=== PATIENT | male | born 1975 | race Caucasian/White ===

== ENCOUNTER → 2020-09-30 08:30 | Outpatient (CLI) | payer OTHER, SELFPAY ==
--- NOTE | 2020-09-30 08:36 | US_ITS ---
STUDY: ABDOMINAL ULTRASOUND - RIGHT UPPER QUADRANT REASON FOR VISIT: Male, 45 years old RUQ PAIN X 2-3 WEEKS TECHNIQUE: Ultrasound evaluation of the right upper quadrant was performed with real-time and static jonas-scale imaging. TECHNICAL QUALITY: Limited. Examination limited by bowel gas. COMPARISON: None. FINDINGS: Liver: The liver is enlarged and measures 20.2 cm. There is increased echogenicity consistent with fatty infiltration. The bile ducts are within normal limits. There is hepatic color flow. The direction of portal flow is hepatopetal. There is no demonstrated mass lesion. Gallbladder: Normal distended gallbladder. The gallbladder wall measures 2 mm. There is a negative sonographic Vale''s sign. There is no pericholecystic fluid. There is a solitary echogenic gallstone within the gallbladder. Common Bile Duct (C.B.D.): The common bile duct measures 2 mm. Pancreas: Normal size of the head, body of the pancreas. The tail portion is obscured due to overlying bowel gas. There is normal echogenicity of the pancreas. There is no demonstrated pancreatic mass or cyst. Right Kidney: Normal size of the right kidney. The right kidney measures 14.6 cm x 6.8 cm x 5.8 cm. Normal renal cortex. The right cortex measures 1.7 cm. There is no demonstrated renal mass or cyst. There is no right hydronephrosis. US/Gallbladder IMPRESSION: Hepatomegaly and fatty infiltration of the liver. Findings suggestive of a solitary gallstone measuring 4 mm. Electronically Signed: Clem Ying MD at 12:36 EST , Service support ,
== END ==
PROVIDERS: PCP Family Medicine; Referring Provider Family Medicine; Visit Provider Family Medicine
DX: K80.20 Calculus of gallbladder without cholecystitis without obstruction (principal); R10.11 Right upper quadrant pain
CPT/HCPCS: 76705

== ENCOUNTER → 2020-10-07 15:22 | Outpatient (CLI) | payer OTHER, SELFPAY ==
[2020-10-07 14:50] VITALS: BMI 36.9
== END ==
PROVIDERS: PCP Family Medicine; Referring Provider Surgery; Visit Provider Surgery
DX: L02.212 Cutaneous abscess of back [any part, except buttock and flank] (principal)
CPT/HCPCS: 87070; 87075; 87077; 87186; 87205

== ENCOUNTER 2021-09-22 08:47 | Outpatient (CLI) | payer OTHER, SELFPAY ==
--- NOTE | 2021-09-22 08:48 | US_ITS ---
STUDY: ABDOMINAL ULTRASOUND - RIGHT UPPER QUADRANT REASON FOR VISIT: Male, 46 years old FATTY LIVER TECHNIQUE: Ultrasound evaluation of the right upper quadrant was performed with real-time and static jonas-scale imaging. TECHNICAL QUALITY: Adequate. COMPARISON: Comparison is made with prior examination of the right upper quadrant dated 09/30/2020. FINDINGS: Liver: The liver is enlarged and measures 20.1 cm. There is increased echogenicity consistent with fatty infiltration. Focal fatty sparing is seen adjacent to the gallbladder fossa. The bile ducts are within normal limits. There is hepatic color flow. The direction of portal flow is hepatopetal. There is no demonstrated mass lesion. Gallbladder: Normal distended gallbladder. The gallbladder wall measures 1.6 mm. There is a negative sonographic Vale''s sign. There is no pericholecystic fluid. There is a solitary echogenic gallstone within the gallbladder. This measures 4 mm. Common Bile Duct (C.B.D.): The common bile duct measures 3.8 mm. Pancreas: Normal size of the head, body and tail of the pancreas. There is normal echogenicity of the pancreas. There is no demonstrated pancreatic mass or cyst. Right Kidney: Normal size of the right kidney. The right kidney measures 14.1 cm x 6.1 cm x 5.6 cm. Normal renal cortex. The right cortex measures 1.6 cm. There is no demonstrated renal mass or cyst. There is no right hydronephrosis. IMPRESSION: Hepatomegaly and diffuse fatty infiltration of the liver. Solitary gallstone measuring 4 mm. Electronically Signed: Clem Ying MD at 10:29 EST , STUDY: ABDOMINAL ULTRASOUND - ELASTOGRAPHY REASON FOR VISIT: Male, 46 years old. Hepatomegaly and fatty infiltration of the liver. TECHNIQUE: Liver stiffness measurements were obtained on a [employer] 85 ultrasound machine using a CA 1-7 probe following the SRU guidelines. 3 measurements were obtained using a 2-D-SWE method. The IQR/M was 22% suggesting a quality data set. TECHNICAL QUALITY: Adequate. COMPARISON: Comparison is made with prior examination done earlier in the day. FINDINGS: Liver: There is evidence of hepatomegaly and fatty infiltration of the liver. Median liver stiffness measured 9.3 kPa. US/Abdomen Limited IMPRESSION: Liver stiffness measures 9.3 kPa compatible with F3 Metavir score. Electronically Signed: Clem Ying MD at 10:31 EST ,
--- NOTE | 2021-09-22 08:49 | US_ITS ---
STUDY: ABDOMINAL ULTRASOUND - RIGHT UPPER QUADRANT REASON FOR VISIT: Male, 46 years old FATTY LIVER TECHNIQUE: Ultrasound evaluation of the right upper quadrant was performed with real-time and static jonas-scale imaging. TECHNICAL QUALITY: Adequate. COMPARISON: Comparison is made with prior examination of the right upper quadrant dated 09/30/2020. FINDINGS: Liver: The liver is enlarged and measures 20.1 cm. There is increased echogenicity consistent with fatty infiltration. Focal fatty sparing is seen adjacent to the gallbladder fossa. The bile ducts are within normal limits. There is hepatic color flow. The direction of portal flow is hepatopetal. There is no demonstrated mass lesion. Gallbladder: Normal distended gallbladder. The gallbladder wall measures 1.6 mm. There is a negative sonographic Vale''s sign. There is no pericholecystic fluid. There is a solitary echogenic gallstone within the gallbladder. This measures 4 mm. Common Bile Duct (C.B.D.): The common bile duct measures 3.8 mm. Pancreas: Normal size of the head, body and tail of the pancreas. There is normal echogenicity of the pancreas. There is no demonstrated pancreatic mass or cyst. Right Kidney: Normal size of the right kidney. The right kidney measures 14.1 cm x 6.1 cm x 5.6 cm. Normal renal cortex. The right cortex measures 1.6 cm. There is no demonstrated renal mass or cyst. There is no right hydronephrosis. IMPRESSION: Hepatomegaly and diffuse fatty infiltration of the liver. Solitary gallstone measuring 4 mm. Electronically Signed: Clem Ying MD at 10:29 EST , STUDY: ABDOMINAL ULTRASOUND - ELASTOGRAPHY REASON FOR VISIT: Male, 46 years old. Hepatomegaly and fatty infiltration of the liver. TECHNIQUE: Liver stiffness measurements were obtained on a [employer] 85 ultrasound machine using a CA 1-7 probe following the SRU guidelines. 3 measurements were obtained using a 2-D-SWE method. The IQR/M was 22% suggesting a quality data set. TECHNICAL QUALITY: Adequate. COMPARISON: Comparison is made with prior examination done earlier in the day. FINDINGS: Liver: There is evidence of hepatomegaly and fatty infiltration of the liver. Median liver stiffness measured 9.3 kPa. US/Elastography Parenchyma/Organ IMPRESSION: Liver stiffness measures 9.3 kPa compatible with F3 Metavir score. Electronically Signed: Clem Ying MD at 10:31 EST ,
== END 2021-09-22 23:59 | disposition short-term general hospital (02) ==
PROVIDERS: PCP Family Medicine Geriatric Medicine; Referring Provider Family Medicine Geriatric Medicine; Visit Provider Family Medicine Geriatric Medicine
DX: K76.0 Fatty (change of) liver, not elsewhere classified (principal)
CPT/HCPCS: 76705; 76981

== ENCOUNTER 2021-10-09 09:50 | Outpatient (CLI) | payer OTHER, SELFPAY ==
--- NOTE | 2021-10-09 09:56 | NM_ITS ---
CLINICAL: 46-year-old male with reported history of abdominal pain and nausea. RADIONUCLIDE HEPATOBILIARY SCINTIGRAPHY COMPARISON: Abdominal ultrasound report 09/22/2021 FINDINGS: Following the intravenous administration of 4.4 mCi of 99m Tc Mebrofenin, hepatobiliary images reveal: 1. Relatively prompt and homogeneous radiopharmaceutical concentration is noted by a normal sized liver. No parenchymal defects are identified. 2. Gallbladder activity is identified at 10 minutes post radiopharmaceutical administration. 3. Small intestinal tract is observed at 45 minutes following tracer injection. 4. Washout of the radiopharmaceutical by the hepatic parenchyma appears qualitatively normal. Cholecystokinin (0.02 ug/kg) was administered intravenously over a 30-minute period. The post CCK gallbladder ejection fraction calculated at 20 minutes following Cholecystokinin administration was noted to be 21.0 % (normal greater than 35%). CO/Hepatobilliary Img w/Pharm Int IMPRESSION: 1. ABNORMAL 99m Tc Mebrofenin hepatobiliary imaging examination with Cholecystokinin. A. A gallbladder ejection fraction calculated to be less than 35% following the administration of Cholecystokinin is consistent with the presence of functional hepatobiliary disease (gallbladder and/or sphincter of Oddi dyskinesia) and/or organic hepatobiliary disease (chronic acalculous cholecystitis and/or cystic duct syndrome) in patients with intermediate to high pretest probabilities of hepatobiliary illness. (Daniel Aguilar et al, Journal of Nuclear Medicine 32:1695, 1991). Electronically Signed: Gm Drew DO at 12:09 EST ,
== END 2021-10-09 23:59 | disposition short-term general hospital (02) ==
PROVIDERS: PCP Family Medicine Geriatric Medicine; Referring Provider Family Medicine Geriatric Medicine; Visit Provider Family Medicine Geriatric Medicine
DX: K80.20 Calculus of gallbladder without cholecystitis without obstruction (principal)
CPT/HCPCS: 78227; A9537; J2805

== ENCOUNTER 2021-10-20 12:07 | Outpatient (CLI) | payer OTHER, SELFPAY | END 2021-10-20 23:59 | disposition home or self-care (01) | LOC: PSN 12:09 | PROVIDERS: PCP Family Medicine Geriatric Medicine; Referring Provider Family Medicine Geriatric Medicine; Visit Provider Family Medicine Geriatric Medicine | DX: R68.83 Chills (without fever) (principal) | CPT/HCPCS: 87635; 87804; 87807; C9803; U0003; U0005 ==

== ENCOUNTER 2021-11-02 05:21 | Day surgery (SDC) | payer OTHER, SELFPAY ==
--- NOTE | 2021-11-02 | GASB_PTH ---
PATIENT: SIGIFREDO MCCULLOUGH LOC: EN U#:[id number] AGE/SX: 46/M ROOM: RE11/02/[address]: Dr. Qamar Shepard MD : 1975 BED: DIS: 11/02/2021 SPEC #: [id number] RECD: 11/02/21 13:56 STATUS: [facility] #: [id number] DOMONIQUE: 11/02/21 00:[address]: Qamar Shepard DEPT: SURGICAL PATHOLOGY RECD BY: Roscoe Reddy ENTERED: 11/02/21 13:56 SP TYPE: Gastric Bx OTHR DR: Dr. Angel Pang MD Tissues: A - Gastric mucous membrane B - Esophageal mucous membrane C - Esophageal mucous membrane Procedures: Special Stain Group II Surgery Specimen Level IV Alcian Blue/PAS (control) HEADER OPERATION: Colonoscopy, EGD ([facility] [place]) PRE-OP DIAGNOSIS: Change in stool, nausea, abdominal pain, abnormal abdominal ultrasound TISSUE SUBMITTED: A ? Antrum biopsy for histo and H. pylori, B ? Distal esophagus biopsy, C ? Mid esophagus biopsy MICROSCOPIC DIAGNOSIS A. Antrum, biopsy: Mild gastritis. See microscopic description and comment. B. Distal esophagus, biopsy: Fragments of gastroesophageal mucosa with mild chronic inflammation. Intestinal metaplasia (goblet cell metaplasia) not identified. See comment. C. Mid esophagus, biopsy: Fragments of squamous epithelium, no pathologic diagnosis. SJ:jerrod 11/03/2021 COMMENT A. The results of immunohistochemistry for Helicobacter pylori will be reported separately ([id number]). B. Alcian blue/PAS stain with matched control is used in the evaluation of the specimen. MICROSCOPIC DESCRIPTION Slides are reviewed. A. The specimen shows fragments of gastric mucosa with chronic inflammatory cell infiltrates in the lamina propria consisting of lymphocytes and plasma cells, consistent with mild chronic gastritis. GROSS DESCRIPTION A. Received in fixative is one container labeled with the patient's name and designated antrum biopsy. The specimen consists of one irregular fragment of light arias soft tissue that measures 0.8 x 0.2 x 0.1 cm. The specimen is totally submitted in one cassette. B - Received in fixative is one container labeled with the patient's name and designated distal esophagus biopsy. The specimen consists of multiple irregular fragments of light arias soft tissue that in aggregate measure 0.6 x 0.2 x 0.1 cm. The specimen is totally submitted in one cassette. C - Received in fixative is one container labeled with the patient's name and designated mid esophagus biopsy. The specimen consists of two irregular fragments of light arias soft tissue that in aggregate measure 0.7 x 0.2 x 0.1 cm. The specimen is totally submitted in one cassette. / SJ:rg 11/02/2021 TC:3 CPT: 81721 x3, [id number]
--- NOTE | 2021-11-02 | IMM_PTH ---
PATIENT: SIGIFREDO MCCULLOUGH LOC: EN U#:[id number] AGE/SX: 46/M ROOM: RE11/02/[address]: Dr. Qamar Shepard MD : 1975 BED: DIS: 11/02/2021 SPEC #: [id number] RECD: 11/03/21 07:36 STATUS: DANAY RECeleste #: [id number] DOMONIQUE: 11/02/21 00:[address]: Qamar Shepard DEPT: IMMUNOHISTOCHEMISTRY RECD BY: Tiffayn Matute ENTERED: 11/03/21 07:36 SP TYPE: IMMUNO OTHR DR: Dr. Angel Pang MD Tissues: A - Stomach, NOS Procedures: H Pylori (initial) PHYSICIAN & INSTITUTION [place] [id number] SPECIMEN INFORMATION: Tissue Source: A ? Antrum biopsy Clinical Info: Change in stool, nausea, abdominal pain Specimen Number: [id number] CPT code: 94732 METHODOLOGY: Deparaffinized sections of prefer/formalin-fixed tissue or PAP/DQ stained slides are incubated with monoclonal/polyclonal antibodies/oligonucleotide probes. Localization is made via biotin free immunoperoxidase method. Appropriate controls are performed and reacted as expected. Results on target cell population are indicated in the following table: RESULTS: ANTIBODY / CLONE RESULT Block A H Pylori (polyclonal) negative These tests were developed and their performance characteristics determined by [facility]. They may not have been cleared or approved by the U.S. Food and Drug Administration. The FDA has determined that such clearance or approval is not necessary. INTERPRETATION: A. Antrum biopsy: Negative for Helicobacter pylori organisms. BLANCA:jerrod 11/03/2021
--- NOTE | 2021-11-02 05:27 | PCM.HP.BLA ---
History and Physical Date of Admission: 11/02/21 Intake Visit Reasons: RUQ ABDOMINAL PAIN, GALLBLADDER Chief Complaint: RUQ abdominal pain, gallbladder Turbine Attendant Required: No Is patient in pain?: No Allergies No Known Allergies Allergy (Verified 10/23/21 13:40) Medications glipizide 5 mg PO BIDAC 01/08/17 [History Confirmed 10/23/21] losartan 100 mg-hydrochlorothiazide 25 mg tablet 1 tab PO DAILY 10/07/20 [History Confirmed 10/23/21] omega-3 fatty acids 1,000 mg capsule 1,000 mg PO BID 10/07/20 [History Confirmed 10/23/21] metformin 1,000 mg tablet 500 mg PO BIDCM tab 10/23/21 [History Confirmed 10/23/21] multivitamin 1 tab PO DAILY 10/23/21 [History Confirmed 10/23/21] pantoprazole 40 mg tablet,delayed release 40 mg PO DAILY 10/23/21 [History Confirmed 10/23/21] simvastatin 40 mg tablet 40 mg PO DAILY 10/23/21 [History Confirmed 10/23/21] [facility] Medical History (Updated 10/23/21 @ 14:[address] Qamar Shepard MD) Change in stool Diabetes mellitus Essential hypertension, benign Hyperlipidemia, mixed Sleep apnea TIA (transient ischemic attack) Surgical History s/p anal fistulotomy Family History (Updated 10/23/21 @ 13:35 by Francine Tuesday) Father Diabetes Heart disease Hypertension Kidney disease High cholesterol Brother Kidney disease Social History (Updated 10/23/21 @ 13:35 by Francine Tuesday) Smoking Status: Former smoker alcohol intake: current substance use type: does not use HPI HPI HPI: SIGIFREDO MCCULLOUGH, is a 46 M who presents to the office today for surgical consideration of abnormal gallbladder imaging and abdominal concerns. The patient is referred to Dr. Dr. Pang and a copy of my surgical consultation will be returned to him. On ultrasound the patient is noted to have a 4 mm item within the gallbladder. Hepatobiliary imaging demonstrated ejection fraction of 21%. It is of note that that patient claims that over the past year he has intentionally had some weight loss. He changed his diet to a more appropriate diet. Has had about a 20 pound weight loss. He continues to have right upper quadrant pain. He claims that after eating he will feel like there is a motor running in that area. He has been burping and belching more. He has had some constipation. He has had repairer colored stools. Fatty foods will cause him intolerance. He denies any bright red blood per rectum or melena. He was a previous tobacco user however he quit. He works construction. He experienced Covid-19 approximately March 2020. He has not been vaccinated. He has had a gallbladder ultrasound x2 in the hepatobiliary scan. He has not had a CT scan. October 09, 2021 CLINICAL: 46-year-old male with reported history of abdominal pain and nausea. RADIONUCLIDE HEPATOBILIARY SCINTIGRAPHY COMPARISON: Abdominal ultrasound report 09/22/2021 FINDINGS: Following the intravenous administration of 4.4 mCi of 99m Tc Mebrofenin, hepatobiliary images reveal: 1. Relatively prompt and homogeneous radiopharmaceutical concentration is noted by a normal sized liver. No parenchymal defects are identified. 2. Gallbladder activity is identified at 10 minutes post radiopharmaceutical administration. 3. Small intestinal tract is observed at 45 minutes following tracer injection. 4. Washout of the radiopharmaceutical by the hepatic parenchyma appears qualitatively normal. Cholecystokinin (0.02 ug/kg) was administered intravenously over a 30-minute period. The post CCK gallbladder ejection fraction calculated at 20 minutes following Cholecystokinin administration was noted to be 21.0 % (normal greater than 35%). NM/Hepatobilliary Img w/Pharm Int IMPRESSION: 1. ABNORMAL 99m Tc Mebrofenin hepatobiliary imaging examination with Cholecystokinin. A. A gallbladder ejection fraction calculated to be less than 35% following the administration of Cholecystokinin is consistent with the presence of functional hepatobiliary disease (gallbladder and/or sphincter of Oddi dyskinesia) and/or organic hepatobiliary disease (chronic acalculous cholecystitis and/or cystic duct syndrome) in patients with intermediate to high pretest probabilities of hepatobiliary illness. (Daniel Aguilar et al, Journal of Nuclear Medicine 32:1695, 1991). Electronically Signed: Gm Drew DO at 12:09 EST Reading Location ID and State: [facility] / [place] Tel , Service support , September 22, 2021 STUDY: ABDOMINAL ULTRASOUND - RIGHT UPPER QUADRANT REASON FOR VISIT: Male, 46 years old FATTY LIVER TECHNIQUE: Ultrasound evaluation of the right upper quadrant was performed with real-time and static jonas-scale imaging. TECHNICAL QUALITY: Adequate. COMPARISON: Comparison is made with prior examination of the right upper quadrant dated 09/30/2020. FINDINGS: Liver: The liver is enlarged and measures 20.1 cm. There is increased echogenicity consistent with fatty infiltration. Focal fatty sparing is seen adjacent to the gallbladder fossa. The bile ducts are within normal limits. There is hepatic color flow. The direction of portal flow is hepatopetal. There is no demonstrated mass lesion. Gallbladder: Normal distended gallbladder. The gallbladder wall measures 1.6 mm. There is a negative sonographic Vale''s sign. There is no pericholecystic fluid. There is a solitary echogenic gallstone within the gallbladder. This measures 4 mm. Common Bile Duct (C.B.D.): The common bile duct measures 3.8 mm. Pancreas: Normal size of the head, body and tail of the pancreas. There is normal echogenicity of the pancreas. There is no demonstrated pancreatic mass or cyst. Right Kidney: Normal size of the right kidney. The right kidney measures 14.1 cm x 6.1 cm x 5.6 cm. Normal renal cortex. The right cortex measures 1.6 cm. There is no demonstrated renal mass or cyst. There is no right hydronephrosis. IMPRESSION: Hepatomegaly and diffuse fatty infiltration of the liver. Solitary gallstone measuring 4 mm. Electronically Signed: Clem Ying MD at 10:29 EST , STUDY: ABDOMINAL ULTRASOUND - ELASTOGRAPHY REASON FOR VISIT: Male, 46 years old. Hepatomegaly and fatty infiltration of the liver. TECHNIQUE: Liver stiffness measurements were obtained on a [employer] RS 85 ultrasound machine using a CA 1-7 probe following the SRU guidelines. 3 measurements were obtained using a 2-D-SWE method. The IQR/M was 22% suggesting a quality data set. TECHNICAL QUALITY: Adequate. COMPARISON: Comparison is made with prior examination done earlier in the day. FINDINGS: Liver: There is evidence of hepatomegaly and fatty infiltration of the liver. Median liver stiffness measured 9.3 kPa. US/Abdomen Limited IMPRESSION: Liver stiffness measures 9.3 kPa compatible with F3 Metavir score. Electronically Signed: Clem Ying MD at 10:31 EST , ROS General General: Yes weight change and fatigue; No appetite, colon cancer, breast cancer or weakness HEENT HEENT: No difficulty swallowing, eye injury, eye surgery, swollen glands or hoarseness Endo Endocrine: Yes diabetes mellitus; No thyroid disease, thyroid cancer, Hair loss, heat intolerance or cold intolerance Skin Skin: No rash or changing moles Musc Musculoskeletal: Yes back problems; No arthritis, rheumatoid arthritis, gout or joint pain Cardio Cardiovascular: Yes high blood pressure; No murmur, pacemaker, heart disease, atrial fibrillation, heart attack, heart stent, palpitations, shortness of breat with exertion or chest pain Psych Psychiatric: No depression, anxiety or hearing voices Resp Respiratory: No shortness of breath, Yes sleep apnea, Yes cough, No COPD, No asthma, No emphysema and No wheezing Gastro Gastrointestinal: Yes abdominal pain, Yes nausea or vomiting, Yes diarrhea, Yes constipation, No blood in stool, Yes acid reflux, No hemorrhoids, No ulcers, Yes gallbladder problem and No black,tarry stools Silvio Hematologic: No blood thinners, No blood disorders, No bleeding, No anemia and No blood clots Neuro Neurologic: No system reviewed and no additional complaints, except as documented, No as per HPI, No abnormal gait, No abnormal hearing, No abnormal movements, No abnormal speech, No behavioral changes, No burning sensations, No confusion, No convulsions, No disequilibrium, No dizziness, No localized weakness, No frequent falls, No headache(s), No lack of coordination, No loss of vision, No memory loss, No numbness, No other visual disturbances, No radicular pain, No restless legs, No sensory deficit, No syncope, No tingling, No tremor(s), No weakness and No other Exam Const General: cooperative, comfortable and no acute distress Nutritional Appearance: average body habitus Orientation: alert and awake [facility] Head: normal to inspection Eyes General: appearance normal, both eyes and all related structures Chest Chest palpation & inspection: normal inspection of the chest Resp Effort & Inspection: normal respiratory effort Percussion: percussion normal Cardio Rate: regular rate Rhythm: regular rhythm GI Other: Soft, nontender, overweight, no hepatosplenomegaly, normal bowel sounds Musc Cervical Spine: normal cervical lordosis Skin General: no rashes or lesions noted Neuro General: patient alert and patient awake Extrem General: no calf tenderness Psych Appearance: grossly normal Assessment and Plan Assessment and Plan (1) Change in stool: Status: Acute (2) Nausea: Status: Acute (3) Abdominal pain: Status: Acute Qualifiers: Abdominal location: right upper quadrant Qualified Code(s): R10.11 - Right upper quadrant pain (4) Abnormal abdominal ultrasound: Status: Acute Orders: Orders: Colonoscopy Today R19.5 EGD Today R19.5 CBC W/Diff, Automated Today R19.5 Plan - Dr. Qamar Shepard MD: 46-year-old gentleman with complexity of issues. I have personally reviewed his right upper quadrant ultrasound and the item that is discussed is a 4 mm gallstone does not seemingly make sense. Is in the exact same location as the previous study. It appears to be adherent to the wall. It would be odd to have 1 solitary gallstone. Not clear whether this is adenomyosis or a polyp. It is not clear that it is causing the etiology of the patient's symptoms. He claims that after eating particularly fatty meal he can literally feel a grinding motor type sensation within the right upper quadrant. Claims he has had more nausea burping and belching recently. The weight loss was mostly voluntary. Claims that he has had repairer pale-colored stools. With all of that in mind I recommend to him that we do an upper and lower endoscopy looking for source of this pain. He is now evolving into but having more right-sided pain epigastric pain even left upper quadrant pain. Is complaining of constipation and a change in the appearance of his stool. Is complaining of increased upper GI symptoms as well. I propose a combined upper and lower endoscopy. I propose that we obtain a complete metabolic profile and a CBC. Pending these results we will then make further recommendations. The patient seems to have biliary dysfunction at least based upon the hepatobiliary scan. I have discussed with him potential recommendations for laparoscopic cholecystectomy selective cholangiography. I have instructed him however that that gives us about a 60% chance of improvement. He has had an opportunity to ask and have questions answered. He is very much interested in pursuing his discomforts at this time. I appreciate the opportunity of assisting with the surgical care. Copy: Dr. Angel Shepard M.D., F.A.C.S. I have re-examined the patient. There are no clinical changes since date of exam.
[2021-11-02] MEDS: Lactated Ringers 1,000 ML 15 ML IV (05:40)
[2021-11-02 06:01] VITALS: BP 140/90; PULSE 73; RESP 18; TEMP 36.4; O2SAT 99; BMI 33.3
[2021-11-02 07:05] VITALS: BP 128/70; BP 140/90; PULSE 69; RESP 16; TEMP 37; O2SAT 99
--- NOTE | 2021-11-02 07:08 | OP.EGD_ITS ---
Patient Name: Lopez Calvillo Procedure Date: 11/02/2021 6:20 AM Date of : 1975 Age: 46 Procedure: Upper GI endoscopy Indications: Epigastric abdominal pain Providers: Qamar Shepard MD Referring MD: Angel Pang MD Medicines: See the Anesthesia note for documentation of the administered medications Complications: No immediate complications. Procedure: Pre-Anesthesia Assessment: - Prior to the procedure, a History and Physical was performed, and patient medications and allergies were reviewed. The patient's tolerance of previous anesthesia was also reviewed. The risks and benefits of the procedure and the sedation options and risks were discussed with the patient. All questions were answered, and informed consent was obtained. Prior Anticoagulants: The patient has taken no previous anticoagulant or antiplatelet agents. ASA Grade Assessment: II - A patient with mild systemic disease. After reviewing the risks and benefits, the patient was deemed in satisfactory condition to undergo the procedure. After obtaining informed consent, the endoscope was passed under direct vision. Throughout the procedure, the patient's blood pressure, pulse, and oxygen saturations were monitored continuously. The Endoscope was introduced through the mouth, and advanced to the second part of duodenum. The upper GI endoscopy was accomplished without difficulty. The patient tolerated the procedure well. Scope In: 6:37:04 AM Scope Out: 6:43:08 AM Total Procedure Duration Time 0 hours 6 minutes 4 seconds Findings: Esophagitis with no bleeding was found 44 cm from the incisors. Biopsies were taken with a cold forceps for histology. Diffuse mildly erythematous mucosa without bleeding was found in the gastric antrum. Biopsies were taken with a cold forceps for histology. The examined duodenum was normal. The mid esophagus was normal. Biopsies were taken with a cold forceps for histology. Impression: - Reflux esophagitis. Biopsied. - Erythematous mucosa in the antrum. Biopsied. - Normal examined duodenum. Recommendation: - Discharge patient to home. - Resume previous diet. - Continue present medications. - Telephone my office for pathology results in 1 week. Findings do not correlate with the patient's concerns of epigastric and right upper quadrant pain. Will consider laparoscopic cholecystectomy Procedure Code(s): --- Professional --- 43501, Esophagogastroduodenoscopy, flexible, transoral; with biopsy, single or multiple Diagnosis Code(s): --- Professional --- K21.0, Gastro-esophageal reflux disease with esophagitis K31.89, Other diseases of stomach and duodenum R10.13, Epigastric pain CPT copyright 2017 [employer]. All rights reserved. The codes documented in this report are preliminary and upon evaluation manager review may be revised to meet current compliance requirements. Qamar Shepard MD 11/02/2021 7:08:23 AM This report has been signed electronically. Number of Addenda: 0 Note Initiated On: 11/02/2021 6:20 AM
--- NOTE | 2021-11-02 07:10 | OP.CCLET_ITS ---
11/02/2021 Angel Pang MD [address] [place] [address] Re : Upper GI endoscopy procedure for Lopez Walkerler Dear Dr. Pang This procedure was performed on Tuesday, November 02, 2021. My impressions and recommendations are as follows: Impressions : - Reflux esophagitis. Biopsied. - Erythematous mucosa in the antrum. Biopsied. - Normal examined duodenum. Recommendations : - Discharge patient to home. - Resume previous diet. - Continue present medications. - Telephone my office for pathology results in 1 week. Findings do not correlate with the patient's concerns of epigastric and right upper quadrant pain. Will consider laparoscopic cholecystectomy My findings are described in the full procedure note, which is enclosed. If I can be of further assistance, please feel free to contact me at Doctor phone number(s): Work: . Sincerely, Qamar Shepard MD 11/02/2021 7:08:23 AM This report has been signed electronically.
[2021-11-02 07:11] VITALS: BP 140/90; BP 93/74; PULSE 66; RESP 16; O2SAT 97
--- NOTE | 2021-11-02 07:14 | OP.COLON_ITS ---
Patient Name: Lopez Calvillo Procedure Date: 11/02/2021 6:44 AM Date of : 1975 Age: 46 Procedure: Colonoscopy Indications: Abdominal pain in the right upper quadrant Providers: Qamar Shepard MD Referring MD: Angel Pang MD Medicines: See the Anesthesia note for documentation of the administered medications Patient Profile: Last Colonoscopy: none. The patient's first colonoscopy is today. Complications: No immediate complications. Procedure: Pre-Anesthesia Assessment: - Prior to the procedure, a History and Physical was performed, and patient medications and allergies were reviewed. The patient's tolerance of previous anesthesia was also reviewed. The risks and benefits of the procedure and the sedation options and risks were discussed with the patient. All questions were answered, and informed consent was obtained. Prior Anticoagulants: The patient has taken no previous anticoagulant or antiplatelet agents. ASA Grade Assessment: II - A patient with mild systemic disease. After reviewing the risks and benefits, the patient was deemed in satisfactory condition to undergo the procedure. After I obtained informed consent, the scope was passed under direct vision. Throughout the procedure, the patient's blood pressure, pulse, and oxygen saturations were monitored continuously. The colonoscope was introduced through the anus and advanced to the cecum, identified by appendiceal orifice and ileocecal valve. The colonoscopy was performed without difficulty. The patient tolerated the procedure well. The quality of the bowel preparation was good. The ileocecal valve and the appendiceal orifice were photographed. Scope In: 6:47:14 AM Scope Withdrawal Time 0 hours 6 minutes 51 seconds Scope Out: 7:02:46 AM Total Procedure Duration Time 0 hours 15 minutes 32 seconds Findings: The digital rectal exam findings include non-thrombosed external hemorrhoids, non-thrombosed internal hemorrhoids and internal hemorrhoids that prolapse with straining, but spontaneously regress to the resting position (Grade II). Pertinent negatives include normal prostate (size, shape, and consistency). The left colon was moderately tortuous. Advancing the scope required using manual pressure. The exam was otherwise without abnormality. Impression: - Non-thrombosed external hemorrhoids, non-thrombosed internal hemorrhoids and internal hemorrhoids that prolapse with straining, but spontaneously regress to the resting position (Grade II) found on digital rectal exam. - Tortuous colon. - The examination was otherwise normal. - No specimens collected. Recommendation: - Discharge patient to home. - Resume previous diet. - Continue present medications. - Repeat colonoscopy in 10 years for screening purposes. Procedure Code(s): --- Professional --- 64890, Colonoscopy, flexible; diagnostic, including collection of specimen(s) by brushing or washing, when performed (separate procedure) Diagnosis Code(s): --- Professional --- K64.1, Second degree hemorrhoids K64.4, Residual hemorrhoidal skin tags R10.11, Right upper quadrant pain Q43.8, Other specified congenital malformations of intestine CPT copyright 2017 [employer]. All rights reserved. The codes documented in this report are preliminary and upon dispute coordinator review may be revised to meet current compliance requirements. Qamar Shepard MD 11/02/2021 7:13:51 AM This report has been signed electronically. Number of Addenda: 0 Note Initiated On: 11/02/2021 6:44 AM
[2021-11-02 07:15] VITALS: BP 110/70; BP 140/90; PULSE 69; RESP 16; O2SAT 97
--- NOTE | 2021-11-02 07:15 | OP.CCLET_ITS ---
11/02/2021 Angel Pang MD [address] [place] [address] Re : Colonoscopy procedure for Lopez Calvillo Dear Dr. Pang This procedure was performed on Tuesday, November 02, 2021. My impressions and recommendations are as follows: Impressions : - Non-thrombosed external hemorrhoids, non-thrombosed internal hemorrhoids and internal hemorrhoids that prolapse with straining, but spontaneously regress to the resting position (Grade II) found on digital rectal exam. - Tortuous colon. - The examination was otherwise normal. - No specimens collected. Recommendations : - Discharge patient to home. - Resume previous diet. - Continue present medications. - Repeat colonoscopy in 10 years for screening purposes. My findings are described in the full procedure note, which is enclosed. If I can be of further assistance, please feel free to contact me at Doctor phone number(s): Work: . Sincerely, Qamar Shepard MD 11/02/2021 7:13:51 AM This report has been signed electronically.
[2021-11-02 07:20] VITALS: BP 108/71; BP 140/90; PULSE 64; RESP 16; TEMP 36.7; O2SAT 97
[2021-11-02 07:32] VITALS: BP 140/90
[2021-11-02 08:11] LABS: Bedside Glucose 132 mg/dL (70-110)
== END 2021-11-02 23:59 | disposition home or self-care (01) ==
LOC: EN 05:22 → AC 05:23
PROVIDERS: PCP Family Medicine Geriatric Medicine; Referring Provider Family Medicine Geriatric Medicine; Visit Provider Surgery
PROC: 0DJD8ZZ Inspection of Lower Intestinal Tract, Via Natural or Artificial Opening Endoscopic (ICD-10-PCS; CPT 45378; principal; 2021-11-02 06:25)
DX: K64.8 Other hemorrhoids (principal); E11.9 Type 2 diabetes mellitus without complications; R16.0 Hepatomegaly, not elsewhere classified; I10 Essential (primary) hypertension; K80.20 Calculus of gallbladder without cholecystitis without obstruction; K64.4 Residual hemorrhoidal skin tags; E78.2 Mixed hyperlipidemia; Z87.891 Personal history of nicotine dependence; K76.0 Fatty (change of) liver, not elsewhere classified; K21.00 Gastro-esophageal reflux disease with esophagitis, without bleeding; Z79.84 Long term (current) use of oral hypoglycemic drugs; R14.2 Eructation
CPT/HCPCS: 45378; 43239; 82962; 87426; 88305; 88313; 88342; C9803; J7120; J2405

== ENCOUNTER 2021-11-12 11:19 | Outpatient (CLI) | payer OTHER, SELFPAY ==
[2021-11-12 12:45] LABS: Absolute Lymphocyte Count 1.51 X10^3/uL (0.83-4.51); Absolute Neutrophil Count 3.1 X10^3/uL (2.0-7.7); Basophil# 0.02 X10^3/uL; Basophil% 0.4 % (0-1); Eosinophil# 0.19 X10^3/uL; Eosinophils% 3.7 % (0-5); Hematocrit 39.8 % (40-54); Hemoglobin 13.7 g/dL (13.0-16.5); Lymphocyte # 1.51 X10^3/ul (0.83-4.51); Mean Corp Hgb Conc 34.4 g/dL (32-36); Mean Corpuscular Hgb 28.4 pg (27.0-32.0); Mean Corpuscular Volume 82.6 fL (80-94); Mean Platelet Vol. 9.7 fl (6.2-12.0); Monocyte# 0.35 X10^3/uL; Monocyte% 6.7 % (0-10); NRBC Flagged by Analyzer 0 % (0-5); Neutrophil # 3.11 X10^3/uL (2.7-7.7); Neutrophil % 59.8 % (47-70); Platelet Count 200 K/mm3 (150-450); RBC Distribution Width CV 12.4 % (11.6-14.6); RBC Distribution Width SD 37.5 fl (35.1-43.9); Red Blood Count 4.82 M/mm3 (4.6-6.2); White Blood Count 5.2 K/mm3 (4.4-11.0)
[2021-11-12 13:07] LABS: Vitamin B12 470 pg/mL (211-911)
[2021-11-12 13:10] LABS: ALB/GLOB Ratio 1.1 RATIO (0.9-2.4); AST(SGOT) 19 U/L (15-37); Alanine Aminotransfer ALT/SGPT 29 U/L (16-61); Albumin, Serum 3.9 g/dL (3.2-5.0); Alkaline Phosphatase 62 U/L (45-117); Anion Gap 5 (5-15); BUN 17 mg/dL (7-18); BUN/Creat Ratio 21.7 RATIO (10-20); Chloride 104 mmol/L (98-107); Creatinine, Serum 0.78 mg/dL (0.70-1.30); EST Glomerular Filtration Rate 114 mL/min (>60); Est Glom Filt Rate - Afr Amer 138 mL/min (>60); Globulin 3.7 g/dL (2.2-4.2); Glucose 115 mg/dL (74-106); Potassium 3.5 mmol/L (3.5-5.1); Protein, Total 7.6 g/dL (6.4-8.2); Sodium Level 137 mmol/L (136-145); Thyroid Stim Hormone (TSH) 1.53 uIU/mL (0.358-3.74)
== END 2021-11-12 23:59 | disposition home or self-care (01) ==
LOC: POLAB3 11:20
PROVIDERS: PCP Family Medicine Geriatric Medicine; Visit Provider Family Medicine Geriatric Medicine
DX: E11.65 Type 2 diabetes mellitus with hyperglycemia (principal); R53.83 Other fatigue; E53.8 Deficiency of other specified B group vitamins
CPT/HCPCS: 36415; 80053; 82607; 84443; 85025

== ENCOUNTER 2021-11-25 08:26 | Day surgery (SDC) | payer OTHER, SELFPAY ==
--- NOTE | 2021-11-24 16:04 | EKG12_ITS ---
Test Reason : PREOP Blood Pressure : / mmHG Vent. Rate : 075 BPM Atrial Rate : 075 BPM P-R Int : 164 ms QRS Dur : 098 ms QT Int : 374 ms P-R-T Axes : 067 -11 046 degrees QTc Int : 417 ms Normal sinus rhythm Normal ECG Confirmed by MAJO ORTEGA, KOBY ([id number]), offline editor YASMINE RIGGINS ([id number]) on 11/26/2021 9:33:39 AM Referred By: Qamar Shepard Confirmed By:KOBY KASPER MD
[2021-11-25] VITALS (8 sets, daily range): BP systolic 100–115; BP diastolic 55–72; PULSE 46–74; RESP 16–18; TEMP 36.2–37.4; O2SAT 93–97; BMI 34.1
--- NOTE | 2021-11-25 | GALL_PTH ---
PATIENT: SIGIFREDO MCCULLOUGH LOC: [facility] [place] U#:[id number] AGE/SX: 46/M ROOM: RE11/25/[address]: Dr. Qamar Shepard MD : 1975 BED: DIS: 11/25/2021 SPEC #: [id number] RECD: 11/25/21 14:30 STATUS: DANAY GARG #: [id number] DOMONIQUE: 11/25/21 00:[address]: Qamar Shepard DEPT: SURGICAL PATHOLOGY RECD BY: Roscoe Reddy ENTERED: 11/26/21 07:52 SP TYPE: ADELAIDA TUBBS DR: Dr. Angel Pang MD Tissues: Gallbladder, NOS Procedures: Surgery Specimen Level III HEADER OPERATION: Laparoscopic cholecystectomy with IOC PRE-OP DIAGNOSIS: Biliary dyskinesia TISSUE SUBMITTED: Gallbladder MICROSCOPIC DIAGNOSIS Gallbladder, cholecystectomy: Chronic cholecystitis and cholelithiasis. AM:jerrod 11/27/2021 MICROSCOPIC DESCRIPTION Slides are reviewed. GROSS DESCRIPTION Received is one container labeled with the patient's name and designated gallbladder. The specimen consists of a gallbladder measuring 8 x 3.5 x 3.4 cm. The external surface is smooth and glistening. Focally, it is granular, hemorrhagic and contains cautery artifact. The lumen of the gallbladder contains abundant yellow-green mucoid bile and multiple green-arias calculi ranging in size from 0.1 to 0.7 cm in greatest dimension. The mucosa is bile-stained and without any mass lesions. The gallbladder wall averages 1 cm in thickness and is free of mass lesions. Staffing Assistant sections of the gallbladder and the cystic duct at margin of resection are submitted in one cassette. / AM:jerrod 11/26/2021 TC:3 CPT: 27173
[2021-11-25 09:11] LABS: Bedside Glucose 132 mg/dL (74-106)
[2021-11-25] MEDS: Lactated Ringers 1,000 ML 30 ML IV ×2 (09:12→12:58)
--- NOTE | 2021-11-25 10:08 | PCM.HP.BLA ---
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 Is patient in pain?: Yes Allergies No Known Allergies Allergy (Verified 11/12/21 14:30) Medications glipizide 5 mg PO PRN PRN 01/08/17 [History Confirmed 11/12/21] losartan 100 mg-hydrochlorothiazide 25 mg tablet 1 tab PO DAILY 10/07/20 [History Confirmed 11/12/21] omega-3 fatty acids 1,000 mg capsule 1,000 mg PO BID 10/07/20 [History Confirmed 11/12/21] metformin 1,000 mg tablet 500 mg PO BIDCM tab 10/23/21 [History Confirmed 11/12/21] multivitamin 1 tab PO DAILY 10/23/21 [History Confirmed 11/12/21] pantoprazole 40 mg tablet,delayed release 40 mg PO DAILY 10/23/21 [History Confirmed 11/12/21] simvastatin 40 mg tablet 40 mg PO DAILY 10/23/21 [History Confirmed 11/12/21] Lactobacillus acidophilus [Probiotic] 10,000 mmu cells PO BID 10/28/21 [History Confirmed 11/12/21] Red Beet 1 tab PO/SL DAILY 10/28/21 [History Confirmed 11/12/21] PFSH Medical History (Updated 11/12/21 @ 15:[address] Qamar Shepard MD) Alcohol use Back pain Change in stool Chronic cough CPAP (continuous positive airway pressure) dependence Diabetes mellitus Essential hypertension, benign Former smoker Gastric reflux High cholesterol History of pain when walking History of steroid therapy History of stress test Hyperlipidemia, mixed Hypertension Leg cramps Sleep apnea TIA (transient ischemic attack) Wears dentures Surgical History (Updated 11/12/21 @ 14:24 by Vanessa Vinson) History of colonoscopy (~10/2021) History of esophagogastroduodenoscopy (EGD) (~10/2021) Hx of tooth extraction s/p anal fistulotomy Family History Father Diabetes Heart disease Hypertension Kidney disease High cholesterol Brother Kidney disease Social History Smoking Status: Former smoker alcohol intake: current substance use type: does not use HPI HPI HPI: SIGIFREDO MCCULLOUGH, is a 46 M who presents to the office today for ongoing surgical discussion regarding abdominal pain. To help evaluate his situation on November 02, 2021 I performed a esophagogastroduodenoscopy in combination with a colonoscopy. I felt that there was some mild reflux changes. Some minimal erythema of the antrum. These findings were very mild and nonspecific and not correlating with the patient's complaint of right upper quadrant pain. I therefore propose for him a laparoscopic cholecystectomy and he returns to discuss that finding. The colonoscopy on that same date demonstrated hemorrhoids and a tortuous colon but no acute findings and follow-up in 10 years was recommended. Pathology suggested mild gastritis, mild chronic inflammation of the distal esophagus with no evidence of Dudley's, mid esophageal biopsies were not remarkable and H. pylori was negative. The patient notes that he continues to have right upper quadrant pain. This has become almost more constant in nature. The esophagogastroduodenoscopy findings do not correlate with the severity and positioning of his discomfort. Previous gallbladder ultrasound demonstrates a 4 mm structure. Radiology feels that it is a solitary gallstone. That is less clear to me. Hepatobiliary scan demonstrated a diminished ejection fraction of 21% My previous notes reflect the following No Known Allergies Allergy (Verified 10/23/21 13:40) Medications glipizide 5 mg PO BIDAC 01/08/17 [History Confirmed 10/23/21] losartan 100 mg-hydrochlorothiazide 25 mg tablet 1 tab PO DAILY 10/07/20 [History Confirmed 10/23/21] omega-3 fatty acids 1,000 mg capsule 1,000 mg PO BID 10/07/20 [History Confirmed 10/23/21] metformin 1,000 mg tablet 500 mg PO BIDCM tab 10/23/21 [History Confirmed 10/23/21] multivitamin 1 tab PO DAILY 10/23/21 [History Confirmed 10/23/21] pantoprazole 40 mg tablet,delayed release 40 mg PO DAILY 10/23/21 [History Confirmed 10/23/21] simvastatin 40 mg tablet 40 mg PO DAILY 10/23/21 [History Confirmed 10/23/21] [facility] Medical History (Updated 10/23/21 @ 14:[address] Qamar Shepard MD) Change in stool Diabetes mellitus Essential hypertension, benign Hyperlipidemia, mixed Sleep apnea TIA (transient ischemic attack) Surgical History s/p anal fistulotomy Family History (Updated 10/23/21 @ 13:35 by Francine Tuesday) Father Diabetes Heart disease Hypertension Kidney disease High cholesterol Brother Kidney disease Social History (Updated 10/23/21 @ 13:35 by Francine Tuesday) Smoking Status: Former smoker alcohol intake: current substance use type: does not use HPI HPI HPI: SIGIFREDO MCCULLOUGH, is a 46 M who presents to the office today for surgical consideration of abnormal gallbladder imaging and abdominal concerns. The patient is referred to Dr. Dr. Pang and a copy of my surgical consultation will be returned to him. On ultrasound the patient is noted to have a 4 mm item within the gallbladder. Hepatobiliary imaging demonstrated ejection fraction of 21%. It is of note that that patient claims that over the past year he has intentionally had some weight loss. He changed his diet to a more appropriate diet. Has had about a 20 pound weight loss. He continues to have right upper quadrant pain. He claims that after eating he will feel like there is a motor running in that area. He has been burping and belching more. He has had some constipation. He has had manufacturing technology professor colored stools. Fatty foods will cause him intolerance. He denies any bright red blood per rectum or melena. He was a previous tobacco user however he quit. He works construction. He experienced Covid-19 approximately March 2020. He has not been vaccinated. He has had a gallbladder ultrasound x2 in the hepatobiliary scan. He has not had a CT scan. October 09, 2021 CLINICAL: 46-year-old male with reported history of abdominal pain and nausea. RADIONUCLIDE HEPATOBILIARY SCINTIGRAPHY COMPARISON: Abdominal ultrasound report 09/22/2021 FINDINGS: Following the intravenous administration of 4.4 mCi of 99m Tc Mebrofenin, hepatobiliary images reveal: 1. Relatively prompt and homogeneous radiopharmaceutical concentration is noted by a normal sized liver. No parenchymal defects are identified. 2. Gallbladder activity is identified at 10 minutes post radiopharmaceutical administration. 3. Small intestinal tract is observed at 45 minutes following tracer injection. 4. Washout of the radiopharmaceutical by the hepatic parenchyma appears qualitatively normal. Cholecystokinin (0.02 ug/kg) was administered intravenously over a 30-minute period. The post CCK gallbladder ejection fraction calculated at 20 minutes following Cholecystokinin administration was noted to be 21.0 % (normal greater than 35%). NM/Hepatobilliary Img w/Pharm Int IMPRESSION: 1. ABNORMAL 99m Tc Mebrofenin hepatobiliary imaging examination with Cholecystokinin. A. A gallbladder ejection fraction calculated to be less than 35% following the administration of Cholecystokinin is consistent with the presence of functional hepatobiliary disease (gallbladder and/or sphincter of Oddi dyskinesia) and/or organic hepatobiliary disease (chronic acalculous cholecystitis and/or cystic duct syndrome) in patients with intermediate to high pretest probabilities of hepatobiliary illness. (Daniel Aguilar et al, Journal of Nuclear Medicine 32:1695, 1990). Electronically Signed: Gm Drew DO at 12:09 EST , September 22, 2021 STUDY: ABDOMINAL ULTRASOUND - RIGHT UPPER QUADRANT REASON FOR VISIT: Male, 46 years old FATTY LIVER TECHNIQUE: Ultrasound evaluation of the right upper quadrant was performed with real-time and static jonas-scale imaging. TECHNICAL QUALITY: Adequate. COMPARISON: Comparison is made with prior examination of the right upper quadrant dated 09/30/2020. FINDINGS: Liver: The liver is enlarged and measures 20.1 cm. There is increased echogenicity consistent with fatty infiltration. Focal fatty sparing is seen adjacent to the gallbladder fossa. The bile ducts are within normal limits. There is hepatic color flow. The direction of portal flow is hepatopetal. There is no demonstrated mass lesion. Gallbladder: Normal distended gallbladder. The gallbladder wall measures 1.6 mm. There is a negative sonographic Vale''s sign. There is no pericholecystic fluid. There is a solitary echogenic gallstone within the gallbladder. This measures 4 mm. Common Bile Duct (C.B.D.): The common bile duct measures 3.8 mm. Pancreas: Normal size of the head, body and tail of the pancreas. There is normal echogenicity of the pancreas. There is no demonstrated pancreatic mass or cyst. Right Kidney: Normal size of the right kidney. The right kidney measures 14.1 cm x 6.1 cm x 5.6 cm. Normal renal cortex. The right cortex measures 1.6 cm. There is no demonstrated renal mass or cyst. There is no right hydronephrosis. IMPRESSION: Hepatomegaly and diffuse fatty infiltration of the liver. Solitary gallstone measuring 4 mm. Electronically Signed: Clem Ying MD at 10:29 EST , STUDY: ABDOMINAL ULTRASOUND - ELASTOGRAPHY REASON FOR VISIT: Male, 46 years old. Hepatomegaly and fatty infiltration of the liver. TECHNIQUE: Liver stiffness measurements were obtained on a [employer] RS 85 ultrasound machine using a CA 1-7 probe following the SRU guidelines. 3 measurements were obtained using a 2-D-SWE method. The IQR/M was 22% suggesting a quality data set. TECHNICAL QUALITY: Adequate. COMPARISON: Comparison is made with prior examination done earlier in the day. FINDINGS: Liver: There is evidence of hepatomegaly and fatty infiltration of the liver. Median liver stiffness measured 9.3 kPa. US/Abdomen Limited IMPRESSION: Liver stiffness measures 9.3 kPa compatible with F3 Metavir score. Electronically Signed: Clem Ying MD at 10:31 EST , ROS General General: Yes weight change and fatigue; No appetite, colon cancer, breast cancer or weakness HEENT HEENT: No difficulty swallowing, eye injury, eye surgery, swollen glands or hoarseness Endo Endocrine: Yes diabetes mellitus; No thyroid disease, thyroid cancer, Hair loss, heat intolerance or cold intolerance Skin Skin: No rash or changing moles Musc Musculoskeletal: Yes back problems; No arthritis, rheumatoid arthritis, gout or joint pain Cardio Cardiovascular: Yes high blood pressure; No murmur, pacemaker, heart disease, atrial fibrillation, heart attack, heart stent, palpitations, shortness of breat with exertion or chest pain Psych Psychiatric: No depression, anxiety or hearing voices Resp Respiratory: No shortness of breath, Yes sleep apnea, Yes cough, No COPD, No asthma, No emphysema and No wheezing Gastro Gastrointestinal: Yes abdominal pain, Yes nausea or vomiting, Yes diarrhea, Yes constipation, No blood in stool, Yes acid reflux, No hemorrhoids, No ulcers, Yes gallbladder problem and No black,tarry stools Silvio Hematologic: No blood thinners, No blood disorders, No bleeding, No anemia and No blood clots Neuro Neurologic: No system reviewed and no additional complaints, except as documented, No as per HPI, No abnormal gait, No abnormal hearing, No abnormal movements, No abnormal speech, No behavioral changes, No burning sensations, No confusion, No convulsions, No disequilibrium, No dizziness, No localized weakness, No frequent falls, No headache(s), No lack of coordination, No loss of vision, No memory loss, No numbness, No other visual disturbances, No radicular pain, No restless legs, No sensory deficit, No syncope, No tingling, No tremor(s), No weakness and No other Exam Const General: cooperative, comfortable and no acute distress Nutritional Appearance: average body habitus Orientation: alert and awake [facility] Head: normal to inspection Eyes General: appearance normal, both eyes and all related structures Chest Chest palpation & inspection: normal inspection of the chest Resp Effort & Inspection: normal respiratory effort Percussion: percussion normal Cardio Rate: regular rate Rhythm: regular rhythm GI Other: Soft, nontender, overweight, no hepatosplenomegaly, normal bowel sounds Musc Cervical Spine: normal cervical lordosis Skin General: no rashes or lesions noted Neuro General: patient alert and patient awake Extrem General: no calf tenderness Psych Appearance: grossly normal Assessment and Plan Assessment and Plan (1) Change in stool: Status: Acute (2) Nausea: Status: Acute (3) Abdominal pain: Status: Acute Qualifiers: Abdominal location: right upper quadrant Qualified Code(s): R10.11 - Right upper quadrant pain (4) Abnormal abdominal ultrasound: Status: Acute Orders: Orders: Colonoscopy Today R19.5 EGD Today R19.5 CBC W/Diff, Automated Today R19.5 Plan - Dr. Qamar Shepard MD: 46-year-old gentleman with complexity of issues. I have personally reviewed his right upper quadrant ultrasound and the item that is discussed is a 4 mm gallstone does not seemingly make sense. Is in the exact same location as the previous study. It appears to be adherent to the wall. It would be odd to have 1 solitary gallstone. Not clear whether this is adenomyosis or a polyp. It is not clear that it is causing the etiology of the patient's symptoms. He claims that after eating particularly fatty meal he can literally feel a grinding motor type sensation within the right upper quadrant. Claims he has had more nausea burping and belching recently. The weight loss was mostly voluntary. Claims that he has had manufacturing technology professor pale-colored stools. With all of that in mind I recommend to him that we do an upper and lower endoscopy looking for source of this pain. He is now evolving into but having more right-sided pain epigastric pain even left upper quadrant pain. Is complaining of constipation and a change in the appearance of his stool. Is complaining of increased upper GI symptoms as well. I propose a combined upper and lower endoscopy. I propose that we obtain a complete metabolic profile and a CBC. Pending these results we will then make further recommendations. The patient seems to have biliary dysfunction at least based upon the hepatobiliary scan. I have discussed with him potential recommendations for laparoscopic cholecystectomy selective cholangiography. I have instructed him however that that gives us about a 60% chance of improvement. He has had an opportunity to ask and have questions answered. He is very much interested in pursuing his discomforts at this time. I appreciate the opportunity of assisting with the surgical care. Copy: Dr. Angel Shepard, M.D., F.A.C.S Assessment and Plan Assessment and Plan (1) Biliary dyskinesia: Status: Acute Plan - Dr. Qamar hSepard MD: Findings seemingly consistent with biliary dyskinesia. The form of a solitary finding on gallbladder ultrasound of unclear etiology. Although it is described as a solitary gallstone that is less clear to me. He has diminished ejection fraction on hepatobiliary scan. He has steatosis. Discussed treatment options with him I described a laparoscopic cholecystectomy with selective cholangiography. He is aware of technique, benefit, risk, alternatives. Depending upon the appearance of his liver might consider Cristofer-Cut needle core biopsy at the same setting. He has had an opportunity to ask and have questions answered. He is aware that there are no guarantees of success. He is aware that he may still have right upper quadrant pain subsequent to the cholecystectomy. He would like to schedule and proceed as noted. Copy: Dr. Angel Shepard M.D., F.A.C.S. I have re-examined the patient. There are no clinical changes since date of exam.
--- NOTE | 2021-11-25 10:09 | EX.PCM.DISCH ---
Discharge Instructions Procedure General Surgery Diet Discharge Diet: Light diet - advance as tolerated (if you have questions about your diet instructions, please talk to you doctor.) Activity Discharge Activity: May Not Drive (for 3-5 days or while taking narcotic pain medicine.) May shower in (days): 1 Lifting Restrictions: 10 pounds Dressing / Incision Call your doctor if your incision/area has: Continuous Slow Oozing, Sudden Increased Bleeding, Increased Pain/ Swelling, Increased Redness and Foul Smelling Discharge Call your doctor if you observe: Fever of 101 or Higher Suture Line Care: Avoid Pulling/Pushing and Avoid Pinching/Bending Additional Dressing/Incision Instructions:: Change or remove dressing in 4 days. Leave steri-strips in place for 1 week. Follow Up Care Please Follow Up With: Qamar Shepard MD When: Call [phone] to make an appointment to be seen in about 10 days. Test Results: Test results from this visit will be discussed in further detail at your follow-up appointment, if applicable. Discharge Plan Admission Attending Provider: Qamar Shepard Primary Care Provider: Angel Pang Chi Discharge Orders/Prescriptions Prescriptions: No Action omega-3 fatty acids [Fish Oil Concentrate] 1,000 mg capsule 1,000 mg PO BID RF: 0 losartan-hydrochlorothiazide 100-25 mg tablet 1 tab PO DAILY RF: 0 pantoprazole 40 mg tablet,delayed release (DR/EC) 40 mg PO DAILY RF: 0 simvastatin 40 mg tablet 40 mg PO DAILY RF: 0 multivitamin Tablet 1 tab PO DAILY RF: 0 metformin 1,000 mg tablet 500 mg PO BIDCM RF: 0 Probiotic 10 billion cell Capsule 10,000 mmu cells PO BID RF: 0 Red Beet 1 tab PO/SL DAILY RF: 0
--- NOTE | 2021-11-25 10:25 | RAD_ITS ---
INDICATION: PAIN EXAMINATION/TECHNIQUE: Intraoperative fluoroscopic cholangiogram. Intraoperative cine clip presented for evaluation. Total Fluoroscopic Time: 14.7 seconds total AND number of Fluoroscopic Images: 1 intraoperative cine clip was submitted for assessment. OR Radiation dosage index: 25.09 mGy COMPARISON: None. FINDINGS: Intraoperative fluoroscopic cine clip was submitted for assessment. A catheter appears to cannulate the cystic duct. Contrast is subsequently injected into the biliary tree. No filling defects are identified. There is no biliary ductal dilatation. There is free passage into the duodenum. Gallbladder is not visualized. RAD/Cholangiogram/ O R,Initial IMPRESSION: Unremarkable intraoperative cholangiogram. Please see intraoperative findings for further details. Electronically Signed: Richard Estes, at 14:01 EDT ,
[2021-11-25] MEDS: Cefazolin 2 GM in 0.9% Normal Saline 100 ML IV (10:44)
[2021-11-25] MEDS: Bupivacaine Mpf 0.5% 30 ML VIAL (11:02)
--- NOTE | 2021-11-25 11:49 | PCM.OPRPT ---
Problems Associated Problem List Diagnoses (1) Biliary dyskinesia: Report of Operation Date of Procedure: 11/25/21 Pre-Operative Diagnosis: bILIARY DYSKINESIA Post-Operative Diagnosis: Chronic cholecystitis cholelithiasis Surgery/Procedure Performed:: Laparoscopic cholecystectomy with cholangiograms Description of Surgical Findings:: Timeout informed consent was obtained. 46-year-old gentleman was taken to the operating placed supine table underwent general endotracheal intubation esthesia. Ancef 2 g were given intravenously. The abdomen sterilely prepped and draped. 0.5% Marcaine was used as a local anesthetic. A total of 30 cc was used. Skin sites were preanesthetized. A supraumbilical vertical incision was created holding sutures of 0 Vicryl placed varies needle inserted saline drop test performed the abdomen was insufflated with CO2 to a pressure of 10 mmHg pressure. 10 mm trocar inserted. 10 mm laparoscope inserted. No evidence of any trocar injuries under direct visualization 5 mm ports were placed in the epigastric mid abdomen and right upper quadrant. The gallbladder was distracted and blunt dissection was instituted at the infundibulum until clearly the cystic duct and cystic artery were identified and the critical view achieved. A posterior cystic artery was clipped with a Hem-o-ervin clip. Hem-o-ervin clip was placed on the cystic duct stump and incision made in the cystic duct and through a 14-gauge Angiocath cholangiogram catheter was inserted. Fluoroscopically controlled cholangiograms were obtained demonstrating normal ductal anatomy and free flow into the small bowel. The cholangiogram catheter was removed and an additional Hem-o-ervin clip was placed on the cystic duct stump. The main cystic artery was then clipped proximally and distally prior to transecting it. The gallbladder was dissected free from the liver bed using electrocautery. A single Hem-o-ervin clip was further utilized. Hemostasis was nicely intact. There was no spillage. The gallbladder was placed in a retrieval bag. The right upper quadrant was irrigated aspirated free of excess fluid. The gallbladder is exited at the umbilicus. The remaining trochars removed after the CO2 was allowed to escape through an antiviral valve. The fascia at the umbilicus was approximated with a running 0 Vicryl suture. Skin edges were approximated interrupted 4 Monocryl subdermal stitches. Steri-Strips Telfa OpSite dressings applied. Sponge and instrument and needle counts were reported to the surgeon to be correct. Specimens gallbladder. Drains none. Blood loss minimal. The patient was taken to the recovery area in satisfactory addition without apparent complication Qamar Shepard M.D., F.A.C.S. Surgeon: Qamar Shepard Type of Anesthesia: General and Local
[2021-11-25] MEDS: HYDROcodone Bitartrate/Apap 5/325 Tablet PO (13:55)
== END 2021-11-25 23:59 | disposition home or self-care (01) ==
LOC: SDC 08:27 → AC 08:27
PROVIDERS: PCP Family Medicine Geriatric Medicine; Referring Provider Surgery; Visit Provider Surgery
PROC: (CPT 47610; principal; 2021-11-25 10:05)
DX: K80.10 Calculus of gallbladder with chronic cholecystitis without obstruction (principal); E11.9 Type 2 diabetes mellitus without complications; I10 Essential (primary) hypertension; E78.2 Mixed hyperlipidemia; Z20.822 Contact with and (suspected) exposure to COVID-19; K21.9 Gastro-esophageal reflux disease without esophagitis; R16.0 Hepatomegaly, not elsewhere classified; K76.0 Fatty (change of) liver, not elsewhere classified; G47.30 Sleep apnea, unspecified; Z79.84 Long term (current) use of oral hypoglycemic drugs; Z79.899 Other long term (current) drug therapy; Z87.891 Personal history of nicotine dependence; Z86.73 Personal history of transient ischemic attack (TIA), and cerebral infarction without residual deficits
CPT/HCPCS: 47563; 00790; 74300; 76000; 82962; 87426; 88304; 93005; J7120; J2405

== ENCOUNTER → 2022-02-19 | Outpatient (CLI) | payer OTHER, SELFPAY ==
[2022-02-19 12:30] LABS: Absolute Lymphocyte Count 1.56 X10^3/uL (0.83-4.51); Absolute Neutrophil Count 2.3 X10^3/uL (2.0-7.7); Basophil# 0.02 X10^3/uL; Basophil% 0.4 % (0-1); Eosinophil# 0.23 X10^3/uL; Eosinophils% 5.1 % (0-5); Hematocrit 43.3 % (40-54); Hemoglobin 14.5 g/dL (13.0-16.5); Lymphocyte # 1.56 X10^3/ul (0.83-4.51); Lymphocyte % 34.7 % (19-41); Mean Corp Hgb Conc 33.5 g/dL (32-36); Mean Corpuscular Hgb 27.9 pg (27.0-32.0); Mean Corpuscular Volume 83.4 fL (80-94); Mean Platelet Vol. 9.6 fl (6.2-12.0); Monocyte# 0.34 X10^3/uL; Monocyte% 7.6 % (0-10); NRBC Flagged by Analyzer 0 % (0-5); Neutrophil # 2.34 X10^3/uL (2.7-7.7); Platelet Count 220 K/mm3 (150-450); RBC Distribution Width CV 11.9 % (11.6-14.6); RBC Distribution Width SD 36.1 fl (35.1-43.9); Red Blood Count 5.19 M/mm3 (4.6-6.2); White Blood Count 4.5 K/mm3 (4.4-11.0)
[2022-02-19 12:56] LABS: ALB/GLOB Ratio 1.1 RATIO (0.9-2.4); AST(SGOT) 20 U/L (15-37); Alanine Aminotransfer ALT/SGPT 39 U/L (16-61); Albumin, Serum 3.9 g/dL (3.2-5.0); Alkaline Phosphatase 62 U/L (45-117); Anion Gap 4 (5-15); BUN 15 mg/dL (7-18); BUN/Creat Ratio 17.8 RATIO (10-20); Calcium,Total 9.1 mg/dL (8.5-10.1); Chloride 104 mmol/L (98-107); Creatinine, Serum 0.84 mg/dL (0.70-1.30); EST Glomerular Filtration Rate 105 mL/min (>60); Est Glom Filt Rate - Afr Amer 126 mL/min (>60); Globulin 3.6 g/dL (2.2-4.2); Glucose 142 mg/dL (74-106); Potassium 3.7 mmol/L (3.5-5.1); Protein, Total 7.5 g/dL (6.4-8.2); Sodium Level 137 mmol/L (136-145); Thyroid Stim Hormone (TSH) 1.43 uIU/mL (0.358-3.74)
== END | disposition home or self-care (01) ==
LOC: POLAB3 10:02
PROVIDERS: PCP Family Medicine Geriatric Medicine; Visit Provider Family Medicine Geriatric Medicine
DX: I10 Essential (primary) hypertension (principal)
CPT/HCPCS: 36415; 80053; 84443; 85025

== ENCOUNTER 2022-04-10 19:36 | Emergency (ER) | payer OTHER, SELFPAY ==
[2022-04-10 19:37] VITALS: BP 152/88; PULSE 88; RESP 16; TEMP 36.6; O2SAT 98; BMI 34.7
--- NOTE | 2022-04-10 19:49 | EX.ED.DYSGE1 ---
HPI History of Present Illness Chief Complaint: Foreign Body Informant: patient Narrative Narrative: Presents for concerns of stuck chicken bone. Ate chicken quarter around 6 PM took a big bite, he did not chew fully when he swallowed felt irritation and concerns of a bone. Since then has eaten bread and water which is gone down. Denies vomiting. States when he talks he does feel irritation there is no coughing episodes no trouble breathing. No history of similar. Prior similar symptoms: No PFSH PFSH Medical History Alcohol use Back pain Change in stool Cholelithiasis Chronic cholecystitis Chronic cholecystitis with calculus Chronic cough CPAP (continuous positive airway pressure) dependence Diabetes mellitus Essential hypertension, benign Former smoker Gastric reflux High cholesterol History of pain when walking History of steroid therapy History of stress test Hyperlipidemia, mixed Hypertension Leg cramps Sleep apnea TIA (transient ischemic attack) Wears dentures Home Medications losartan 100 mg-hydrochlorothiazide 25 mg tablet 1 tab PO DAILY 10/07/20 [History Last Taken 11/25/21] omega-3 fatty acids 1,000 mg capsule (Fish Oil Concentrate) 1,000 mg PO BID 10/07/20 [History Last Taken Unknown] metformin 1,000 mg tablet 500 mg PO BIDCM 10/23/21 [History Last Taken 11/25/21] multivitamin 1 tab PO DAILY 10/23/21 [History Last Taken Unknown] pantoprazole 40 mg tablet,delayed release 40 mg PO DAILY 10/23/21 [History Last Taken Unknown] simvastatin 40 mg tablet 40 mg PO DAILY 10/23/21 [History Last Taken Unknown] Lactobacillus acidophilus 10 billion cell capsule (Probiotic) 10,000 mmu cells PO BID 10/28/21 [History Last Taken Unknown] Red Beet 1 tab PO/SL DAILY 10/28/21 [History Last Taken Unknown] hydrocodone-acetaminophen 5-325mg 5mg-325mg 1 tab PO Q6H PRN pain 2 days #5 tabs 11/25/21 [Rx Last Taken Unknown] lidocaine HCl 2 % mucosal solution (Lidocaine Viscous) 5 ml PO Q6H PRN throat pain #100 mL 04/10/22 [Rx Last Taken Unknown] Allergy/AdvReac Type Severity Reaction Status Date / Time No Known Allergies Allergy Verified 04/10/22 19:36 Family History Father Diabetes Heart disease Hypertension Kidney disease High cholesterol Brother Kidney disease Surgical History History of colonoscopy (~10/2021) History of esophagogastroduodenoscopy (EGD) (~10/2021) History of laparoscopic cholecystectomy Hx of tooth extraction s/p anal fistulotomy Social History Smoking Status: Former smoker alcohol intake: current substance use type: does not use ROS ROS ED Constitutional Constitutional ED: Denies chills, fever(s) or sweats Eyes Eyes: Denies change in vision ENT ENT ED: Reports sore throat; Denies dysphagia Cardiovascular Cardiovascular: Denies chest pain, leg edema, palpitations or racing heartbeat Respiratory/Chest Respiratory/Chest: Denies cough, dyspnea or dyspnea on exertion Gastrointestinal Gastrointestinal: Denies abdominal pain, diarrhea, nausea or vomiting Genitourinary Genitourinary ED: Denies dysuria, hematuria or urinary frequency Musculoskeletal Musculoskeletal: Denies back pain, extremity pain or neck pain Integumentary Denies rash or wounds Neurologic Neurologic: Denies headache(s), paresthesias or weakness EXAM Physical Exam Const Vital Signs: 04/10/22 19:37 04/10/22 19:41 04/10/22 20:20 Temperature 97.8 F Temperature Source Temporal Pulse Rate 88 78 Respiratory Rate 16 18 Respiratory Effort Normal Blood Pressure 152/88 H 129/78 H Blood Pressure Mean 109 95 Pulse Ox 98 99 Oxygen Delivery Method Room Air Room Air Positive well nourished and well developed General Appearance ED: well developed and NAD HEENT Reports moist mucous membranes HEENT Narrative: Posterior pharynx patent no stridor no irritation noted. normocephalic and atraumatic Eyes PERRL, EOMs intact bilaterally and conjunctivae normal General Eye ED: Yes normal appearance of both eyes Neck no lymphadenopathy and supple General: Negative for tenderness Chest Wall Chest: Negative for tenderness Resp normal respiratory effort and normal air movement Effort and Inspection: symmetric chest movement; Negative for respiratory distress Cardio regular rate, regular rhythm and no murmurs Peripheral Pulses: pulses 2+ throughout GI normal to inspection, nondistended, normoactive bowel sounds and non-tender Palpation: Negative for guarding or rebound tenderness present Back/Spine no CVA tenderness and no thoracic nor lumbar tenderness Extremity normal to inspection General Extremety ED: Negative for edema or tenderness General Extremity: Negative for edema Neuro oriented x3 and no sensory deficits noted Sensorium / Orientation: awake and alert Skin no rashes or lesions noted and no wounds MDM MDM MDM Narrative Medical decision making narrative: Patient airway patent has swallowed bread and fluids since incident. Therefore lower suspicion for obstruction. Concerns more for irritation and esophageal lining with his throat sensation. He has no airway compromise. Given GI cocktail with improvement of symptoms. Discussed soft foods and popsicles. Viscous lidocaine use as needed GI follow-up. All questions were answered. Discharge Plan Triage Chief Complaint: Foreign Body ED Provider: Jorden Lopez Dx/Rx/DC Orders Clinical Impression: Pharyngitis, Foreign body sensation in throat, Diabetes mellitus Instructions: ED Esophageal Foreign Body, Resolved Prescriptions: New lidocaine HCl [Lidocaine Viscous] 2 % solution 5 ml PO Q6H PRN (Reason: throat pain) Qty: 100 0RF Rx Instructions: swish and swallow as needed. No Action omega-3 fatty acids [Fish Oil Concentrate] 1,000 mg capsule 1,000 mg PO BID losartan-hydrochlorothiazide 100-25 mg tablet 1 tab PO DAILY pantoprazole 40 mg tablet,delayed release (DR/EC) 40 mg PO DAILY simvastatin 40 mg tablet 40 mg PO DAILY multivitamin Tablet 1 tab PO DAILY metformin 1,000 mg tablet 500 mg PO BIDCM Probiotic 10 billion cell Capsule 10,000 mmu cells PO BID Red Beet 1 tab PO/SL DAILY hydrocodone-acetaminophen 5-325 mg tablet 1 tab PO Q6H PRN (Reason: pain) 2 Days Qty: 5 0RF Primary Care Provider: Angel Pang Chi Referrals: Tremayne Zimmer DO [Med Staff - Active Staff] - 1-2 Weeks Angel Pang Chi, MD [Primary Care Provider] - Disposition Disposition: Home, Self Care Discharge Date/Time: 04/10/22 20:22
[2022-04-10] MEDS: Mag Hydrox/Al Hydrox/Simeth 30 ML UDC PO (20:00)
[2022-04-10 20:20] VITALS: BP 129/78; PULSE 78; RESP 18; O2SAT 99
== END 2022-04-10 20:22 | disposition home or self-care (01) ==
PROVIDERS: Emergency Provider Emergency Medicine; PCP Family Medicine Geriatric Medicine; Visit Provider Emergency Medicine
DX: J02.9 Acute pharyngitis, unspecified (principal); E11.9 Type 2 diabetes mellitus without complications; T17.208A Unspecified foreign body in pharynx causing other injury, initial encounter; G47.30 Sleep apnea, unspecified; Z86.73 Personal history of transient ischemic attack (TIA), and cerebral infarction without residual deficits; Z87.891 Personal history of nicotine dependence; X58.XXXA Exposure to other specified factors, initial encounter
CPT/HCPCS: 99283

== ENCOUNTER → 2022-05-27 | Outpatient (CLI) | payer OTHER, SELFPAY ==
[2022-05-27 17:05] LABS: Absolute Lymphocyte Count 1.28 X10^3/uL (0.83-4.51); Absolute Neutrophil Count 3.5 X10^3/uL (2.0-7.7); Basophil# 0.03 X10^3/uL; Basophil% 0.6 % (0-1); Eosinophil# 0.14 X10^3/uL; Eosinophils% 2.6 % (0-5); Hematocrit 42.3 % (40-54); Hemoglobin 14.5 g/dL (13.0-16.5); Lymphocyte # 1.28 X10^3/ul (0.83-4.51); Lymphocyte % 23.8 % (19-41); Mean Corp Hgb Conc 34.3 g/dL (32-36); Mean Corpuscular Volume 81.8 fL (80-94); Mean Platelet Vol. 9.7 fl (6.2-12.0); Monocyte# 0.39 X10^3/uL; Monocyte% 7.2 % (0-10); NRBC Flagged by Analyzer 0 % (0-5); Neutrophil # 3.53 X10^3/uL (2.7-7.7); Neutrophil % 65.6 % (47-70); Platelet Count 251 K/mm3 (150-450); RBC Distribution Width SD 35.9 fl (35.1-43.9); Red Blood Count 5.17 M/mm3 (4.6-6.2); White Blood Count 5.4 K/mm3 (4.4-11.0)
--- NOTE | 2022-05-27 17:05 | RAD_ITS ---
STUDY: X-RAY - ABDOMEN/PELVIS REASON FOR EXAM: Male, 47 years old. NAUSEA and gassy. TECHNIQUE: AP supine and upright views of the abdomen and pelvis. COMPARISON: None. FINDINGS: Normal visualized lung bases. There is a moderate amount of colonic fecal material. There is no demonstrated free abdominal air. The visualized liver, spleen and kidneys are grossly normal in size and morphology. Normal soft tissue structures. There are degenerative changes of the visualized lumbar spine. RAD/Abd Inc Decub and/or Erect IMPRESSION: Moderate amount of fecal material is seen in the colon. Electronically Signed: Clem Ying MD at 12:29 EDT ,
[2022-05-27 17:43] LABS: AST(SGOT) 20 U/L (15-37); Alanine Aminotransfer ALT/SGPT 41 U/L (16-61); Alkaline Phosphatase 69 U/L (45-117); Anion Gap 7 (5-15); BUN 17 mg/dL (7-18); BUN/Creat Ratio 17.6 RATIO (10-20); Calcium,Total 9.3 mg/dL (8.5-10.1); Chloride 101 mmol/L (98-107); Creatinine, Serum 0.97 mg/dL (0.70-1.30); EST Glomerular Filtration Rate 89 mL/min (>60); Est Glom Filt Rate - Afr Amer 108 mL/min (>60); Glucose 179 mg/dL (74-106); Potassium 3.8 mmol/L (3.5-5.1); Sodium Level 137 mmol/L (136-145); Thyroid Stim Hormone (TSH) 2.01 uIU/mL (0.358-3.74)
== END | disposition home or self-care (01) ==
PROVIDERS: PCP Family Medicine Geriatric Medicine; Visit Provider Family Medicine Geriatric Medicine
DX: I10 Essential (primary) hypertension (principal); E11.65 Type 2 diabetes mellitus with hyperglycemia; R11.0 Nausea
CPT/HCPCS: 36415; 74019; 80053; 84443; 85025

== ENCOUNTER → 2022-08-09 | Outpatient (CLI) | payer OTHER, SELFPAY ==
--- NOTE | 2022-08-09 12:12 | RAD_ITS ---
INDICATION: Neck pain. EXAMINATION/TECHNIQUE: X-RAY - XR Spine Cervical 4 or 5 Views COMPARISON: None. FINDINGS: VERTEBRAE: Preserved vertebral body height. No fracture. No spondylolisthesis. There is straightening of the normal cervical lordosis. There is multilevel facet joint arthropathy, worse on the left than the right. DISCS: Disc spaces are maintained. NECK SOFT TISSUES: No prevertebral soft tissue widening. LUNG APICES: Clear. RAD/Cerv Spine 4 or 5 Views IMPRESSION: No evidence of acute fracture or spondylolisthesis. Electronically Signed: Terrie Pinzon MD at 7:54 EST ,
== END | disposition home or self-care (01) ==
PROVIDERS: PCP Family Medicine Geriatric Medicine; Visit Provider Family Medicine Geriatric Medicine
DX: M54.2 Cervicalgia (principal)
CPT/HCPCS: 72050

== ENCOUNTER 2022-08-16 11:04 | Emergency (ER) | payer OTHER, SELFPAY ==
[2022-08-16 11:07] VITALS: BP 156/85; PULSE 95; RESP 12; TEMP 37; O2SAT 97; BMI 37.0
--- NOTE | 2022-08-16 11:32 | EKG12_ITS ---
Test Reason : PALP Blood Pressure : / mmHG Vent. Rate : 083 BPM Atrial Rate : 083 BPM P-R Int : 158 ms QRS Dur : 098 ms QT Int : 348 ms P-R-T Axes : 050 -25 052 degrees QTc Int : 408 ms Normal sinus rhythm Leftward axis Poor R wave progression Confirmed by MAJO ORTEGA, KOBY ([id number]), city editor YASMINE RIGGINS ([id number]) on 08/18/2022 8:51:15 AM Referred By: PL Confirmed By:KOBY KASPER MD
--- NOTE | 2022-08-16 11:43 | RAD_ITS ---
STUDY: X-RAY CHEST REASON FOR EXAM: Male, 47 years old. Chest pain TECHNIQUE: Single AP portable view of the chest. COMPARISON: Comparison is made with prior study dated 01/08/2017. FINDINGS: EKG collections are seen. The lungs are clear and expanded. Scattered calcified granulomas. There is no demonstrated pleural abnormality. Normal size heart. Normal mediastinum and lokesh. There is prominence of the pulmonary hilar arteries without peripheral pulmonary vascular congestion, suggesting pulmonary hypertension. Normal visualized aortic arch and descending thoracic aorta. There are diffuse degenerative changes of the visualized thoracic spine. Normal visualized ribs, clavicles, and shoulders. There is no demonstrated abnormality of the visualized soft tissue structures of the upper abdomen. RAD/Chest 1 View (Portable) IMPRESSION: Prominence of the central pulmonary arteries. Electronically Signed: Clem Ying MD at 12:10 EST ,
[2022-08-16 11:47] LABS: Absolute Lymphocyte Count 1.51 X10^3/uL (0.83-4.51); Absolute Neutrophil Count 4.8 X10^3/uL (2.0-7.7); Basophil# 0.01 X10^3/uL; Basophil% 0.1 % (0-1); Eosinophil# 0.16 X10^3/uL; Eosinophils% 2.3 % (0-5); Hematocrit 44.7 % (40-54); Hemoglobin 15.4 g/dL (13.0-16.5); Lymphocyte # 1.51 X10^3/ul (0.83-4.51); Lymphocyte % 21.3 % (19-41); Mean Corp Hgb Conc 34.5 g/dL (32-36); Mean Corpuscular Hgb 28.6 pg (27.0-32.0); Mean Corpuscular Volume 82.9 fL (80-94); Mean Platelet Vol. 9.5 fl (6.2-12.0); Monocyte# 0.56 X10^3/uL; Monocyte% 7.9 % (0-10); NRBC Flagged by Analyzer 0 % (0-5); Neutrophil # 4.79 X10^3/uL (2.7-7.7); Neutrophil % 67.6 % (47-70); Platelet Count 225 K/mm3 (150-450); RBC Distribution Width CV 12.1 % (11.6-14.6); RBC Distribution Width SD 36.7 fl (35.1-43.9); Red Blood Count 5.39 M/mm3 (4.6-6.2); White Blood Count 7.1 K/mm3 (4.4-11.0)
[2022-08-16 11:59] LABS: Anion Gap 6 (5-15); BUN 25 mg/dL (7-18); BUN/Creat Ratio 29.7 RATIO (10-20); Calcium,Total 9.7 mg/dL (8.5-10.1); Chloride 104 mmol/L (98-107); Creatinine, Serum 0.84 mg/dL (0.70-1.30); EST Glomerular Filtration Rate 105 mL/min (>60); Est Glom Filt Rate - Afr Amer 127 mL/min (>60); Estimated Creatinine Clearance 114.67 ml/min; Glucose 145 mg/dL (74-106); Potassium 3.5 mmol/L (3.5-5.1); Sodium Level 137 mmol/L (136-145); Troponin-I HS 6 pg/mL (3.0-78.0)
--- NOTE | 2022-08-16 12:28 | EDS_ITS ---
HPI History of Present Illness Chief Complaint: Palpitations Informant: patient Onset/Context/Timing Onset: Today and Hours Activity at onset: sudden Timing: Intermittent Quality: Positive for Heaviness Location: Substernal, Right Chest and Left Chest Worsened By: Movement of Torso Relieved By: Nothing Associated Symptoms: Positive for Nausea, Diaphoresis, Cough, Lightheadedness, Acid Reflux and Palpitations; Negative for Vomiting, Dyspnea or Fever Narrative Narrative: Patient presents with palpitations and chest pain that began today. 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 Patient states this occurred just a couple hours prior to arrival. Patient admits to some heaviness across his chest when this happened. Patient states his symptoms have been intermittent since that time. Patient states sometimes it is worse when he moves his torso. Patient states nothing seems to help with it. Patient admits to some nausea but denies any vomiting. Patient admits to some diaphoresis. Patient admits to a cough but denies any shortness of breath or fevers. Patient admits to some lightheadedness. CVD Risk Factors: Positive for Hypertension, Diabetes and Hypercholesterolemia; Negative for Family History 1' </=55 or Smoking PE Risk Factors: Negative for Recent Travel/Surgery, Recent Immobilization, Prior DVT or PE, Cancer or OCP + Smoking + >/=35 PFSH PFS Medical History Alcohol use Back pain Change in stool Cholelithiasis Chronic cholecystitis Chronic cholecystitis with calculus Chronic cough CPAP (continuous positive airway pressure) dependence Diabetes mellitus Essential hypertension, benign Former smoker Gastric reflux High cholesterol History of pain when walking History of steroid therapy History of stress test Hyperlipidemia, mixed Hypertension Leg cramps Sleep apnea TIA (transient ischemic attack) Wears dentures Home Medications losartan 100 mg-hydrochlorothiazide 25 mg tablet 1 tab PO DAILY 10/07/20 [History Last Taken 11/25/21] omega-3 fatty acids 1,000 mg capsule (Fish Oil Concentrate) 1,000 mg PO BID 10/07/20 [History Last Taken Unknown] metformin 1,000 mg tablet 500 mg PO BIDCM 10/23/21 [History Last Taken 11/25/21] multivitamin 1 tab PO DAILY 10/23/21 [History Last Taken Unknown] pantoprazole 40 mg tablet,delayed release 40 mg PO DAILY 10/23/21 [History Last Taken Unknown] simvastatin 40 mg tablet 40 mg PO DAILY 10/23/21 [History Last Taken Unknown] Lactobacillus acidophilus 10 billion cell capsule (Probiotic) 10,000 mmu cells PO BID 10/28/21 [History Last Taken Unknown] Red Beet 1 tab PO/SL DAILY 10/28/21 [History Last Taken Unknown] Allergy/AdvReac Type Severity Reaction Status Date / Time No Known Allergies Allergy Verified 08/16/22 11:06 Family History Father Diabetes Heart disease Hypertension Kidney disease High cholesterol Brother Kidney disease Surgical History History of colonoscopy (~10/2021) History of esophagogastroduodenoscopy (EGD) (~10/2021) History of laparoscopic cholecystectomy Hx of tooth extraction s/p anal fistulotomy Social History Smoking Status: Former smoker alcohol intake: current substance use type: does not use ROS ROS ED Constitutional Constitutional ED: Denies chills or fever(s) Eyes Eyes: Denies blurry vision or change in vision ENT ENT ED: Denies rhinorrhea or sore throat Cardiovascular Cardiovascular: Reports chest pain, palpitations and racing heartbeat Respiratory/Chest Respiratory/Chest: Reports cough; Denies dyspnea Gastrointestinal Gastrointestinal: Reports nausea; Denies abdominal pain or vomiting Genitourinary Genitourinary ED: Denies dysuria or hematuria Musculoskeletal Musculoskeletal: Reports back pain and neck pain Integumentary Denies abscess or rash Neurologic Neurologic: Reports headache(s); Denies weakness Allergic/Immunologic Allergic/Immunologic ED: Denies mouth swelling or urticaria EXAM Physical Exam Const Vital Signs: 08/16/22 11:07 08/16/22 11:32 08/16/22 13:04 Temperature 98.6 F Temperature Source Oral Pulse Rate 95 75 Respiratory Rate 12 16 Blood Pressure 156/85 H 135/84 H Blood Pressure Mean 108 101 Pulse Ox 97 95 Oxygen Delivery Method Room Air Room Air Room Air Positive well nourished, well developed and obese General Appearance ED: well developed and NAD Nutritional Appearance: obese HEENT normocephalic and atraumatic Eyes PERRL and EOMs intact bilaterally Neck supple and no JVD Chest Wall palpation of chest normal Resp normal respiratory effort and clear to auscultation bilaterally Effort and Inspection: Negative for respiratory distress Cardio regular rate, regular rhythm and no murmurs GI normal to inspection, nondistended, normoactive bowel sounds, soft to palpation, non-tender and non-distended Extremity normal to inspection General Extremety ED: Negative for edema or tenderness General Extremity: Negative for edema Neuro oriented x3, CN's II-XII intact bilaterally and no sensory deficits noted Sensorium / Orientation: awake and alert Motor Exam: strength 5/5 throughout Psych mental status grossly normal Heart Score History: Slightly/Non-Suspicious ECG: Normal Age: </= 45 years Risk Factors: >/= 3 Risk Factors or History of CAD Troponin: </= Normal Limit Score: 2 MDM MDM MDM Narrative Medical decision making narrative: Patient was given aspirin here. EKG was obtained. On my interpretation, it parviz wed a normal sinus rhythm with a rate of 83. [place] interval, QRS interval, and QTc intervals were all normal. [place] was normal. There are no acute ST or T wave changes. CBC was within normal limits. Basic metabolic profile showed a slightly elevated BUN of 25 and a glucose of 145. Anion gap was normal. High- sensitivity troponin was normal at 6. 2-hour repeat high-sensitivity troponin was normal at 6. Patient has no further chest pain. Patient has a HEART score of 2. Patient was advised that this is low risk for acute cardiac event. Patient was instructed to follow-up with his primary care physician in 5 to 7 days. Patient understood and was agreeable with the plan. All questions were answered. Lab Data Attestation: I reviewed the patient's lab results. Labs: Laboratory Results - last 24 hr 08/16/22 08/16/22 08/16/22 11:36 11:36 12:33 WBC 7.1 RBC 5.39 Hgb 15.4 Hct 44.7 MCV 82.9 MCH 28.6 MCHC 34.5 RDW Std Deviation 36.7 RDW Coeff of Gabby 12.1 Plt Count 225 MPV 9.5 Immature Gran % (Auto) 0.800 Neut % (Auto) 67.6 Lymph % (Auto) 21.3 Howell % (Auto) 7.9 Eos % (Auto) 2.3 Baso % (Auto) 0.1 Absolute Neuts (auto) 4.8 Absolute Lymphs (auto) 1.51 Nucleated RBC % 0 Sodium 137 Potassium 3.5 Chloride 104 Carbon Dioxide 27.0 Anion Gap 6 BUN 25 H Creatinine 0.84 Estim Creat Clear Calc 114.67 Est GFR (MDRD) Af Amer 127 Est GFR (MDRD) Non-Af 105 BUN/Creatinine Ratio 29.7 H Glucose 145 H Calcium 9.7 Troponin I High Sens 6 6 Radiography Chest X-Ray - ED: 1 View, Read by ED Physician, Read by Radiologist and No Acute Disease Diagnostic Testing: Clinical Impression(s) from Imaging Studies Chest X-Ray 08/16/22 11:43 IMPRESSION: Prominence of the central pulmonary arteries. Electronically Signed: Clem Ying MD at 12:10 EST , EKG Initial EKG: Attestation: I personally reviewed and interpreted this EKG as follows: Interpretation: Sinus Rhythm (83) and No Acute Injury Pattern Prior EKG tracings: available for review Prior: Unchanged (11/24/2021) Discharge Plan Triage Chief Complaint: Palpitations ED Provider: Ede Kelley Dx/Rx/DC Orders Clinical Impression: Chest pain, Heart palpitations Instructions: ED Chest Pain, Uncertain Cause, ED Palpitations Prescriptions: No Action omega-3 fatty acids [Fish Oil Concentrate] 1,000 mg capsule 1,000 mg PO BID losartan-hydrochlorothiazide 100-25 mg tablet 1 tab PO DAILY pantoprazole 40 mg tablet,delayed release (DR/EC) 40 mg PO DAILY simvastatin 40 mg tablet 40 mg PO DAILY multivitamin Tablet 1 tab PO DAILY metformin 1,000 mg tablet 500 mg PO BIDCM Probiotic 10 billion cell Capsule 10,000 mmu cells PO BID Red Beet 1 tab PO/SL DAILY Primary Care Provider: Angel Pang Chi Referrals: Angel Pang Chi, MD [Primary Care Provider] - 5-7 Days Disposition Disposition: Home, Self Care
[2022-08-16] MEDS: Aspirin 81 MG TAB.CHEW 324 MG PO (12:43)
[2022-08-16 12:56] LABS: Troponin-I HS 6 pg/mL (3.0-78.0)
[2022-08-16 13:04] VITALS: BP 135/84; PULSE 75; RESP 16; O2SAT 95
[2022-08-16 15:13] VITALS: RESP 20
[2022-08-17 11:24] LABS: ALB/GLOB Ratio 1.1 RATIO (0.9-2.4); AST(SGOT) 16 U/L (15-37); Alanine Aminotransfer ALT/SGPT 44 U/L (16-61); Albumin, Serum 3.9 g/dL (3.2-5.0); Alkaline Phosphatase 66 U/L (45-117); Globulin 3.7 g/dL (2.2-4.2); Protein, Total 7.6 g/dL (6.4-8.2); Thyroid Stim Hormone (TSH) 1.82 uIU/mL (0.358-3.74)
== END 2022-08-16 15:27 | disposition home or self-care (01) ==
PROVIDERS: Emergency Provider Emergency Medicine; PCP Family Medicine Geriatric Medicine; Visit Provider Emergency Medicine
DX: R07.9 Chest pain, unspecified (principal); E11.9 Type 2 diabetes mellitus without complications; R00.2 Palpitations; E78.00 Pure hypercholesterolemia, unspecified; I10 Essential (primary) hypertension; G47.30 Sleep apnea, unspecified; E66.9 Obesity, unspecified; K21.9 Gastro-esophageal reflux disease without esophagitis; Z86.73 Personal history of transient ischemic attack (TIA), and cerebral infarction without residual deficits; Z87.891 Personal history of nicotine dependence; Z79.899 Other long term (current) drug therapy; Z79.84 Long term (current) use of oral hypoglycemic drugs
CPT/HCPCS: 71045; 80048; 80053; 84443; 84484; 85025; 93005; 99285; A4216

== ENCOUNTER → 2022-11-16 | Outpatient (CLI) | payer OTHER, SELFPAY ==
--- NOTE | 2022-11-16 09:05 | STRESSREP ---
Stress Test Report Date: 11-16-2022 Procedure: Exercise tolerance test/imaging study Indications: Chest pain, shortness of breath/dyspnea Consent: Per the patient Procedure: The patient exercised on a Derik protocol for 9 minutes and 29 seconds completing Stage III and 29 seconds of Stage IV achieving a peak heart rate of 160 bpm (91% predicted maximal heart rate) with resting blood pressure of 122/84 mmHg and a peak blood pressure 206/78 mmHg and a peak MET capacity of 11 METs. The baseline ECG demonstrated normal sinus rhythm; poor R wave progression. The peak exercise ECG demonstrated somatic/motion artifact with no obvious ECG changes. There were no cardiac dysrhythmias pretest, during exercise, or recovery. The functional capacity was considered good. There was no complaint of chest discomfort during exercise or recovery. The examination was discontinued secondary to shortness of breath and leg fatigue. Impression: 1. Technically adequate (percent predicted maximal heart rate greater than 85%) exercise tolerance test 2. Peak exercise ECG with somatic/motion artifact with no obvious ECG changes 3. There were no cardiac dysrhythmias pretest, during exercise, or recovery This note was generated with [employer] software. It may contain incorrect words, spelling, and punctuation that were not noted in checking the note before signing.
== END | disposition home or self-care (01) ==
PROVIDERS: PCP Family Medicine Geriatric Medicine; Visit Provider Family Medicine Geriatric Medicine
DX: R07.9 Chest pain, unspecified (principal)
CPT/HCPCS: 93017

== ENCOUNTER → 2023-02-17 | Outpatient (CLI) | payer OTHER, SELFPAY ==
[2023-02-17 10:51] LABS: Absolute Lymphocyte Count 1.37 X10^3/uL (0.83-4.51); Absolute Neutrophil Count 2.1 X10^3/uL (2.0-7.7); Basophil# 0.02 X10^3/uL; Basophil% 0.5 % (0-1); Eosinophil# 0.19 X10^3/uL; Eosinophils% 4.5 % (0-5); Hematocrit 42.5 % (40-54); Hemoglobin 14.3 g/dL (13.0-16.5); Lymphocyte # 1.37 X10^3/ul (0.83-4.51); Lymphocyte % 32.6 % (19-41); Mean Corp Hgb Conc 33.6 g/dL (32-36); Mean Corpuscular Hgb 27.6 pg (27.0-32.0); Mean Corpuscular Volume 81.9 fL (80-94); Mean Platelet Vol. 9.7 fl (6.2-12.0); Monocyte% 11.9 % (0-10); NRBC Flagged by Analyzer 0 % (0-5); Neutrophil # 2.11 X10^3/uL (2.7-7.7); Neutrophil % 50.3 % (47-70); Platelet Count 207 K/mm3 (150-450); RBC Distribution Width CV 12.3 % (11.6-14.6); RBC Distribution Width SD 36.9 fl (35.1-43.9); Red Blood Count 5.19 M/mm3 (4.6-6.2); White Blood Count 4.2 K/mm3 (4.4-11.0)
[2023-02-17 11:37] LABS: ALB/GLOB Ratio 1.1 RATIO (0.9-2.4); AST(SGOT) 30 U/L (15-37); Alanine Aminotransfer ALT/SGPT 56 U/L (16-61); Alkaline Phosphatase 73 U/L (45-117); Anion Gap 1 (5-15); BUN 21 mg/dL (7-18); BUN/Creat Ratio 27.6 RATIO (10-20); Calcium,Total 8.6 mg/dL (8.5-10.1); Chloride 105 mmol/L (98-107); Creatinine, Serum 0.76 mg/dL (0.70-1.30); EST Glomerular Filtration Rate 117 mL/min (>60); Est Glom Filt Rate - Afr Amer 142 mL/min (>60); Globulin 3.7 g/dL (2.2-4.2); Glucose 149 mg/dL (74-106); Potassium 3.6 mmol/L (3.5-5.1); Protein, Total 7.7 g/dL (6.4-8.2); Sodium Level 135 mmol/L (136-145); Thyroid Stim Hormone (TSH) 2.22 uIU/mL (0.358-3.74)
== END | disposition home or self-care (01) ==
LOC: LAB 09:46
PROVIDERS: PCP Family Medicine Geriatric Medicine; Referring Provider Family Medicine Geriatric Medicine; Visit Provider Family Medicine Geriatric Medicine
DX: E11.65 Type 2 diabetes mellitus with hyperglycemia (principal); I10 Essential (primary) hypertension
CPT/HCPCS: 36415; 80053; 84443; 85025

== ENCOUNTER → 2023-08-17 | Outpatient (CLI) | payer OTHER, SELFPAY ==
--- NOTE | 2023-08-17 09:00 | RAD_ITS ---
STUDY: X-RAY - LUMBAR SPINE REASON FOR EXAM: Male, 48 years old. M54.30 TECHNIQUE: 4 view(s) of the lumbar spine were obtained. COMPARISON: None FINDINGS: Normal lumbar lordosis. 6 lumbar type vertebral bodies. Mild dextroscoliosis centered at L3/L4. There is a normal alignment of the vertebrae. There is multilevel endplate spondylosis of the lumbar vertebrae. There is multi-level degenerative disc disease with multi-level disc space narrowing. Facet hypertrophy in the lower lumbar spine. The soft tissue structures are unremarkable. RAD/Lumbar Spine 2 or 3 Views IMPRESSION: Mild dextroscoliosis with degenerative disc disease. MRI may be useful. Suspect 6 lumbar type vertebral bodies. Electronically Signed: Gm Childers MD at 18:51 EST ,
== END | disposition home or self-care (01) ==
PROVIDERS: PCP Family Medicine Geriatric Medicine; Referring Provider Podiatrist; Visit Provider Podiatrist
DX: M54.30 Sciatica, unspecified side (principal)
CPT/HCPCS: 72100

== ENCOUNTER → 2023-08-24 | Outpatient (CLI) | payer OTHER, SELFPAY ==
[2023-08-24 11:04] LABS: Absolute Lymphocyte Count 1.24 X10^3/uL (0.83-4.51); Absolute Neutrophil Count 2.2 X10^3/uL (2.0-7.7); Basophil# 0.03 X10^3/uL; Basophil% 0.8 % (0-1); Eosinophil# 0.16 X10^3/uL; Hematocrit 43.3 % (40-54); Hemoglobin 14.5 g/dL (13.0-16.5); Lymphocyte # 1.24 X10^3/ul (0.83-4.51); Lymphocyte % 31.2 % (19-41); Mean Corp Hgb Conc 33.5 g/dL (32-36); Mean Corpuscular Hgb 26.9 pg (27.0-32.0); Mean Corpuscular Volume 80.3 fL (80-94); Monocyte# 0.35 X10^3/uL; Monocyte% 8.8 % (0-10); NRBC Flagged by Analyzer 0 % (0-5); Neutrophil # 2.19 X10^3/uL (2.7-7.7); Neutrophil % 54.9 % (47-70); Platelet Count 229 K/mm3 (150-450); RBC Distribution Width CV 12.2 % (11.6-14.6); RBC Distribution Width SD 35.2 fl (35.1-43.9); Red Blood Count 5.39 M/mm3 (4.6-6.2)
[2023-08-24 11:58] LABS: AST(SGOT) 32 U/L (15-37); Alanine Aminotransfer ALT/SGPT 61 U/L (16-61); Albumin, Serum 3.9 g/dL (3.2-5.0); Alkaline Phosphatase 74 U/L (45-117); Anion Gap 7 (5-15); BUN 23 mg/dL (7-18); BUN/Creat Ratio 28.8 RATIO (10-20); Calcium,Total 8.7 mg/dL (8.5-10.1); Chloride 106 mmol/L (98-107); EST Glomerular Filtration Rate 110 mL/min (>60); Est Glom Filt Rate - Afr Amer 134 mL/min (>60); Globulin 3.8 g/dL (2.2-4.2); Glucose 209 mg/dL (74-106); Potassium 3.7 mmol/L (3.5-5.1); Protein, Total 7.7 g/dL (6.4-8.2); Sodium Level 139 mmol/L (136-145); Thyroid Stim Hormone (TSH) 1.63 uIU/mL (0.358-3.74)
== END | disposition home or self-care (01) ==
LOC: POLAB3 09:07
PROVIDERS: PCP Family Medicine Geriatric Medicine; Visit Provider Family Medicine Geriatric Medicine
DX: E11.65 Type 2 diabetes mellitus with hyperglycemia (principal); I10 Essential (primary) hypertension
CPT/HCPCS: 36415; 80053; 84443; 85025

== ENCOUNTER → 2023-08-26 | Outpatient (CLI) | payer OTHER, SELFPAY | END | disposition home or self-care (01) | LOC: PSN 07:59 | PROVIDERS: PCP Family Medicine Geriatric Medicine; Referring Provider Family Medicine Geriatric Medicine; Visit Provider Family Medicine Geriatric Medicine | DX: R68.83 Chills (without fever) (principal) | CPT/HCPCS: 87635; 87804; 87807; C9803 ==

== ENCOUNTER → 2023-09-02 | Outpatient (CLI) | payer OTHER, SELFPAY ==
--- NOTE | 2023-09-02 07:28 | US_ITS ---
STUDY: ABDOMINAL ULTRASOUND - RIGHT UPPER QUADRANT; ELASTOGRAPHY REASON FOR VISIT: Male, 48 years old. Hepatic fibrosis. TECHNIQUE: Ultrasound evaluation of the right upper quadrant was performed with real-time and static jonas-scale imaging. Point quantification shear wave elastography was performed ([employer]). TECHNICAL QUALITY: Adequate. COMPARISON: None. FINDINGS: Liver: The liver is enlarged and measures 22.3 cm. There is increased echogenicity consistent with fatty infiltration. The bile ducts are within normal limits. There is hepatic color flow. The direction of portal flow is hepatopetal. There is no demonstrated mass lesion. Median liver stiffness measured 7.7 kPa. Gallbladder: The patient is status post cholecystectomy. Common Bile Duct (C.B.D.): The common bile duct measures 3.6 mm. Pancreas: There is normal echogenicity of the visualized pancreas. There is no demonstrated pancreatic mass or cyst. Right Kidney: Normal size of the right kidney. The right kidney measures 13.7 cm x 6.4 cm x 4.7 cm. Normal renal cortex. The right cortex measures 1.5 cm. There is no demonstrated renal mass or cyst. There is no right hydronephrosis. US/ABD Limited w/ Elastography IMPRESSION: 1. Liver stiffness measures 7.7 kPa compatible with F2-F3 (Mild to moderate liver fibrosis) Metavir score. Electronically Signed: Clem Ying MD at 13:25 EST ,
== END | disposition home or self-care (01) ==
PROVIDERS: PCP Family Medicine Geriatric Medicine; Referring Provider Family Medicine Geriatric Medicine; Visit Provider Family Medicine Geriatric Medicine
DX: K74.00 Hepatic fibrosis, unspecified (principal)
CPT/HCPCS: 76705; 76981

== ENCOUNTER → 2023-11-25 | Outpatient (CLI) | payer OTHER, SELFPAY ==
--- OUTSIDE RECORDS SUMMARY | 2023-11-25 09:25 | XMS RPT_ITS | CCD ---
Author Name Unknown Address Formerly [facility] [address] [place] [id number] Organization [facility] Care Team Providers Care Skull Splitter Name Role Phone JENNIFER GOMES Primary Care Unavailable MIREYA, JENNIFER Consulting Unavailable JENNIFER GOMES Attending Unavailable JENNIFER GOMES Admitting Unavailable PROVIDER, UNKNOWN Consulting Unavailable PROVIDER, UNKNOWN Consulting Unavailable PROVIDER, UNKNOWN Consulting Unavailable JENNIFER GOMES Primary Care Unavailable MIREYA, JNENIFER Consulting Unavailable JENNIFER GOMES Attending Unavailable JENNIFER GOMES Admitting Unavailable PROVIDER, UNKNOWN Consulting Unavailable PROVIDER, UNKNOWN Consulting Unavailable PROVIDER, UNKNOWN Consulting Unavailable KSENIA MCCULLOUGH CNP Admitting Unavailable KSENIA MCCULLOUGH CNP Primary Care Unavailable KSENIA MCCULLOUGH CNP Attending Unavailable JENNIFER GOMES Consulting Unavailable PROVIDER, UNKNOWN Consulting Unavailable PROVIDER, UNKNOWN Consulting Unavailable PROVIDER, UNKNOWN Consulting Unavailable Problems Problem Classification Problem Date Documented Da te Episodic/Chronic Diabetes mellitus with complications (3 sources) Type 2 diabetes mellitus with hyperglycemia; Translations: [Type 2 diabetes mellitus with hyperglycemia] Onset: 06-26-2021 Chronic Malaise and fatigue (1 source) Other fatigue; Translations: [Other fatigue] Onset: 06-26-2021 Episodic Other screening for suspected conditions (not mental disorders or infectious disease) (1 source) Encounter for screening for lipoid disorders; Translations: [Encounter for screening for lipoid disorders] Onset: 06-26-2021 Episodic Results Test Name Value Interpretation Reference Range Facil ity Encounters Encounter Date Encounter Type Care Provider Facility Start: 06-26-2021 End: [facility]: [facility] End: 01-30-2021 ambulatory JENNIFER GOMES [facility] Start: 09-22-2020 End: 09-22-2020 ambulatory [facility] Payers Date Payer Category Payer Unknown [id number] 1975 Unknown [id number] 1975 Unknown [id number] Medicaid [id number] Unknown Summary Purpose Family History No Family History Records FoundNo Family History Records FoundNo Family History Records Found Advance Directives No Advanced Directives Records FoundNo Advanced Directives Records FoundNo Advanced Directives Records Found Additional Source Comments (unrecognized sect ion and content) No Status Records FoundNo Status Records FoundNo Status Records Found INFORMATION SOURCE (unrecogn ized section and content) DATE CREATED AUTHOR AUTHOR'S ORGANIZ ATION 06/29/2021 [facility] DATE CREATED AUTHOR AUTHOR'S ORGANIZ ATION 07/02/2021 [facility] FOR RECORDS PERTAINING TO PATIENTS WHO ARE OR HAVE BEEN ENROLLED IN A CHEMICAL DEPENDENCY/SUBSTANCEABUSE PROGRAM, SOME INFORMATION MAY BE OMITTED. This clinical summary was aggregated from multiple sources. Caution should be exercised in using it in the provision of clinical care. This summary normalizes information from multiple sources, and as a consequence, information in this document may materially change the coding, format and clinical context of patient data. In addition, data may be omitted in some cases. CLINICAL DECISIONS SHOULD BE BASED ON THE PRIMARY CLINICAL RECORDS. [facility] [email or web address] [facility]. provides no warranty or guarantee of the accuracy or completeness of information in this document.
[2023-11-25 11:05] LABS: Absolute Lymphocyte Count 1.33 X10^3/uL (0.83-4.51); Absolute Neutrophil Count 2.2 X10^3/uL (2.0-7.7); Basophil# 0.04 X10^3/uL; Eosinophil# 0.16 X10^3/uL; Eosinophils% 3.8 % (0-5); Hematocrit 42.9 % (40-54); Hemoglobin 14.6 g/dL (13.0-16.5); Lymphocyte # 1.33 X10^3/ul (0.83-4.51); Lymphocyte % 31.7 % (19-41); Mean Corpuscular Hgb 27.2 pg (27.0-32.0); Mean Corpuscular Volume 79.9 fL (80-94); Mean Platelet Vol. 9.8 fl (6.2-12.0); Monocyte# 0.43 X10^3/uL; Monocyte% 10.2 % (0-10); NRBC Flagged by Analyzer 0 % (0-5); Neutrophil # 2.22 X10^3/uL (2.7-7.7); Neutrophil % 52.8 % (47-70); Platelet Count 208 K/mm3 (150-450); RBC Distribution Width CV 12.5 % (11.6-14.6); RBC Distribution Width SD 35.5 fl (35.1-43.9); Red Blood Count 5.37 M/mm3 (4.6-6.2); White Blood Count 4.2 K/mm3 (4.4-11.0)
[2023-11-25 11:18] LABS: ALB/GLOB Ratio 1.1 RATIO (0.9-2.4); AST(SGOT) 36 U/L (15-37); Alanine Aminotransfer ALT/SGPT 70 U/L (16-61); Albumin, Serum 3.9 g/dL (3.2-5.0); Alkaline Phosphatase 73 U/L (45-117); Anion Gap 7 (5-15); BUN 21 mg/dL (7-18); BUN/Creat Ratio 25.4 RATIO (10-20); Calcium,Total 8.8 mg/dL (8.5-10.1); Chloride 102 mmol/L (98-107); Creatinine, Serum 0.83 mg/dL (0.70-1.30); EST Glomerular Filtration Rate 106 mL/min (>60); Est Glom Filt Rate - Afr Amer 128 mL/min (>60); Globulin 3.6 g/dL (2.2-4.2); Glucose 215 mg/dL (74-106); Potassium 3.5 mmol/L (3.5-5.1); Protein, Total 7.5 g/dL (6.4-8.2); Sodium Level 137 mmol/L (136-145)
== END | disposition home or self-care (01) ==
LOC: POLAB3 09:01
PROVIDERS: PCP Family Medicine Geriatric Medicine; Visit Provider Family Medicine Geriatric Medicine
DX: E11.65 Type 2 diabetes mellitus with hyperglycemia (principal); I10 Essential (primary) hypertension
CPT/HCPCS: 36415; 80053; 84443; 85025

== ENCOUNTER → 2023-12-06 | Outpatient (CLI) | payer OTHER, SELFPAY ==
--- NOTE | 2023-12-06 14:15 | US_ITS ---
STUDY: SCROTUM ULTRASOUND REASON FOR EXAM: Male, 48 years old. SCROTAL MASS TECHNIQUE: Ultrasound evaluation of the scrotum was performed with color Doppler and static jonas-scale imaging. COMPARISON: None. FINDINGS: RIGHT TESTICLE INTRATESTICULAR: There is a normal size of the right testicle. The right testicle measures 4.1 cm x 3 cm x 2.2 cm. There is a homogenous echotexture. There is normal arterial and normal venous vascularity. There is no demonstrated right testicular mass or cyst. EXTRATESTICULAR: The epididymis is normal in size. The epididymis head measures 0.9 cm x 0.9 cm x 0.7 cm. There is normal vascularity of the epididymis. There is a well-defined cystic structure within the epididymis, without internal echoes, consistent with an epididymal cyst. There is a 1.5 cm x 1.5 cm x 0.9 cm epididymal cyst. Adjacent to this, there is a 0.9 cm x 0.9 cm x 0.9 cm epididymal cyst. There is a small hydrocele. There is no demonstrated varicocele. There is no demonstrated extratesticular mass or cyst. LEFT TESTICLE INTRATESTICULAR: There is a normal size of the left testicle. The left testicle measures 4.2 cm x 2.8 cm x 2.5 cm. There is a homogenous echotexture. There is normal arterial and normal venous vascularity. There is no demonstrated left testicular mass or cyst. EXTRATESTICULAR: The epididymis is normal in size. The epididymis head measures 0.5 cm x 1 cm x 0.8 cm. There is normal vascularity of the epididymis. There is no demonstrated epididymal cystic structure. There is a small hydrocele. There is no demonstrated varicocele. There is no demonstrated extratesticular mass or cyst. US/Testicular with Arterial Flow IMPRESSION: Small bilateral hydroceles. There are 2 adjacent epididymal cysts in the right scrotum. Electronically Signed: Clem Ying MD at 13:10 EDT ,
--- NOTE | 2023-12-06 14:46 | US_ITS ---
STUDY: ULTRASOUND BREAST - LEFT REASON FOR EXAM: Male, 48 years old. Palpable lump in the left breast. TECHNIQUE: Axial and longitudinal images of the LEFT breast were performed with a high resolution ultrasound transducer. # OF IMAGES: [id number] COMPARISON: Comparison is made with prior mammogram done earlier today. FINDINGS: LEFT Breast: The upper-outer quadrant of the breast was examined. No abnormality is seen. Incidental note is made of a prominent 3.8 cm x 2.7 cm x 1.9 cm left axillary lymph node. Patient just recovered from Covid. US/Breast Limited Unilateral IMPRESSION: Enlarged left axillary lymph node. Clinical correlation is recommended. ASSESSMENT CATEGORY: BIRADS Category 3: Probably Benign - Short-Interval Follow-up Suggested. A letter regarding these results will be sent to the patient by the facility within 30 days. Electronically Signed: Clem Ying MD at 13:35 EDT ,
--- NOTE | 2023-12-06 14:46 | BI_ITS ---
MAMMOGRAPHY - BILATERAL DIAGNOSTIC REASON FOR EXAM: Male, 48 years old. Left retroareolar breast and left axillary swelling. PERTINENT HISTORY: Non-contributory. TECHNIQUE: Digital bilateral breast tammy (3D mammographic acquisition) in the CC and MLO projections. 2-D mediolateral oblique (MLO) and craniocaudad (CC) views of both breasts were obtained. CAD: Full Field Digital Mammography with Computer Added Detection was performed. COMPARISON: None. Baseline examination. FINDINGS: Breast Composition: The breasts are almost entirely fatty. There are no dominant masses or suspicious calcifications. No other significant abnormalities are identified. BI/DIAG MAMM W/CAD, BILAT IMPRESSION: Negative diagnostic mammogram. With the patient''s history of a left retroareolar palpable lump and swelling of the left axilla, targeted correlation with ultrasound recommended. ASSESSMENT CATEGORY: BIRADS Category 0: Incomplete. Need additional imaging evaluation. A letter regarding these results will be sent to the patient by the facility within 30 days. Approximately 10% of breast cancers are not detected by mammography. A normal mammogram should not delay biopsy of a clinically suspicious abnormality. Electronically Signed: Clem Ying MD at 15:36 EDT ,
== END | disposition home or self-care (01) ==
PROVIDERS: PCP Family Medicine Geriatric Medicine; Referring Provider Family Medicine Geriatric Medicine; Visit Provider Family Medicine Geriatric Medicine
DX: N50.89 Other specified disorders of the male genital organs (principal); R22.32 Localized swelling, mass and lump, left upper limb; N63.20 Unspecified lump in the left breast, unspecified quadrant
CPT/HCPCS: 76642; 76870; 77062; 77066; 93976; G0279

== ENCOUNTER → 2024-02-23 | Outpatient (CLI) | payer OTHER, SELFPAY ==
[2024-02-23 11:21] LABS: Absolute Lymphocyte Count 1.52 X10^3/uL (0.83-4.51); Absolute Neutrophil Count 2.7 X10^3/uL (2.0-7.7); Basophil# 0.03 X10^3/uL; Basophil% 0.6 % (0-1); Eosinophil# 0.22 X10^3/uL; Eosinophils% 4.5 % (0-5); Hematocrit 42.1 % (40-54); Hemoglobin 14.1 g/dL (13.0-16.5); Lymphocyte # 1.52 X10^3/ul (0.83-4.51); Lymphocyte % 30.9 % (19-41); Mean Corp Hgb Conc 33.5 g/dL (32-36); Mean Corpuscular Hgb 27.3 pg (27.0-32.0); Mean Corpuscular Volume 81.6 fL (80-94); Mean Platelet Vol. 9.7 fl (6.2-12.0); Monocyte# 0.44 X10^3/uL; Monocyte% 8.9 % (0-10); NRBC Flagged by Analyzer 0 % (0-5); Neutrophil # 2.69 X10^3/uL (2.7-7.7); Neutrophil % 54.7 % (47-70); Platelet Count 229 K/mm3 (150-450); RBC Distribution Width CV 12.4 % (11.6-14.6); RBC Distribution Width SD 36.8 fl (35.1-43.9); Red Blood Count 5.16 M/mm3 (4.6-6.2); White Blood Count 4.9 K/mm3 (4.4-11.0)
[2024-02-23 11:55] LABS: AST(SGOT) 36 U/L (15-37); Alanine Aminotransfer ALT/SGPT 48 U/L (16-61); Alkaline Phosphatase 78 U/L (45-117); Anion Gap 8 (5-15); BUN 20 mg/dL (7-18); BUN/Creat Ratio 25.3 RATIO (10-20); Calcium,Total 9.4 mg/dL (8.5-10.1); Chloride 101 mmol/L (98-107); Creatinine, Serum 0.79 mg/dL (0.70-1.30); EST Glomerular Filtration Rate 112 mL/min (>60); Est Glom Filt Rate - Afr Amer 136 mL/min (>60); Glucose 219 mg/dL (74-106); Potassium 3.7 mmol/L (3.5-5.1); Sodium Level 136 mmol/L (136-145); Thyroid Stim Hormone (TSH) 2.04 uIU/mL (0.358-3.74)
== END | disposition home or self-care (01) ==
LOC: LAB 10:49
PROVIDERS: PCP Family Medicine Geriatric Medicine; Referring Provider Family Medicine Geriatric Medicine; Visit Provider Family Medicine Geriatric Medicine
DX: I10 Essential (primary) hypertension (principal)
CPT/HCPCS: 36415; 80053; 84443; 85025

== ENCOUNTER → 2024-05-24 | Outpatient (CLI) | payer OTHER, SELFPAY ==
[2024-05-24 10:52] LABS: Absolute Lymphocyte Count 1.47 X10^3/uL (0.83-4.51); Absolute Neutrophil Count 3.3 X10^3/uL (2.0-7.7); Basophil# 0.04 X10^3/uL; Basophil% 0.7 % (0-1); Eosinophil# 0.28 X10^3/uL; Hematocrit 43.1 % (40-54); Hemoglobin 14.2 g/dL (13.0-16.5); Lymphocyte # 1.47 X10^3/ul (0.83-4.51); Lymphocyte % 26.4 % (19-41); Mean Corp Hgb Conc 32.9 g/dL (32-36); Mean Corpuscular Hgb 26.6 pg (27.0-32.0); Mean Corpuscular Volume 80.9 fL (80-94); Mean Platelet Vol. 9.6 fl (6.2-12.0); Monocyte# 0.48 X10^3/uL; Monocyte% 8.6 % (0-10); NRBC Flagged by Analyzer 0 % (0-5); Neutrophil # 3.26 X10^3/uL (2.7-7.7); Neutrophil % 58.8 % (47-70); Platelet Count 238 K/mm3 (150-450); RBC Distribution Width CV 12.5 % (11.6-14.6); RBC Distribution Width SD 36.2 fl (35.1-43.9); Red Blood Count 5.33 M/mm3 (4.6-6.2); White Blood Count 5.6 K/mm3 (4.4-11.0)
[2024-05-24 11:24] LABS: Hemoglobin A1c 7.9 % (3.8-5.6)
[2024-05-24 11:37] LABS: AST(SGOT) 30 U/L (15-37); Alanine Aminotransfer ALT/SGPT 49 U/L (16-61); Albumin, Serum 3.8 g/dL (3.2-5.0); Alkaline Phosphatase 76 U/L (45-117); Anion Gap 8 (5-15); BUN 26 mg/dL (7-18); BUN/Creat Ratio 28.8 RATIO (10-20); Calcium,Total 9.4 mg/dL (8.5-10.1); Chloride 100 mmol/L (98-107); Cholesterol 138 mg/dL (200); EST Glomerular Filtration Rate 96 mL/min (>60); Est Glom Filt Rate - Afr Amer 116 mL/min (>60); Globulin 3.8 g/dL (2.2-4.2); Glucose 165 mg/dL (74-106); High Density Lipoprotein 36 mg/dL; Potassium 3.9 mmol/L (3.5-5.1); Protein, Total 7.6 g/dL (6.4-8.2); Sodium Level 137 mmol/L (136-145); Triglycerides 149 mg/dL; Very Low Density Lipoprotein 30 mg/dL (5-40)
== END | disposition home or self-care (01) ==
LOC: POLAB3 10:38
PROVIDERS: PCP Family Medicine Geriatric Medicine; Visit Provider Family Medicine Geriatric Medicine
DX: E11.65 Type 2 diabetes mellitus with hyperglycemia (principal); I10 Essential (primary) hypertension; E78.5 Hyperlipidemia, unspecified
CPT/HCPCS: 36415; 80053; 80061; 83036; 84443; 85025

== ENCOUNTER → 2024-06-27 | Outpatient (CLI) | payer OTHER, SELFPAY ==
--- NOTE | 2024-06-27 11:46 | US_ITS ---
HISTORY: enlarged LN left axilla. TECHNIQUE: Ultrasound images of the left axilla. 35 images. COMPARISON: 12/06/2023 FINDINGS: 1.7 x 4.4 x 5 cm oval mass. 1.6 x 2.7 x 3.2 cm oval mass. 1.1 x 1.4 x 1.7 cm lymph node. 1.2 x 2.2 x 2.6 cm, 1.3 x 2.1 x 3.1 cm, and 0.9 x 1.5 x 2 cm lymph nodes or masses. US/Ext Non Vasc Limited/Soft Tiss IMPRESSION: Multiple enlarged lymph nodes/lymph node masses in the left axilla increased in size and number compared to prior. Recommend further workup, close follow-up with referral to breast center, and/or correlation with tissue diagnosis. Electronically Signed: Sulema Erazo MD at 10:55 EDT ,
== END | disposition home or self-care (01) ==
LOC: US 11:46
PROVIDERS: PCP Family Medicine Geriatric Medicine; Referring Provider Surgery; Visit Provider Surgery
DX: R59.0 Localized enlarged lymph nodes (principal)
CPT/HCPCS: 76882

== ENCOUNTER → 2024-07-24 | Outpatient (CLI) | payer OTHER, SELFPAY ==
[2024-07-24 13:20] VITALS: BP 138/73; PULSE 69; RESP 16; TEMP 35.8; O2SAT 97; BMI 37.5
[2024-07-24 13:46] VITALS: BP 138/73; PULSE 69
[2024-07-24] MEDS: Nitroglycerin SL (ED/IMG/CATH) 0.4 MG TABLET SL (13:46)
[2024-07-24 13:52] VITALS: BP 119/66; PULSE 76; RESP 16; O2SAT 95
[2024-07-24 13:52] LABS: CREATININE FINGERSTICK < 1.0 mg/dL (0.70-1.30); EGFR FINGERSTICK > 60.0000 mL/min (>60)
== END | disposition home or self-care (01) ==
PROVIDERS: PCP Family Medicine Geriatric Medicine; Referring Provider Internal Medicine Cardiovascular Disease; Visit Provider Internal Medicine Cardiovascular Disease
DX: Z01.812 Encounter for preprocedural laboratory examination (principal); R07.9 Chest pain, unspecified
CPT/HCPCS: 75574; 76380; Q9967

== ENCOUNTER → 2024-08-29 | Outpatient (CLI) | payer OTHER, SELFPAY ==
[2024-08-29 10:15] LABS: Absolute Neutrophil Count 3.2 X10^3/uL (2.0-7.7); Basophil# 0.05 X10^3/uL; Eosinophil# 0.25 X10^3/uL; Eosinophils% 4.9 % (0-5); Hematocrit 40.4 % (40-54); Hemoglobin 13.7 g/dL (13.0-16.5); Lymphocyte % 23.3 % (19-41); Mean Corp Hgb Conc 33.9 g/dL (32-36); Mean Corpuscular Volume 79.7 fL (80-94); Mean Platelet Vol. 9.3 fl (6.2-12.0); Monocyte# 0.37 X10^3/uL; Monocyte% 7.2 % (0-10); NRBC Flagged by Analyzer 0 % (0-5); Neutrophil # 3.21 X10^3/uL (2.7-7.7); Neutrophil % 62.2 % (47-70); Platelet Count 289 K/mm3 (150-450); RBC Distribution Width CV 12.8 % (11.6-14.6); RBC Distribution Width SD 36.2 fl (35.1-43.9); Red Blood Count 5.07 M/mm3 (4.6-6.2); White Blood Count 5.2 K/mm3 (4.4-11.0)
[2024-08-29 11:05] LABS: Microalbumin,Random Urine 7.2 mg/L (NO RANGE EST.)
[2024-08-29 11:10] LABS: ALB/GLOB Ratio 0.9 RATIO (0.9-2.4); AST(SGOT) 28 U/L (15-37); Alanine Aminotransfer ALT/SGPT 58 U/L (16-61); Albumin, Serum 3.5 g/dL (3.2-5.0); Alkaline Phosphatase 77 U/L (45-117); Anion Gap 3 (5-15); BUN 21 mg/dL (7-18); BUN/Creat Ratio 24.2 RATIO (10-20); Calcium,Total 8.9 mg/dL (8.5-10.1); Chloride 99 mmol/L (98-107); Cholesterol 112 mg/dL (200); Creatinine, Serum 0.87 mg/dL (0.70-1.30); EST Glomerular Filtration Rate 100 mL/min (>60); Est Glom Filt Rate - Afr Amer 121 mL/min (>60); Glucose 289 mg/dL (74-106); High Density Lipoprotein 32 mg/dL; Potassium 3.3 mmol/L (3.5-5.1); Protein, Total 7.5 g/dL (6.4-8.2); Sodium Level 135 mmol/L (136-145); Triglycerides 188 mg/dL; Very Low Density Lipoprotein 38 mg/dL (5-40)
[2024-08-29 12:10] LABS: Hemoglobin A1c 7.7 % (3.8-5.6)
== END | disposition home or self-care (01) ==
LOC: POLAB3 09:46
PROVIDERS: PCP Family Medicine Geriatric Medicine; Visit Provider Family Medicine Geriatric Medicine
DX: E11.65 Type 2 diabetes mellitus with hyperglycemia (principal); I10 Essential (primary) hypertension; E78.5 Hyperlipidemia, unspecified
CPT/HCPCS: 36415; 80053; 80061; 82043; 83036; 84443; 85025

== ENCOUNTER → 2024-09-07 | Outpatient (CLI) | payer OTHER, SELFPAY ==
[2024-09-07 15:40] LABS: Anion Gap 3 (5-15); BUN 21 mg/dL (7-18); BUN/Creat Ratio 23.1 RATIO (10-20); Calcium,Total 9.2 mg/dL (8.5-10.1); Chloride 104 mmol/L (98-107); Creatinine, Serum 0.91 mg/dL (0.70-1.30); EST Glomerular Filtration Rate 95 mL/min (>60); Est Glom Filt Rate - Afr Amer 115 mL/min (>60); Glucose 187 mg/dL (74-106); Potassium 3.8 mmol/L (3.5-5.1); Sodium Level 136 mmol/L (136-145)
== END | disposition home or self-care (01) ==
LOC: LAB 14:43
PROVIDERS: PCP Family Medicine Geriatric Medicine; Referring Provider Family Medicine Geriatric Medicine; Visit Provider Family Medicine Geriatric Medicine
DX: I10 Essential (primary) hypertension (principal)
CPT/HCPCS: 36415; 80048

== ENCOUNTER → 2024-12-07 | Outpatient (CLI) | payer OTHER, SELFPAY ==
[2024-12-07 09:34] LABS: Absolute Neutrophil Count 2.8 X10^3/uL (2.0-7.7); Basophil# 0.02 X10^3/uL; Basophil% 0.4 % (0-1); Eosinophil# 0.23 X10^3/uL; Eosinophils% 4.7 % (0-5); Hematocrit 43.4 % (40-54); Hemoglobin 14.7 g/dL (13.0-16.5); Lymphocyte % 28.6 % (19-41); Mean Corp Hgb Conc 33.9 g/dL (32-36); Mean Corpuscular Hgb 26.9 pg (27.0-32.0); Mean Corpuscular Volume 79.5 fL (80-94); Mean Platelet Vol. 9.3 fl (6.2-12.0); Monocyte% 8.2 % (0-10); NRBC Flagged by Analyzer 0 % (0-5); Neutrophil # 2.82 X10^3/uL (2.7-7.7); Neutrophil % 57.7 % (47-70); Platelet Count 246 K/mm3 (150-450); RBC Distribution Width CV 12.8 % (11.6-14.6); Red Blood Count 5.46 M/mm3 (4.6-6.2); White Blood Count 4.9 K/mm3 (4.4-11.0)
[2024-12-07 11:04] LABS: Hemoglobin A1c 7.9 % (<=5.6)
[2024-12-07 11:27] LABS: ALB/GLOB Ratio 1.3 RATIO (0.9-2.4); AST(SGOT) 37 U/L (<=37); Alanine Aminotransfer ALT/SGPT 50 U/L (<=46); Albumin, Serum 4.6 g/dL (3.5-5.0); Alkaline Phosphatase 90 U/L (40-129); Anion Gap 16 (5-15); BUN 24 mg/dL (4-19); Calcium,Total 9.5 mg/dL (7.6-11.0); Carbon Dioxide 22.6 mmol/L (21.0-32.0); Chloride 99 mmol/L (98-108); Creatinine, Serum 0.81 mg/dL (0.70-1.20); EST Glomerular Filtration Rate 109 (>60); Globulin 3.5 g/dL (2.2-4.2); Glucose 176 mg/dL (70-99); Potassium 3.8 mmol/L (3.3-5.1); Protein, Total 8.1 g/dL (5.9-8.4); Sodium Level 137 mmol/L (133-145); Total Bilirubin 1.68 mg/dL (0.00-1.30)
== END | disposition home or self-care (01) ==
PROVIDERS: PCP Family Medicine Geriatric Medicine; Referring Provider Family Medicine Geriatric Medicine; Visit Provider Family Medicine Geriatric Medicine
DX: E11.22 Type 2 diabetes mellitus with diabetic chronic kidney disease (principal); I10 Essential (primary) hypertension; E78.5 Hyperlipidemia, unspecified
CPT/HCPCS: 36415; 80053; 83036; 84443; 85025

== ENCOUNTER → 2025-03-11 | Outpatient (CLI) | payer OTHER, SELFPAY ==
[2025-03-11 11:42] LABS: Absolute Lymphocyte Count 1.34 X10^3/uL (0.83-4.51); Absolute Neutrophil Count 2.7 X10^3/uL (2.0-7.7); Basophil# 0.03 X10^3/uL; Basophil% 0.6 % (0-1); Eosinophil# 0.23 X10^3/uL; Hematocrit 41.2 % (40-54); Hemoglobin 14.1 g/dL (13.0-16.5); Lymphocyte # 1.34 X10^3/ul (0.83-4.51); Lymphocyte % 28.9 % (19-41); Mean Corp Hgb Conc 34.2 g/dL (32-36); Mean Corpuscular Hgb 27.4 pg (27.0-32.0); Mean Corpuscular Volume 80.2 fL (80-94); Mean Platelet Vol. 9.5 fl (6.2-12.0); Monocyte# 0.36 X10^3/uL; Monocyte% 7.8 % (0-10); NRBC Flagged by Analyzer 0 % (0-5); Neutrophil # 2.66 X10^3/uL (2.7-7.7); Neutrophil % 57.5 % (47-70); Platelet Count 220 K/mm3 (150-450); RBC Distribution Width CV 12.6 % (11.6-14.6); RBC Distribution Width SD 35.8 fl (35.1-43.9); Red Blood Count 5.14 M/mm3 (4.6-6.2); White Blood Count 4.6 K/mm3 (4.4-11.0)
[2025-03-11 12:27] LABS: ALB/GLOB Ratio 1.4 RATIO (0.9-2.4); AST(SGOT) 28 U/L (<=37); Alanine Aminotransfer ALT/SGPT 33 U/L (<=46); Albumin, Serum 4.3 g/dL (3.5-5.0); Alkaline Phosphatase 73 U/L (40-129); Anion Gap 10 (5-15); BUN 19 mg/dL (4-19); BUN/Creat Ratio 25.5 RATIO (10-20); Calcium,Total 9.1 mg/dL (7.6-11.0); Carbon Dioxide 26.1 mmol/L (21.0-32.0); Chloride 102 mmol/L (98-108); Cholesterol 112 mg/dL (<=200); Creatinine, Serum 0.76 mg/dL (0.70-1.20); EST Glomerular Filtration Rate 112 (>60); Globulin 3.1 g/dL (2.2-4.2); Glucose 134 mg/dL (70-99); High Density Lipoprotein 32 mg/dL; Low Density Lipoprotein Calc. 51 mg/dL; Potassium 3.9 mmol/L (3.3-5.1); Protein, Total 7.4 g/dL (5.9-8.4); Sodium Level 138 mmol/L (133-145); Total Bilirubin 1.26 mg/dL (0.00-1.30); Triglycerides 147 mg/dL; Very Low Density Lipoprotein 29 mg/dL (5-40); cholesterol:hdl ratio screen 3.49
[2025-03-11 12:50] LABS: Hemoglobin A1c 7.7 % (<=5.6)
== END | disposition home or self-care (01) ==
LOC: LAB 11:01
PROVIDERS: PCP Family Medicine Geriatric Medicine; Referring Provider Family Medicine Geriatric Medicine; Visit Provider Family Medicine Geriatric Medicine
DX: E11.22 Type 2 diabetes mellitus with diabetic chronic kidney disease (principal); I10 Essential (primary) hypertension; E78.5 Hyperlipidemia, unspecified
CPT/HCPCS: 36415; 80053; 80061; 83036; 84443; 85025

== ENCOUNTER → 2025-07-29 | Outpatient (CLI) | payer OTHER, SELFPAY ==
[2025-07-29 16:31] LABS: Hematocrit 40.2 % (40-54); Hemoglobin 13.7 g/dL (13.0-16.5); Immature Granulocytes Count 0.020 X10^3/uL (0.0-0.0); Mean Corp Hgb Conc 34.1 g/dL (32-36); Mean Corpuscular Volume 81.0 fL (80-94); Mean Platelet Vol. 9.7 fl (6.2-12.0); NRBC Flagged by Analyzer 0 % (0-5); Platelet Count 243 K/mm3 (150-450); RBC Distribution Width CV 12.5 % (11.6-14.6); RBC Distribution Width SD 36.2 fl (35.1-43.9); Red Blood Count 4.96 M/mm3 (4.6-6.2); White Blood Count 6.0 K/mm3 (4.4-11.0)
[2025-07-29 17:48] LABS: AST(SGOT) 28 U/L (<=37); Alanine Aminotransfer ALT/SGPT 31 U/L (<=46); Albumin, Serum 4.3 g/dL (3.5-5.0); Alkaline Phosphatase 72 U/L (40-129); Anion Gap 12 (5-15); BUN 18 mg/dL (4-19); BUN/Creat Ratio 21.1 RATIO (10-20); Calcium,Total 9.4 mg/dL (7.6-11.0); Carbon Dioxide 28.4 mmol/L (21.0-32.0); Chloride 100 mmol/L (98-108); Cholesterol 123 mg/dL (<=200); Globulin 3.0 g/dL (2.2-4.2); Glucose 107 mg/dL (70-99); Low Density Lipoprotein Calc. 50 mg/dL; Potassium 3.7 mmol/L (3.3-5.1); Triglycerides 264 mg/dL; Very Low Density Lipoprotein 53 mg/dL (5-40); cholesterol:hdl ratio screen 3.89
[2025-07-30 00:12] LABS: Xtra Tube Kwok EXTRA TUBE
== END | disposition home or self-care (01) ==
LOC: POLAB3 16:12
PROVIDERS: PCP Family Medicine Geriatric Medicine; Visit Provider Family Medicine Geriatric Medicine
DX: I10 Essential (primary) hypertension (principal); E03.9 Hypothyroidism, unspecified; E78.5 Hyperlipidemia, unspecified; R73.9 Hyperglycemia, unspecified
CPT/HCPCS: 36415; 80053; 80061; 83036; 84443; 85025

== ENCOUNTER → 2025-08-29 | Outpatient (CLI) | payer OTHER, SELFPAY ==
[2025-08-29 18:17] LABS: Creatinine, Urine (random) 64.20 mg/dL (39.00-259.00); Microalbumin,Random Urine < 12.0 mg/L (<20 mg/L)
== END | disposition home or self-care (01) ==
LOC: POLAB3 16:21
PROVIDERS: PCP Family Medicine Geriatric Medicine; Visit Provider Family Medicine Geriatric Medicine
DX: E11.65 Type 2 diabetes mellitus with hyperglycemia (principal)
CPT/HCPCS: 82043; 82570

== ENCOUNTER → 2025-09-10 | Outpatient (CLI) | payer OTHER, SELFPAY ==
--- NOTE | 2025-09-10 07:14 | US_ITS ---
PROCEDURE: ABDOMEN LIMITED 09/10/2025 REASON FOR EXAM: ABD PAIN TECHNIQUE: Procedure Code: USABDL Modality: US Procedure: ABDOMEN LIMITED FINDINGS: Liver measures 21.5 cm in greatest longitudinal mention and appears hyperechoic, compatible with fatty infiltration. No intrahepatic or extrahepatic biliary ductal dilation. Common bile duct 3 mm. Normal hepatopetal flow in the portal vein. Normal color flow in the hepatic artery. Echogenic pancreas without other abnormality identified. Right kidney 13.4 x 6.5 x 5.6 cm. No calculus, cyst, mass, hydronephrosis, or cortical thinning is identified. Gallbladder is surgically absent. US/Abdomen Limited IMPRESSION: Hepatomegaly and steatosis. Echogenic pancreas suggesting fatty infiltration. Otherwise unremarkable. [facility]
--- OUTSIDE RECORDS SUMMARY | 2025-09-10 07:22 | XMS RPT_ITS | CCD ---
Author Organization [facility] [place] [facility] Care Team Providers Care Stem Teacher Name Role Phone JENNIFER CHAMPAGNE Primary Care Unavailable CHAMPAGNE, JENNIFER Consulting Unavailable CHAMPAGNE, JENNIFER Attending Unavailable CHAMPAGNE, JENNIFER Admitting Unavailable PROVIDER, UNKNOWN Consulting Unavailable PROVIDER, UNKNOWN Consulting Unavailable PROVIDER, UNKNOWN Consulting Unavailable CHAMPAGNE, JENNIFER Primary Care Unavailable CHAMPAGNE, JENNIFER Consulting Unavailable CHAMPAGNE, JENNIFER Attending Unavailable CHAMPAGNE, JENNIFER Admitting Unavailable PROVIDER, UNKNOWN Consulting Unavailable PROVIDER, UNKNOWN Consulting Unavailable PROVIDER, UNKNOWN Consulting Unavailable KSENIA MCCULLOUGH CNP Admitting Unavailable KSENIA MCCULLOUGH CNP Primary Care Unavailable KSENIA MCCULLOUGH CNP Attending Unavailable MIREYA, JENNIFER Consulting Unavailable PROVIDER, UNKNOWN Consulting Unavailable PROVIDER, UNKNOWN Consulting Unavailable PROVIDER, UNKNOWN Consulting Unavailable Dr. Angel Pang Chi Primary Care Provider Bird, Dr. Angel Pedroza Referring Provider [phone] Dr. Qamar Shepard Attending Provider CebuDr. Qamar warner Other Provider Cebul, Dr. Qamar Cancino Referring Provider YULIA London Attending Provider [phone] Dr. Angel Pang Chi Primary Care Provider Dr. Angel Pang Chi Other Provider Dr. Jaun Meyers Attending Provider Bird ORTEGA, Dr. Angel Pedroza Primary Care Provider Bird ORTEGA, Dr. Angel Pedroza Attending Provider Bird ORTEGA, Dr. Angel Pedroza Referring Provider Bird ORTEGA, Dr. Angel Pedroza Primary Care Provider [phone] Bird ORTEGA, Dr. Angel Pedroza Attending Provider Dr. Angel Pang MD, Chi Referring Provider Steffen Hendrickson Consulting Unavailable Bird, Angel Chi Primary Care Unavailable Curtis Mar Attending Unavailable Steffen Hendrickson Referring Unavailable Bird, Angel Chi Referring Unavailable Bird, Angel Chi Attending Unavailable Bird, Angel Chi Primary Care Unavailable Bird, Angel Chi Attending Unavailable Bird, Angel Chi Primary Care Unavailable Steffen Hendrickson Attending Unavailable Bird, Angel Chi Primary Care Unavailable Steffen Hendrickson Referring Unavailable Steffen Hendrickson Attending Unavailable Bird, Angel Chi Primary Care Unavailable Bird, Angel Chi Referring Unavailable Bird, Angel Chi Attending Unavailable Bird, Angel Chi Primary Care Unavailable Bird, Angel Chi Referring Unavailable Bird, Angel Chi Attending Unavailable Bird, Angel Chi Primary Care Unavailable Bird, Angel Chi Referring Unavailable Bird, Angel Chi Attending Unavailable Bird, Angel Chi Primary Care Unavailable Bird, Angel Chi Primary Care Unavailable Ga Regan Referring Unavailable Ga Regan Attending Unavailable Medications Current Medications Medication Drug Class(es) Dates Sig (Normalized) Sig (Original) acetaminophen 325 mg / HYDROcodone bitartrate 5 mg oral tablet (4 sources) Opioid Agonist Start: 11-25-2021 take 1 tablet by mouth every six hours Hydrocodone-Acetam inophen Active 1 TABLET PO EVERY 6 HOURS 5 2 November 25, 2021 atorvastatin 40 mg oral tablet (16 sources) HMG-CoA Reductase Inhibitor Start: 06-14-2024 take 1 tablet by mouth once daily Atorvastatin 40 mg tablet Active 40 mg PO daily June 14, 2024 12:00am Start: 01-08-2017 End: 10-23-2021 take 40 mg by mouth once daily Lipitor Discontinued 40 mg PO DAILY January 08, 2017 12:00am October 23, 2021 2:41pm Beets preparation (14 sources) Start: 10-28-2021 take 1 tablet by rabia th once daily Red Beet Active 1 TABLET SL/PO DAILY October 28, 2021 3:34pm Start: 10-28-2021 End: 06-27-2024 Red Beet Discontinued 1 {tbl } SL/PO DAILY October 28, 2021 1:00am June 27, 2024 1:20pm Start: 10-28-2021 take 1 tablet by rabia th once daily Red Beet Active 1 TABLET SL/PO DAILY October 28, 2021 12:00am Start: 10-28-2021 take 1 tablet by rabia th once daily Red Beet Active 1 TABLET SL/PO DAILY October 28, 2021 1:00am glimepiride 4 mg oral tablet (2 sources) Sulfonylurea Start: 06-14-2024 take 1 tablet by mouth twice daily Glimepiride 4 mg tablet Active 4 mg PO TWICE A DAY June 14, 2024 12:00am hydroCHLOROthiazide 25 mg / losartan potassium 100 mg oral tablet (14 sources) Thiazide Diuretic, Angiotensin 2 Receptor Tyshawn Start: 10-07-2020 Losartan-Hydroch lorothiazide 100-25 mg tablet Active 1 {tbl} PO DAILY October 07, 2020 1:00am Start: 10-07-2020 take 1 tablet by rabia th once daily Losartan-Hydrochlorothiazide Active 1 TA BLET PO DAILY October 07, 2020 1:00am Lidocaine (3 sources) Antiarrhythmic, Amide Local Anesthetic Start: 04-10-2022 take 1 mL by mouth every six hours as needed Lidocaine Hcl (Lidocaine Viscous) 2 % solution Active 5 ML PO EVERY 6 HOURS April 10, 2022 7:12pm swish and swallow as needed. Start: 04-10-2022 take 1 mL by mouth e very six hours as needed Lidocaine Hcl (Lidocaine Viscous) 2 % solution Active 5 ML PO EVERY 6 HOURS April 10, 2022 8:12pm swish and swallow as needed. metFORMIN hydrochloride 1000 mg oral tablet (20 sources) Biguanide Start: 06-14-2024 take 1 tablet by mouth twice daily at mealtime Metformin 1,000 mg tablet Active 1000 mg PO TWICE DAILY WITH MEALS June 14, 2024 10:40am Start: 10-23-2021 End: 06-14-2024 Metformin 1,000 mg tablet Discontinued 500 mg PO TWICE DAILY WITH MEALS October 23, 2021 2:41pm June 14, 2024 11:01am Start: 10-23-2021 take 500 mg by mouth twice daily at mealtime Metformin Active 500 MG PO TWICE DAILY WITH MEALS October 23, 2021 2:41pm Start: 01-08-2017 End: 10-23-2021 take 1 tablet by mouth twice daily at mealtime Metformin 1,000 MG tablet Discontinued 1000 mg PO TWICE DAILY WITH MEALS January 08, 2017 12:00am October 23, 2021 2:47pm Multivitamin preparation (12 sources) Start: 10-23-2021 take 1 tablet by mouth once daily Multivitamin Active 1 TABLET PO DAILY October 23, 2021 2:42pm Start: 10-23-2021 take 1 tablet by rabia th once daily Multivitamin Active 1 TABLET PO DAILY October 23, 2021 12:00am Start: 10-23-2021 take 1 tablet by rabia th once daily Multivitamin Active 1 TABLET PO DAILY October 23, 2021 1:00am Mora-3 Fatty Acids (Fish Oil Concentrate) 1,000 mg capsule (14 sources) Start: 10-07-2020 take 1 capsule by mouth twice daily Mora-3 Fatty Acids (Fish Oil Concentrate) 1,000 mg capsule Active 1000 MG PO TWICE A DAY October 07, 2020 3:53pm Start: 10-07-2020 take 1 capsule by mo ut twice daily Mora-3 Fatty Acids (Fish Oil Concentrate) 1,000 mg capsule Active 1000 mg PO TWICE A DAY October 07, 2020 1:00am Start: 10-07-2020 take 1 capsule by mo uth twice daily Mora-3 Fatty Acids (Fish Oil Concentrate) 1,000 mg capsule Active 1000 MG PO TWICE A DAY October 07, 2020 12:00am Start: 10-07-2020 take 1 capsule by mo ut twice daily Mora-3 Fatty Acids (Fish Oil Concentrate) 1,000 mg capsule Active 1000 MG PO TWICE A DAY October 07, 2020 1:00am pantoprazole 40 mg delayed release oral tablet (14 sources) Proton Pump Inhibitor Start: 10-23-2021 take 1 tablet by mouth once daily Pantoprazole 40 mg tablet,delayed release (DR/EC) Active 40 mg PO DAILY October 23, 2021 1:00am pioglitazone 30 mg oral tablet (2 sources) Peroxisome Proliferator Receptor alpha Agonist, Peroxisome Proliferator Receptor gamma Agonist, Thiazolidinedione Start: 06-14-2024 take 1 tablet by mouth once daily Pioglitazone 30 mg tablet Active 30 mg PO daily June 14, 2024 12:00am Completed/Discontinued Medications Medication Drug Class(es) Dates Sig (Normalized) Sig (Original) amoxicillin 875 mg / clavulanate 125 mg oral tablet (20 sources) Penicillin-class Antibacterial Start: 10-07-2020 End: 10-23-2021 Amoxicillin-Pot Clavulanate (Augmentin) 875-125 mg tablet Discontinued 1 {tbl} PO TWICE A DAY 10 0 October 13, 2020 1:00am October 23, 2021 2:40pm aspirin 81 mg delayed release oral tablet (20 sources) Platelet Aggregation Inhibitor, Nonsteroidal Anti-inflammatory Drug Start: 10-07-2020 End: 10-23-2021 take 2 tablets by mouth once daily Aspirin 81 mg tablet,delayed release (DR/EC) Discontinued 162 mg PO DAILY@0800 October 07, 2020 3:52pm October 23, 2021 2:41pm Start: 10-07-2020 End: 10-23-2021 take 162 mg by mouth once daily Aspirin Discontinued 1 62 MG PO DAILY@0800 October 07, 2020 3:52pm October 23, 2021 2:41pm Start: 01-10-2017 End: 10-07-2020 take 1 tablet by mouth once daily Aspirin 81 MG tablet Discontinued 81 mg PO DAILY@0800 30 0 January 10, 2017 12:00am October 07, 2020 3:54pm lactobacillus acidophilus [id number] unt oral capsule (14 sources) Start: 10-28-2021 End: 06-27-2024 take 10 capsules by mouth twice daily Lactobacillus Acidophilus (Probiotic) 10 billion cell Capsule Discontinued 98460 NMA PO TWICE A DAY October 28, 2021 1:00am June 27, 2024 1:20pm lisinopril 10 mg oral tablet (14 sources) Angiotensin Converting Enzyme Inhibitor Start: 01-08-2017 End: 10-07-2020 take 10 mg by mouth once daily Lisinopril Discontinued 10 mg PO DAILY January 08, 2017 12:00am October 07, 2020 3:52pm magnesium citrate 100 mg oral tablet (2 sources) Start: 06-14-2024 End: 06-27-2024 take 1 capsule by mouth once daily Magnesium Citrate 100 mg capsule Discontinued 100 mg PO daily June 14, 2024 12:00am June 27, 2024 1:20pm Multivitamin tablet (2 sources) Start: 10-23-2021 End: 06-27-2024 Multivitamin tablet Discontinued 1 {tbl} PO DAILY October 23, 2021 1:00am October 16th, 2024 1:20pm omeprazole 20 mg delayed release oral capsule (14 sources) Proton Pump Inhibitor Start: 10-07-2020 End: 10-23-2021 take 1 capsule by mouth once daily Omeprazole 20 mg capsule,delayed release(DR/EC) Discontinued 20 mg PO DAILY October 07, 2020 1:00am October 23, 2021 2:41pm simvastatin 40 mg oral tablet (14 sources) HMG-CoA Reductase Inhibitor Start: 10-23-2021 End: 06-27-2024 take 1 tablet by mouth once daily Simvastatin 40 mg tablet Discontinued 40 mg PO DAILY October 23, 2021 1:00am June 27, 2024 1:20pm Problems Active Problems Problem Classification Problem Date Documented Da te Episodic/Chronic Abdominal pain (14 sources) Abdominal pain; Translations: [Unspecified abdominal pain] 10-23-2021 Episodic Biliary tract disease (20 sources) Chronic cholecystitis with calculus; Translations: [Calculus of gallbladder with chronic cholecystitis without obstruction] Episodic Cardiac dysrhythmias (10 sources) Palpitations; Translations: [Palpitations] 08-24-2022 Episodic Diabetes mellitus with complications (5 sources) Type 2 diabetes mellitus with hyperglycemia; Translations: [Type 2 diabetes mellitus with diabetic chronic kidney disease] Onset: Chronic Diabetes mellitus without complication (14 sources) Diabetes mellitus; Translations: [Type 2 diabetes mellitus without complications] 04-10-2022 Chronic Disorders of lipid metabolism (14 sources) Mixed hyperlipidemia; Translations: [Mixed hyperlipidemia] 10-07-2020 Chronic Esophageal disorders (2 sources) Gastroesophageal reflux disease; Translations: [Gastro-esophageal reflux disease without esophagitis] 06-14-2024 Chronic Essential hypertension (15 sources) Benign essential hypertension; Translations: [Essential (primary) hypertension] Onset: 5 10-07-2020 Chronic Malaise and fatigue (1 source) Other fatigue; Translations: [Other fatigue] Onset: 1 Episodic Nausea and vomiting (14 sources) Nausea; Translations: [Nausea] 10-23-2021 Episodic Other circulatory disease (13 sources) Sensation of foreign body in throat; Translations: [Other specified symptoms and signs involving the circulatory and respiratory systems] 04-18-2022 Episodic Other gastrointestinal disorders (14 sources) Stool finding; Translations: [Other fecal abnormalities] 10-23-2021 Episodic Other liver diseases (2 sources) Hepatic fibrosis; Translations: [Hepatic fibrosis] 06-14-2024 Chronic Other nutritional; endocrine; and metabolic disorders (2 sources) Morbid obesity; Translations: [Morbid (severe) obesity due to excess calories] 06-14-2024 Chronic Other screening for suspected conditions (not mental disorders or infectious disease) (15 sources) Encounter for screening for lipoid disorders; Translations: [Ultrasonography of abdomen abnormal] Onset: 10-23-2021 Episodic Other upper respiratory infections (13 sources) Pharyngitis; Translations: [Acute pharyngitis, unspecified] 04-18-2022 Episodic Residual codes; unclassified (14 sources) Sleep apnea; Translations: [Sleep apnea, unspecified] 10-23-2021 Chronic Transient cerebral ischemia (14 sources) Cerebral ischemia; Translations: [Transient cerebral ischemic attack, unspecified] 10-28-2021 Chronic Comment on above: POSSIBLY HAD A TIA 2 017 Past or Other Problems Problem Classification Problem Date Documented Da te Episodic/Chronic Lymphadenitis (3 sources) Axillary lymphadenopathy; Translations: [Localized enlarged lymph nodes] Onset: 07-19-2024 01-03-2024 Episodic Nonspecific chest pain (12 sources) Chest pain; Translations: [Chest pain, unspecified] Onset: 06-27-2024 08-24-2022 Episodic Unclassified (13 sources) s/p anal fistulotomy 04-07-2022 Results Test Name Value Interpretation Reference Range Facility Absolute lymphocyte countOrd ered By: Angel Pang on 03-11-2025 Lymphocytes Auto (Unsp spec) [#/Vol] 1.34 10*3/uL 0.83-4.51 [facility] Absolute neutrophil countOrd ered By: Angel Pang on 03-11-2025 Neutrophils (Bld) [#/Vol] 2.7 10*3/uL 2.0-7.7 [facility] Anion gap in Serum or Plasma Ordered By: Angel Pang on 03-11-2025 Anion gap [Moles/Vol] 10 mmol/L 5-15 [facility] Automated lymphocyte count a s percentage of total leukocytesOrdered By: Angel Pang on 03-11-2025 Lymphocytes/100 WBC Auto (Unsp spec) 28.9 % 19-41 [facility] BUN/creatinine ratioOrdered By: Angel Pang on 03-11-2025 Urea nitrogen/Creatinine [Mass ratio] 25.5 mg/mg High 10-20 [facility] Basophil percentageOrdered B y: Angel Pang on 03-11-2025 Basophils/100 WBC (Bld) 0.6 % 0-1 [facility] Bilirubin, totalOrdered By: Angel Pang on 03-11-2025 Bilirubin [Mass/Vol] 1.26 mg/dL 0.00-1.30 [facility] CBC W/Diff, Automatedon 02-12-2024 Absolute Lymph 1.34 X10 3/uL Normal 0.83-4.51 [facility] Comment on above: Performed By: #### L 100.0100, L501.9985, L501.9520, L500.4100, L500.4050 #### [facility] [address] [place], [address] Absolute Neut 2.7 X10 3/uL Normal 2.0-7.7 [facility] Comment on above: Performed By: #### L 100.0100, L501.9985, L501.9520, L500.4100, L500.4050 #### [facility] [address] [place], [address] Basophils/100 WBC (Bld) 0.6 % Normal 0-1 [facility] Comment on above: Performed By: #### L 100.0100, L501.9985, L501.9520, L500.4100, L500.4050 #### [facility] [address] [place], [address] Eosinophils/100 WBC (Bld) 5.0 % Normal 0-5 [facility] Comment on above: Performed By: #### L 100.0100, L501.9985, L501.9520, L500.4100, L500.4050 #### [facility] [address] [place], [address] Erythrocyte distribution width (RBC) [Ratio] 12.6 % Normal 11.6-14.6 [facility] Comment on above: Performed By: #### L 100.0100, L501.9985, L501.9520, L500.4100, L500.4050 #### [facility] [address] [place], [address] Hematocrit (Bld) [Volume fraction] 41.2 % Normal 40-54 [facility] Comment on above: Performed By: #### L 100.0100, L501.9985, L501.9520, L500.4100, L500.4050 #### [facility] [address] [place], [address] Hemoglobin (Bld) [Mass/Vol] 14.1 g/dL Normal 13.0-16.5 [facility] Comment on above: Performed By: #### L 100.0100, L501.9985, L501.9520, L500.4100, L500.4050 #### [facility] [address] [place], [address] IG% 0.200 Normal 0.0-0.9 [facility] Comment on above: Result Comment: IG% - Immature Granulocytes (promyelocytes, myelocytes and metamyelocytes) > 1% indicates that a LEFT SHIFT is Present. Performed By: #### L 100.0100, L501.9985, L501.9520, L500.4100, L500.4050 #### [facility] [address] [place], [address] Lymphocytes/100 WBC (Bld) 28.9 % Normal 19-41 [facility] Comment on above: Performed By: #### L 100.0100, L501.9985, L501.9520, L500.4100, L500.4050 #### [facility] [address] [place], [address] MCH (RBC) [Entitic mass] 27.4 pg Normal 27.0-32.0 [facility] Comment on above: Performed By: #### L 100.0100, L501.9985, L501.9520, L500.4100, L500.4050 #### [facility] [address] [place], [address] MCHC (RBC) [Mass/Vol] 34.2 g/dL Normal 32-36 [facility] Comment on above: Performed By: #### L 100.0100, L501.9985, L501.9520, L500.4100, L500.4050 #### [facility] [address] [place], [address] MCV (RBC) [Entitic vol] 80.2 fL Normal 80-94 [facility] Comment on above: Performed By: #### L 100.0100, L501.9985, L501.9520, L500.4100, L500.4050 #### [facility] [address] [place], [address] Monocytes/100 WBC (Bld) 7.8 % Normal 0-10 [facility] Comment on above: Performed By: #### L 100.0100, L501.9985, L501.9520, L500.4100, L500.4050 #### [facility] [address] [place], [address] Neutrophils/100 WBC (Bld) 57.5 % Normal 47-70 [facility] Comment on above: Performed By: #### L 100.0100, L501.9985, L501.9520, L500.4100, L500.4050 #### [facility] [address] [place], [address] Nucleated RBC (Bld) [#/Vol] 0 10*3/uL Normal 0-5 [facility] Comment on above: Performed By: #### L 100.0100, L501.9985, L501.9520, L500.4100, L500.4050 #### [facility] [address] [place], [address] Platelet mean volume (Bld) [Entitic vol] 9.5 fL Normal 6.2-12.0 [facility] Comment on above: Performed By: #### L 100.0100, L501.9985, L501.9520, L500.4100, L500.4050 #### [facility] [address] [place], [address] Platelets (Bld) [#/Vol] 220 10*3/uL Normal 150-450 [facility] Comment on above: Performed By: #### L 100.0100, L501.9985, L501.9520, L500.4100, L500.4050 #### [facility] [address] [place], [address] RBC (Bld) [#/Vol] 5.14 10*6/uL Normal 4.6-6.2 [facility] Comment on above: Performed By: #### L 100.0100, L501.9985, L501.9520, L500.4100, L500.4050 #### [facility] [address] [place], [address] RDW SD 35.8 fl Normal 35.1-43.9 [facility] Comment on above: Performed By: #### L 100.0100, L501.9985, L501.9520, L500.4100, L500.4050 #### [facility] [address] [place], [address] WBC (Bld) [#/Vol] 4.6 10*3/uL Normal 4.4-11.0 [facility] Comment on above: Performed By: #### L 100.0100, L501.9985, L501.9520, L500.4100, L500.4050 #### [facility] [address] [place], [address] Calculated very low density lipoprotein (VLDL) cholesterol measurementOrdered By: Angel Pang on 03-11-2025 Calculated very low density lipoprotein (VLDL) cholesterol measurement 29 mg/dL 5-40 [facility] Carbon dioxide, total [Moles /volume] in Central venous bloodOrdered By: Angel Pang on 03-11-2025 CO2 [Moles/Vol] 26.1 mmol/L 21.0-32.0 [facility] Chloride assayOrdered By: Alexandru Pang on 03-11-2025 Chloride [Moles/Vol] 102 mmol/L 98-108 [facility] Comprehensive Metabolic Prof ilon 03-11-2025 Albumin [Mass/Vol] 4.3 g/dL Normal 3.5-5.0 [facility] Comment on above: Performed By: #### L 100.0100, L501.9985, L501.9520, L500.4100, L500.4050 #### [facility] [address] [place], [address] Albumin/Globulin [Mass ratio] 1.4 {ratio} Normal 0.9-2.4 [facility] Comment on above: Performed By: #### L 100.0100, L501.9985, L501.9520, L500.4100, L500.4050 #### [facility] [address] [place], [address] ALK PHOS 73 U/L Normal 40-129 [facility] Comment on above: Performed By: #### L 100.0100, L501.9985, L501.9520, L500.4100, L500.4050 #### [facility] [address] [place], [address] ALT [Catalytic activity/Vol] 33 U/L Normal <=46 [facility] Comment on above: Performed By: #### L 100.0100, L501.9985, L501.9520, L500.4100, L500.4050 #### [facility] [address] [place], [address] AST [Catalytic activity/Vol] 28 U/L Normal <=37 [facility] Comment on above: Performed By: #### L 100.0100, L501.9985, L501.9520, L500.4100, L500.4050 #### [facility] [address] [place], [address] Bilirubin [Mass/Vol] 1.26 mg/dL Normal 0.00-1.30 [facility] Comment on above: Performed By: #### L 100.0100, L501.9985, L501.9520, L500.4100, L500.4050 #### [facility] [address] [place], [address] BUN/CRE 25.5 RATIO High 10-20 [facility] Comment on above: Performed By: #### L 100.0100, L501.9985, L501.9520, L500.4100, L500.4050 #### [facility] [address] [place], [address] Calcium [Mass/Vol] 9.1 mg/dL Normal 7.6-11.0 [facility] Comment on above: Performed By: #### L 100.0100, L501.9985, L501.9520, L500.4100, L500.4050 #### [facility] [address] [place], [address] Chloride [Moles/Vol] 102 mmol/L Normal 98-108 [facility] Comment on above: Performed By: #### L 100.0100, L501.9985, L501.9520, L500.4100, L500.4050 #### [facility] [address] [place], [address] CO2 [Moles/Vol] 26.1 mmol/L Normal 21.0-32.0 [facility] Comment on above: Performed By: #### L 100.0100, L501.9985, L501.9520, L500.4100, L500.4050 #### [facility] [address] [place], [address] Creatinine [Mass/Vol] 0.76 mg/dL Normal 0.70-1.20 [facility] Comment on above: Performed By: #### L 100.0100, L501.9985, L501.9520, L500.4100, L500.4050 #### [facility] [address] [place], [address] GAP 10 Normal 5-15 [facility] Comment on above: Performed By: #### L 100.0100, L501.9985, L501.9520, L500.4100, L500.4050 #### [facility] [address] [place], [address] GFR/1.73 sq M.predicted among non-blacks MDRD (S/P/Bld) [Vol rate/Area] 112 mL/min/{1.73_m2} Normal >60 [facility] Comment on above: Result Comment: mL/m in/1.73m2 CKD-EPI Creatinine Equation (2020) Performed By: #### L 100.0100, L501.9985, L501.9520, L500.4100, L500.4050 #### [facility] [address] [place], [address] Globulin (S) [Mass/Vol] 3.1 g/dL Normal 2.2-4.2 [facility] Comment on above: Performed By: #### L 100.0100, L501.9985, L501.9520, L500.4100, L500.4050 #### [facility] [address] [place], [address] Glucose [Mass/Vol] 134 mg/dL High 70-99 [facility] Comment on above: Performed By: #### L 100.0100, L501.9985, L501.9520, L500.4100, L500.4050 #### [facility] [address] [place], [address] Potassium [Moles/Vol] 3.9 mmol/L Normal 3.3-5.1 [facility] Comment on above: Performed By: #### L 100.0100, L501.9985, L501.9520, L500.4100, L500.4050 #### [facility] [address] [place], [address] Sodium [Moles/Vol] 138 mmol/L Normal 133-145 [facility] Comment on above: Performed By: #### L 100.0100, L501.9985, L501.9520, L500.4100, L500.4050 #### [facility] [address] [place], [address] T PROT 7.4 g/dL Normal 5.9-8.4 [facility] Comment on above: Performed By: #### L 100.0100, L501.9985, L501.9520, L500.4100, L500.4050 #### [facility] [address] [place], [address] Urea nitrogen [Mass/Vol] 19 mg/dL Normal 4-19 [facility] Comment on above: Performed By: #### L 100.0100, L501.9985, L501.9520, L500.4100, L500.4050 #### [facility] [address] [place], [address] Eosinophil percentageOrdered By: Angel sanon 03-11-2025 Eosinophils/100 WBC (Bld) 5.0 % 0-5 [facility] Erythrocyte distribution wid th ratioOrdered By: [facility] 03-11-2025 Erythrocyte distribution width (RBC) [Ratio] 12.6 % 11.6-14.6 [facility] Erythrocyte distribution wid th standard deviationOrdered By: [facility] on 03-11-2025 Erythrocyte distribution width (RBC) [Ratio] 35.8 fl 35.1-43.9 [facility] Glomerular filtration rate ( GFR) estimation/1.73 sq m using serum, plasma, or whole bOrdered By: Angel Bird on 03-11-2025 GFR/1.73 sq M.predicted among non-blacks MDRD (S/P/Bld) [Vol rate/Area] 112 mL/min/{1.73_m2} >60 [facility] Comment on above: mL/min/1.73m2 CKD-EP I Creatinine Equation (2020) Hematocrit Auto (Bld) [Volum e fraction]Ordered By: Angel Pang on 03-11-2025 Hematocrit (Bld) [Volume fraction] 41.2 % 40-54 [facility] Hemoglobin A1con 03-11-2025 HbA1c (Bld) [Mass fraction] 7.7 % High <=5.6 [facility] Comment on above: Result Comment: Norm al < 5.7 % Prediabetic 5.7 - 6.4 % Diabetic >or= 6.5 % Please note range changes. Performed By: #### L 100.0100, L501.9985, L501.9520, L500.4100, L500.4050 #### [facility] [address] [place], [place], [id number] Hemoglobin A1c percentageOrd ered By: Angel Pang on 03-11-2025 HbA1c (Bld) [Mass fraction] 7.7 % High <5.7 [facility] Comment on above: Normal < 5.7 % Predi abetic 5.7 - 6.4 % Diabetic >or= 6.5 % Please note range changes. Hemoglobin measurementOrdere d By: Angel Pang on 03-11-2025 Hemoglobin (Bld) [Mass/Vol] 14.1 g/dL 13.0-16.5 [facility] Immature granulocytes/100 WB C Auto (Bld)Ordered By: Angel Pang on 03-11-2025 Immature granulocytes/100 WBC (Bld) 0.200 % 0.0-0.9 [facility] Comment on above: IG% - Immature Granu locytes (promyelocytes, myelocytes and metamyelocytes) > 1% indicates that a LEFT SHIFT is Present. LDL calc ser/plasOrdered By: Angel Pang on 03-11-2025 Cholesterol in LDL [Mass/Vol] 51 mg/dL [facility] Comment on above: Ucxegvshrm=634-340 m g/dL & Higher Xish=140 mg/dL or greater Laboratory - Chemistry and C hemistry - challengeOrdered By: Angel Pang on 03-11-2025 AST [Catalytic activity/Vol] 28 U/L <38 [facility] Lipid Profileon 03-11-2025 CHOL:HDL 3.49 Normal [facility] Comment on above: Performed By: #### L 100.0100, L501.9985, L501.9520, L500.4100, L500.4050 #### [facility] [address] [place], [place], [id number] ([address]) Cholesterol [Mass/Vol] 112 mg/dL Normal <=200 [facility] Comment on above: Result Comment: Chol esterol level, Desirable <200 mg/dL Borderline high cholesterol 200-239 mg/dL High cholesterol >=240 mg/dL Recommendations of the NCEP Adult Treatment Panel for the following risk-cutoff thresholds for the [place] population. Performed By: #### L 100.0100, L501.9985, L501.9520, L500.4100, L500.4050 #### [facility] [address] [place], [address] Cholesterol in HDL [Mass/Vol] 32 mg/dL Low [facility] Comment on above: Result Comment: Ryanne onal Cholesterol Education Program (NCEP) guidelines: <40 mg/dL: Low HDL-cholesterol (major risk factor for CHD) >= 60 mg/dL: High HDL-cholesterol (negative risk factor for CHD) HDL-cholesterol is affected by a number of factors, e.g. smoking, exercise, hormones, sex and age. Performed By: #### L 100.0100, L501.9985, L501.9520, L500.4100, L500.4050 #### [facility] [address] [place], [address] Cholesterol in LDL [Mass/Vol] 51 mg/dL Normal [facility] Comment on above: Result Comment: Bord cuubkd=283-390 mg/dL Higher Okqu=549 mg/dL or greater Performed By: #### L 100.0100, L501.9985, L501.9520, L500.4100, L500.4050 #### [facility] [address] [place], [address] Cholesterol in VLDL [Mass/Vol] 29 mg/dL Normal 5-40 [facility] Comment on above: Performed By: #### L 100.0100, L501.9985, L501.9520, L500.4100, L500.4050 #### [facility] [address] [place], [address] Triglyceride [Mass/Vol] 147 mg/dL Normal [facility] Comment on above: Result Comment: The drugs N-Acetylcysteine and Metamizole may falsely depress this assay. Normal range: <150 mg/dL Borderline High: 150-199 mg/dL High: 200-499 mg/dL Very High: >500 mg/dL Performed By: #### L 100.0100, L501.9985, L501.9520, L500.4100, L500.4050 #### [facility] [address] [place], [address] MCV (mean corpuscular volume ) determinationOrdered By: Angel Pang on 03-11-2025 MCV (RBC) [Entitic vol] 80.2 fL 80-94 [facility] Mean corpuscular hemoglobin (MCH) determinationOrdered By: Angel Pang on 03-11-2025 MCH (RBC) [Entitic mass] 27.4 pg 27.0-32.0 [facility] Mean corpuscular hemoglobin concentration (MCHC) determinationOrdered By: Angle Pang on 03-11-2025 MCHC (RBC) [Mass/Vol] 34.2 g/dL 32-36 [facility] Mean platelet volume determi nationOrdered By: Angel Pang on 03-11-2025 Platelet mean volume (Bld) [Entitic vol] 9.5 fL 6.2-12.0 [facility] Monocyte percentageOrdered B y: Angel Pang on 03-11-2025 Monocytes/100 WBC (Bld) 7.8 % 0-10 [facility] Neutrophil percentageOrdered By: Angel Pang on 03-11-2025 Neutrophils/100 WBC (Bld) 57.5 % 47-70 [facility] Nucleated red blood cell per centageOrdered By: Angel Pang on 03-11-2025 Nucleated RBC/100 WBC (Bld) [Ratio] 0 % 0-5 [facility] Platelet countOrdered By: Alexandru Pang on 03-11-2025 Platelets (Bld) [#/Vol] 220 10*3/uL 150-450 [facility] Potassium measurement (mass/ volume)Ordered By: Angel Pang on 03-11-2025 Potassium (Unsp spec) [Mass/Vol] 3.9 mmol/L 3.3-5.1 [facility] RBC Auto (Bld) [#/Vol]Ordere d By: Angel Pang on 03-11-2025 RBC (Bld) [#/Vol] 5.14 10*6/uL 4.6-6.2 [facility] Screening total cholesterol/ high density lipoprotein (HDL) cholesterol ratioOrdered By: Angel Pang on 03-11-2025 Cholesterol.total/Mary sterol in HDL [Mass ratio] 3.49 {ratio} [facility] Serum creatinine measurement (mass/volume)Ordered By: Angel Pang on 03-11-2025 Creatinine [Mass/Vol] 0.76 mg/dL 0.70-1.20 [facility] Serum globulin measurementOr dered By: Angel Pang 03-11-2025 Globulin (S) [Mass/Vol] 3.1 g/dL 2.2-4.2 [facility] Serum glucose measurement (m ass/volume)Ordered By: Angel Pang on 03-11-2025 Glucose [Mass/Vol] 134 mg/dL High 70-99 [facility] Serum or plasma alanine okeefe otransferase (ALT) measurementOrdered By: Angel Pang 03-11-2025 ALT [Catalytic activity/Vol] 33 U/L <47 [facility] Serum or plasma albumin livia urement (mass/volume)Ordered By: Angel Pang 03-11-2025 Albumin [Mass/Vol] 4.3 g/dL 3.5-5.0 [facility] Serum or plasma albumin/glob ulin mass ratioOrdered By: Angel Pang 03-11-2025 Albumin/Globulin [Mass ratio] 1.4 {ratio} 0.9-2.4 [facility] Serum or plasma alkaline ronni sphatase measurementOrdered By: Angel Pang 03-11-2025 ALP [Catalytic activity/Vol] 73 U/L 40-129 [facility] Serum or plasma calcium livia urement (mass/volume)Ordered By: Angel Pang 03-11-2025 Calcium [Mass/Vol] 9.1 mg/dL 7.6-11.0 [facility] Serum or plasma cholesterol in HDL measurement (mass/volume)Ordered By: Angel Pang 03-11-2025 Cholesterol in HDL [Mass/Vol] 32 mg/dL Low >40 [facility] Comment on above: National Cholesterol Education Program (NCEP) guidelines:<40 mg/dL: Low HDL-cholesterol (major risk factor for CHD)>= 60 mg/dL: High HDL-cholesterol (negative risk factor for CHD)HDL-cholesterol is affected by a number of factors, e.g. smoking, exercise, hormones, sex and age. Serum or plasma cholesterol measurement (mass/volume)Ordered By: Angel Pang on 03-11-2025 Cholesterol [Mass/Vol] 112 mg/dL <201 [facility] Comment on above: Cholesterol level, D esirable <200 mg/dLBorderline high cholesterol 200-239 mg/dLHigh cholesterol >=240 mg/dLRecommendations of the NCEP Adult Treatment Panel for the following risk-cutoff thresholds for the [place] population. Serum or plasma urea nitroge n measurement (mass/volume)Ordered By: Angel Pang on 03-11-2025 Urea nitrogen [Mass/Vol] 19 mg/dL 4-19 [facility] Sodium levelOrdered By: Angel Pang on 03-11-2025 Sodium [Moles/Vol] 138 mmol/L 133-145 [facility] TSH DL <= 0.005 mIU/L QnOrde red By: Angel Pang on 03-11-2025 TSH Qn 2.950 uIU/mL 0.300-4.20 0 [facility] Thyroid Stim Hormone (TSH)on 03-11-2025 TSH 2.950 uIU/mL Normal 0.300-4.20 0 [facility] Comment on above: Performed By: #### L 100.0100, L501.9985, L501.9520, L500.4100, L500.4050 #### [facility] [place], [address] Total proteinOrdered By: Angel Pang on 03-11-2025 Protein [Mass/Vol] 7.4 g/dL 5.9-8.4 [facility] Triglycerides measurementOrd ered By: Angel Pang on 03-11-2025 Triglyceride [Mass/Vol] 147 mg/dL <199 [facility] Comment on above: The drugs N-Acetylcy steine and Metamizole may falsely depress this assay. Normal range: <150 mg/dLBorderline High: 150-199 mg/dLHigh: 200-499 mg/dLVery High: >500 mg/dL White blood cell (WBC) count Ordered By: Angel Pang on 03-11-2025 WBC (Bld) [#/Vol] 4.6 10*3/uL 4.4-11.0 [facility] Absolute lymphocyte countOrd ered By: Angel Pang on 12-07-2024 Lymphocytes Auto (Unsp spec) [#/Vol] 1.40 10*3/uL 0.83-4.51 [facility] Absolute neutrophil countOrd ered By: Angel Pang on 12-07-2024 Neutrophils (Bld) [#/Vol] 2.8 10*3/uL 2.0-7.7 [facility] Anion gap in Serum or Plasma Ordered By: Angel Pang on 12-07-2024 Anion gap [Moles/Vol] 16 mmol/L High 5-15 [facility] Automated lymphocyte count a s percentage of total leukocytesOrdered By: Angel Bird on 12-07-2024 Lymphocytes/100 WBC Auto (Unsp spec) 28.6 % 19-41 [facility] BUN/creatinine ratioOrdered By: Angel Bird on 12-07-2024 Urea nitrogen/Creatinine [Mass ratio] 29.0 mg/mg High 10-20 [facility] Basophil percentageOrdered B y: Angel Bird on 12-07-2024 Basophils/100 WBC (Bld) 0.4 % 0-1 [facility] Bilirubin, totalOrdered By: Angel Bird on 12-07-2024 Bilirubin [Mass/Vol] 1.68 mg/dL High 0.00-1.30 [facility] CBC W/Diff, Automatedon 11-11 Absolute Lymph 1.40 X10 3/uL Normal 0.83-4.51 [facility] Comment on above: Performed By: #### L 100.0100, L501.9985, L501.9520, L500.4100, L500.4050 #### [facility] [address] [place], [address] Absolute Neut 2.8 X10 3/uL Normal 2.0-7.7 [facility] Comment on above: Performed By: #### L 100.0100, L501.9985, L501.9520, L500.4100, L500.4050 #### [facility] [address] [place], [address] Basophils/100 WBC (Bld) 0.4 % Normal 0-1 [facility] Comment on above: Performed By: #### L 100.0100, L501.9985, L501.9520, L500.4100, L500.4050 #### [facility] [address] [place], [address] Eosinophils/100 WBC (Bld) 4.7 % Normal 0-5 [facility] Comment on above: Performed By: #### L 100.0100, L501.9985, L501.9520, L500.4100, L500.4050 #### [facility] [address] [place], [address] Erythrocyte distribution width (RBC) [Ratio] 12.8 % Normal 11.6-14.6 [facility] Comment on above: Performed By: #### L 100.0100, L501.9985, L501.9520, L500.4100, L500.4050 #### [facility] [address] [place], [address] Hematocrit (Bld) [Volume fraction] 43.4 % Normal 40-54 [facility] Comment on above: Performed By: #### L 100.0100, L501.9985, L501.9520, L500.4100, L500.4050 #### [facility] [address] [place], [address] Hemoglobin (Bld) [Mass/Vol] 14.7 g/dL Normal 13.0-16.5 [facility] Comment on above: Performed By: #### L 100.0100, L501.9985, L501.9520, L500.4100, L500.4050 #### [facility] [address] [place], [address] IG% 0.400 Normal 0.0-0.9 [facility] Comment on above: Result Comment: IG% - Immature Granulocytes (promyelocytes, myelocytes and metamyelocytes) > 1% indicates that a LEFT SHIFT is Present. Performed By: #### L 100.0100, L501.9985, L501.9520, L500.4100, L500.4050 #### [facility] [address] [place], [address] Lymphocytes/100 WBC (Bld) 28.6 % Normal 19-41 [facility] Comment on above: Performed By: #### L 100.0100, L501.9985, L501.9520, L500.4100, L500.4050 #### [facility] [address] [place], [address] MCH (RBC) [Entitic mass] 26.9 pg Low 27.0-32.0 [facility] Comment on above: Performed By: #### L 100.0100, L501.9985, L501.9520, L500.4100, L500.4050 #### [facility] [address] [place], [address] MCHC (RBC) [Mass/Vol] 33.9 g/dL Normal 32-36 [facility] Comment on above: Performed By: #### L 100.0100, L501.9985, L501.9520, L500.4100, L500.4050 #### [facility] [address] [place], [address] MCV (RBC) [Entitic vol] 79.5 fL Low 80-94 [facility] Comment on above: Performed By: #### L 100.0100, L501.9985, L501.9520, L500.4100, L500.4050 #### [facility] [address] [place], [address] Monocytes/100 WBC (Bld) 8.2 % Normal 0-10 [facility] Comment on above: Performed By: #### L 100.0100, L501.9985, L501.9520, L500.4100, L500.4050 #### [facility] [address] [place], [address] Neutrophils/100 WBC (Bld) 57.7 % Normal 47-70 [facility] Comment on above: Performed By: #### L 100.0100, L501.9985, L501.9520, L500.4100, L500.4050 #### [facility] [address] [place], [address] Nucleated RBC (Bld) [#/Vol] 0 10*3/uL Normal 0-5 [facility] Comment on above: Performed By: #### L 100.0100, L501.9985, L501.9520, L500.4100, L500.4050 #### [facility] [address] [place], [address] Platelet mean volume (Bld) [Entitic vol] 9.3 fL Normal 6.2-12.0 [facility] Comment on above: Performed By: #### L 100.0100, L501.9985, L501.9520, L500.4100, L500.4050 #### [facility] [address] [place], [address] Platelets (Bld) [#/Vol] 246 10*3/uL Normal 150-450 [facility] Comment on above: Performed By: #### L 100.0100, L501.9985, L501.9520, L500.4100, L500.4050 #### [facility] [address] [place], [address] RBC (Bld) [#/Vol] 5.46 10*6/uL Normal 4.6-6.2 [facility] Comment on above: Performed By: #### L 100.0100, L501.9985, L501.9520, L500.4100, L500.4050 #### [facility] [address] [place], [address] RDW SD 36.0 fl Normal 35.1-43.9 [facility] Comment on above: Performed By: #### L 100.0100, L501.9985, L501.9520, L500.4100, L500.4050 #### [facility] [address] [place], [address] WBC (Bld) [#/Vol] 4.9 10*3/uL Normal 4.4-11.0 [facility] Comment on above: Performed By: #### L 100.0100, L501.9985, L501.9520, L500.4100, L500.4050 #### [facility] [address] [place], [address] Carbon dioxide, total [Moles /volume] in Central venous bloodOrdered By: Angel Pang on 12-07-2024 CO2 [Moles/Vol] 22.6 mmol/L 21.0-32.0 [facility] Chloride assayOrdered By: Alexandru Pang on 12-07-2024 Chloride [Moles/Vol] 99 mmol/L 98-108 [facility] Comprehensive Metabolic Prof ilon 12-07-2024 Albumin [Mass/Vol] 4.6 g/dL Normal 3.5-5.0 [facility] Comment on above: Order Comment: LIPID Performed By: #### L 100.0100, L501.9985, L501.9520, L500.4100, L500.4050 #### [facility] [address] [place], [address] Albumin/Globulin [Mass ratio] 1.3 {ratio} Normal 0.9-2.4 [facility] Comment on above: Order Comment: LIPID Performed By: #### L 100.0100, L501.9985, L501.9520, L500.4100, L500.4050 #### [facility] [address] [place], [address] ALK PHOS 90 U/L Normal 40-129 [facility] Comment on above: Order Comment: LIPID Performed By: #### L 100.0100, L501.9985, L501.9520, L500.4100, L500.4050 #### [facility] [address] [place], [address] ALT [Catalytic activity/Vol] 50 U/L High <=46 [facility] Comment on above: Order Comment: LIPID Performed By: #### L 100.0100, L501.9985, L501.9520, L500.4100, L500.4050 #### [facility] [address] [place], [address] AST [Catalytic activity/Vol] 37 U/L Normal <=37 [facility] Comment on above: Order Comment: LIPID Result Comment: Hemo lysis present, Results??could be affected. ?? Performed By: #### L 100.0100, L501.9985, L501.9520, L500.4100, L500.4050 #### [facility] [address] [place], [address] Bilirubin [Mass/Vol] 1.68 mg/dL High 0.00-1.30 [facility] Comment on above: Order Comment: LIPID Performed By: #### L 100.0100, L501.9985, L501.9520, L500.4100, L500.4050 #### [facility] [address] [place], [address] BUN/CRE 29.0 RATIO High 10-20 [facility] Comment on above: Order Comment: LIPID Performed By: #### L 100.0100, L501.9985, L501.9520, L500.4100, L500.4050 #### [facility] [address] [place], [address] Calcium [Mass/Vol] 9.5 mg/dL Normal 7.6-11.0 [facility] Comment on above: Order Comment: LIPID Performed By: #### L 100.0100, L501.9985, L501.9520, L500.4100, L500.4050 #### [facility] [address] [place], [address] Chloride [Moles/Vol] 99 mmol/L Normal 98-108 [facility] Comment on above: Order Comment: LIPID Performed By: #### L 100.0100, L501.9985, L501.9520, L500.4100, L500.4050 #### [facility] [address] [place], [address] CO2 [Moles/Vol] 22.6 mmol/L Normal 21.0-32.0 [facility] Comment on above: Order Comment: LIPID Performed By: #### L 100.0100, L501.9985, L501.9520, L500.4100, L500.4050 #### [facility] [address] [place], [address] Creatinine [Mass/Vol] 0.81 mg/dL Normal 0.70-1.20 [facility] Comment on above: Order Comment: LIPID Performed By: #### L 100.0100, L501.9985, L501.9520, L500.4100, L500.4050 #### [facility] [address] [place], [address] GAP 16 High 5-15 [facility] Comment on above: Order Comment: LIPID Performed By: #### L 100.0100, L501.9985, L501.9520, L500.4100, L500.4050 #### [facility] [address] [place], [address] GFR/1.73 sq M.predicted among non-blacks MDRD (S/P/Bld) [Vol rate/Area] 109 mL/min/{1.73_m2} Normal >60 [facility] Comment on above: Order Comment: LIPID Result Comment: mL/m in/1.73m2 CKD-EPI Creatinine Equation (2020) Performed By: #### L 100.0100, L501.9985, L501.9520, L500.4100, L500.4050 #### [facility] [address] [place], [address] Globulin (S) [Mass/Vol] 3.5 g/dL Normal 2.2-4.2 [facility] Comment on above: Order Comment: LIPID Performed By: #### L 100.0100, L501.9985, L501.9520, L500.4100, L500.4050 #### [facility] [address] [place], [address] Glucose [Mass/Vol] 176 mg/dL High 70-99 [facility] Comment on above: Order Comment: LIPID Performed By: #### L 100.0100, L501.9985, L501.9520, L500.4100, L500.4050 #### [facility] [address] [place], [address] Potassium [Moles/Vol] 3.8 mmol/L Normal 3.3-5.1 [facility] Comment on above: Order Comment: LIPID Result Comment: Hemo lysis present, Results??could be affected. ?? Performed By: #### L 100.0100, L501.9985, L501.9520, L500.4100, L500.4050 #### [facility] [address] [place], [address] Sodium [Moles/Vol] 137 mmol/L Normal 133-145 [facility] Comment on above: Order Comment: LIPID Performed By: #### L 100.0100, L501.9985, L501.9520, L500.4100, L500.4050 #### [facility] [address] [place], [address] T PROT 8.1 g/dL Normal 5.9-8.4 [facility] Comment on above: Order Comment: LIPID Performed By: #### L 100.0100, L501.9985, L501.9520, L500.4100, L500.4050 #### [facility] [address] [place], [address] Urea nitrogen [Mass/Vol] 24 mg/dL High 4-19 [facility] Comment on above: Order Comment: LIPID Performed By: #### L 100.0100, L501.9985, L501.9520, L500.4100, L500.4050 #### [facility] [address] [place], [place], [address] Eosinophil percentageOrdered By: Angel Pang on 12-07-2024 Eosinophils/100 WBC (Bld) 4.7 % 0-5 [facility] Erythrocyte distribution wid th ratioOrdered By: Angel Pang on 12-07-2024 Erythrocyte distribution width (RBC) [Ratio] 12.8 % 11.6-14.6 [facility] Erythrocyte distribution wid th standard deviationOrdered By: Angel Pang on 12-07-2024 Erythrocyte distribution width (RBC) [Entitic vol] 36.0 fL 35.1-43.9 [facility] Erythrocyte distribution width (RBC) [Ratio] 36.0 fl 35.1-43.9 [facility] GFR/1.73 sq M.predicted merced g non-blacks MDRD (S/P/Bld) [Vol rate/Area]Ordered By: Angel Pang on 12-07-2024 Estimated GFR (MDRD) Non-Af Amer 109 >60 [facility] Comment on above: mL/min/1.73m2 CKD-EP I Creatinine Equation (2020) Glomerular filtration rate ( GFR) estimation/1.73 sq m using serum, plasma, or whole bOrdered By: Angel Pang on 12-07-2024 GFR/1.73 sq M.predicted among non-blacks MDRD (S/P/Bld) [Vol rate/Area] 109 mL/min/{1.73_m2} >60 [facility] Comment on above: mL/min/1.73m2 CKD-EP I Creatinine Equation (2020) Hematocrit Auto (Bld) [Volum e fraction]Ordered By: Angel Pang on 12-07-2024 Hematocrit (Bld) [Volume fraction] 43.4 % 40-54 [facility] Hemoglobin A1con 12-07-2024 HbA1c (Bld) [Mass fraction] 7.9 % Normal <=5.6 [facility] Comment on above: Performed By: #### L 100.0100, L501.9985, L501.9520, L500.4100, L500.4050 #### [facility] [address] [place], [address] Hemoglobin A1c percentageOrd ered By: Angel Pang on 12-07-2024 HbA1c (Bld) [Mass fraction] 7.9 % >5.7 [facility] Hemoglobin measurementOrdere d By: Angel Pang on 12-07-2024 Hemoglobin (Bld) [Mass/Vol] 14.7 g/dL 13.0-16.5 [facility] Immature granulocytes/100 WB C Auto (Bld)Ordered By: Angel Pang on 12-07-2024 Immature granulocytes/100 WBC (Bld) 0.400 % 0.0-0.9 [facility] Comment on above: IG% - Immature Granu locytes (promyelocytes, myelocytes and metamyelocytes) > 1% indicates that a LEFT SHIFT is Present. Laboratory - Chemistry and C hemistry - challengeOrdered By: Angel Pang on 12-07-2024 AST [Catalytic activity/Vol] 37 U/L <38 [facility] Comment on above: Hemolysis present, R esults could be affected. Lymphocytes Auto (Unsp spec) [#/Vol]Ordered By: Angel Pang on 12-07-2024 Lymphocytes (Bld) [#/Vol] 1.40 10*3/uL 0.83-4.51 [facility] Lymphocytes/100 WBC Auto (Un sp spec)Ordered By: Angel Pang on 12-07-2024 Lymphocytes/100 WBC (Bld) 28.6 % 19-41 [facility] MCV (mean corpuscular volume ) determinationOrdered By: Angel Pang on 12-07-2024 MCV (RBC) [Entitic vol] 79.5 fL Low 80-94 [facility] Mean corpuscular hemoglobin (MCH) determinationOrdered By: Angel Pang on 12-07-2024 MCH (RBC) [Entitic mass] 26.9 pg Low 27.0-32.0 [facility] Mean corpuscular hemoglobin concentration (MCHC) determinationOrdered By: Angel Pang on 12-07-2024 MCHC (RBC) [Mass/Vol] 33.9 g/dL 32-36 [facility] Mean platelet volume determi nationOrdered By: Angel Pang on 12-07-2024 Platelet mean volume (Bld) [Entitic vol] 9.3 fL 6.2-12.0 [facility] Monocyte percentageOrdered B y: Angel Pang on 12-07-2024 Monocytes/100 WBC (Bld) 8.2 % 0-10 [facility] Neutrophil percentageOrdered By: Angel Pang on 12-07-2024 Neutrophils/100 WBC (Bld) 57.7 % 47-70 [facility] Nucleated red blood cell per centageOrdered By: Angel Pang on 12-07-2024 Nucleated RBC/100 WBC (Bld) [Ratio] 0 % 0-5 [facility] Platelet countOrdered By: Alexandru Pang on 12-07-2024 Platelets (Bld) [#/Vol] 246 10*3/uL 150-450 [facility] Potassium (Unsp spec) [Mass/ Vol]Ordered By: Angel Pang on 12-07-2024 Potassium [Moles/Vol] 3.8 mmol/L 3.3-5.1 [facility] Comment on above: Hemolysis present, R esults could be affected. Potassium measurement (mass/ volume)Ordered By: Angel Pang on 12-07-2024 Potassium (Unsp spec) [Mass/Vol] 3.8 mmol/L 3.3-5.1 [facility] Comment on above: Hemolysis present, R esults could be affected. RBC Auto (Bld) [#/Vol]Ordere d By: Angel Pang on 12-07-2024 RBC (Bld) [#/Vol] 5.46 10*6/uL 4.6-6.2 [facility] Serum creatinine measurement (mass/volume)Ordered By: Angel Pang on 12-07-2024 Creatinine [Mass/Vol] 0.81 mg/dL 0.70-1.20 [facility] Serum globulin measurementOr dered By: Angel Pang on 12-07-2024 Globulin (S) [Mass/Vol] 3.5 g/dL 2.2-4.2 [facility] Serum glucose measurement (m ass/volume)Ordered By: Angel Pang on 12-07-2024 Glucose [Mass/Vol] 176 mg/dL High 70-99 [facility] Serum or plasma alanine okeefe otransferase (ALT) measurementOrdered By: Angel Pang 12-07-2024 ALT [Catalytic activity/Vol] 50 U/L High <47 [facility] Serum or plasma albumin livia urement (mass/volume)Ordered By: Angel Pang 12-07-2024 Albumin [Mass/Vol] 4.6 g/dL 3.5-5.0 [facility] Serum or plasma albumin/glob ulin mass ratioOrdered By: Angel Pang 12-07-2024 Albumin/Globulin [Mass ratio] 1.3 {ratio} 0.9-2.4 [facility] Serum or plasma alkaline ronni sphatase measurementOrdered By: Angel Pang 12-07-2024 ALP [Catalytic activity/Vol] 90 U/L 40-129 [facility] Serum or plasma calcium livia urement (mass/volume)Ordered By: Angel Pang 12-07-2024 Calcium [Mass/Vol] 9.5 mg/dL 7.6-11.0 [facility] Serum or plasma urea nitroge n measurement (mass/volume)Ordered By: Angel Pang 12-07-2024 Urea nitrogen [Mass/Vol] 24 mg/dL High 4-19 [facility] Sodium levelOrdered By: Angel Pang 12-07-2024 Sodium [Moles/Vol] 137 mmol/L 133-145 [facility] TSH DL <= 0.005 mIU/L QnOrde red By: Angel Pang on 12-07-2024 Thyroid Stimulating Hormone (TSH) 2.420 uIU/mL 0.300-4.20 0 [facility] TSH Qn 2.420 uIU/mL 0.300-4.20 0 [facility] Thyroid Stim Hormone (TSH)on 12-07-2024 TSH 2.420 uIU/mL Normal 0.300-4.20 0 [facility] Comment on above: Performed By: #### L 100.0100, L501.9985, L501.9520, L500.4100, L500.4050 #### [facility] [address] [place], [address] Total proteinOrdered By: Angel Pang on 12-07-2024 Protein [Mass/Vol] 8.1 g/dL 5.9-8.4 [facility] White blood cell (WBC) count Ordered By: Angel Pang on 12-07-2024 WBC (Bld) [#/Vol] 4.9 10*3/uL 4.4-11.0 [facility] Basic Metabolic Profile (BMP )on 09-07-2024 BUN/CRE 23.1 RATIO High 10-20 [facility] Comment on above: Performed By: #### L 100.0100, L501.9985, L501.9520, L500.4100, L500.4050 #### [facility] [address] [place], [address] CA,Total 9.2 mg/dL Normal 8.5-10.1 [facility] Comment on above: Performed By: #### L 100.0100, L501.9985, L501.9520, L500.4100, L500.4050 #### [facility] [address] [place], [address] Chloride [Moles/Vol] 104 mmol/L Normal 98-107 [facility] Comment on above: Performed By: #### L 100.0100, L501.9985, L501.9520, L500.4100, L500.4050 #### [facility] [address] [place], [address] CO2 [Moles/Vol] 29.0 mmol/L Normal 21.0-32.0 [facility] Comment on above: Performed By: #### L 100.0100, L501.9985, L501.9520, L500.4100, L500.4050 #### [facility] [address] [place], [address] Creatinine [Mass/Vol] 0.91 mg/dL Normal 0.70-1.30 [facility] Comment on above: Result Comment: The validity of the calculated GFR GFRAA in patients over 70 years has not been determined. Clinical correlation is essential. Performed By: #### L 100.0100, L501.9985, L501.9520, L500.4100, L500.4050 #### [facility] [address] [place], [address] EST GFR - AA 115 mL/min Normal >60 [facility] Comment on above: Result Comment: Afri can Welsh GFR Calc Performed By: #### L 100.0100, L501.9985, L501.9520, L500.4100, L500.4050 #### [facility] [address] [place], [address] GAP 3 Low 5-15 [facility] Comment on above: Performed By: #### L 100.0100, L501.9985, L501.9520, L500.4100, L500.4050 #### [facility] [address] [place], [address] GFR/1.73 sq M.predicted among non-blacks MDRD (S/P/Bld) [Vol rate/Area] 95 mL/min/{1.73_m2} Normal >60 [facility] Comment on above: Result Comment: Non- GFR Calc Performed By: #### L 100.0100, L501.9985, L501.9520, L500.4100, L500.4050 #### [facility] [address] [place], [address] Glucose [Mass/Vol] 187 mg/dL High 74-106 [facility] Comment on above: Result Comment: Fast ing Glucose result greater than or equal to 126 mg/dL suggests DIABETES MELLITUS per A.D.A. criteria. Performed By: #### L 100.0100, L501.9985, L501.9520, L500.4100, L500.4050 #### [facility] [address] [place], [address] Potassium [Moles/Vol] 3.8 mmol/L Normal 3.5-5.1 [facility] Comment on above: Performed By: #### L 100.0100, L501.9985, L501.9520, L500.4100, L500.4050 #### [facility] [address] [place], [address] Sodium [Moles/Vol] 136 mmol/L Normal 136-145 [facility] Comment on above: Performed By: #### L 100.0100, L501.9985, L501.9520, L500.4100, L500.4050 #### [facility] [address] [place], [address] Urea nitrogen [Mass/Vol] 21 mg/dL High 7-18 [facility] Comment on above: Performed By: #### L 100.0100, L501.9985, L501.9520, L500.4100, L500.4050 #### [facility] [address] [place], [address] Blood urea nitrogen (BUN)/cr eatinine ratioOrdered By: Angel Pang on 09-07-2024 Urea nitrogen/Creatinine [Mass ratio] 23.1 mg/mg High 10-20 [facility] Carbon dioxide measurementOr dered By: Angel Pang on 09-07-2024 CO2 [Moles/Vol] 29.0 mmol/L 21.0-32.0 [facility] Chloride measurementOrdered By: Angel Pang on 09-07-2024 Chloride [Moles/Vol] 104 mmol/L 98-107 [facility] Estimated glomerular filtrat ion rate (GFR) AmericanOrdered By: Angel Pang on 09-07-2024 Estimated GFR (MDRD) Amer 115 mL/min >60 [facility] Comment on above: GFR Calc Glomerular filtration rate ( GFR) estimationOrdered By: Angel Pang on 09-07-2024 Estimated GFR (MDRD) Non-Af Amer 95 mL/min >60 [facility] Comment on above: Non- GFR Calc Glucose measurementOrdered B y: Angel Pang on 09-07-2024 Glucose [Mass/Vol] 187 mg/dL High 74-106 [facility] Comment on above: Fasting Glucose resu lt greater than or equal to 126 mg/dL suggests DIABETES MELLITUS per A.D.A. criteria. Potassium measurementOrdered By: Angel Pang 09-07-2024 Potassium [Moles/Vol] 3.8 mmol/L 3.5-5.1 [facility] Serum anion gap measurementO rdered By: Angel Pang 09-07-2024 Anion gap [Moles/Vol] 3 mmol/L Low 5-15 [facility] Serum or plasma calcium livia urement (mass/volume)Ordered By: Angel Pang 09-07-2024 Calcium [Mass/Vol] 9.2 mg/dL 8.5-10.1 [facility] Serum or plasma creatinine m easurement (mass/volume)Ordered By: Angel Pang 09-07-2024 Creatinine [Mass/Vol] 0.91 mg/dL 0.70-1.30 [facility] Comment on above: The validity of the calculated GFR & GFRAA in patients over 70 years has not been determined. Clinical correlation is essential. Serum or plasma urea nitroge n measurement (mass/volume)Ordered By: Angel Pang 09-07-2024 Urea nitrogen [Mass/Vol] 21 mg/dL High 7-18 [facility] Sodium levelOrdered By: Angel Pang 09-07-2024 Sodium [Moles/Vol] 136 mmol/L 136-145 [facility] Absolute neutrophil countOrd ered By: Angel Pang on 08-29-2024 Neutrophils (Bld) [#/Vol] 3.2 10*3/uL 2.0-7.7 [facility] Albumin to globulin ratioOrd ered By: Angel Pang on 08-29-2024 Albumin/Globulin [Mass ratio] 0.9 {ratio} 0.9-2.4 [facility] Basophil percentageOrdered B y: Angel Pang on 08-29-2024 Basophils/100 WBC (Bld) 1.0 % 0-1 [facility] Bilirubin, totalOrdered By: Angel Pang on 08-29-2024 Bilirubin [Mass/Vol] 1.20 mg/dL High 0.20-1.00 [facility] Comment on above: For patients on eltr ombopag therapy, use of Dimension [place] TBIL is not recommended. Blood urea nitrogen (BUN)/cr eatinine ratioOrdered By: Angel Pang on 08-29-2024 Urea nitrogen/Creatinine [Mass ratio] 24.2 mg/mg High 10-20 [facility] CBC W/Diff, Automatedon 08-12 Absolute Lymph 1.20 X10 3/uL Normal 0.83-4.51 [facility] Comment on above: Performed By: #### L 100.0100, L501.9985, L501.9520, L500.4100, L500.4050 #### [facility] [address] [place], [address] Absolute Neut 3.2 X10 3/uL Normal 2.0-7.7 [facility] Comment on above: Performed By: #### L 100.0100, L501.9985, L501.9520, L500.4100, L500.4050 #### [facility] [address] [place], [address] Basophils/100 WBC (Bld) 1.0 % Normal 0-1 [facility] Comment on above: Performed By: #### L 100.0100, L501.9985, L501.9520, L500.4100, L500.4050 #### [facility] [address] [place], [address] Eosinophils/100 WBC (Bld) 4.9 % Normal 0-5 [facility] Comment on above: Performed By: #### L 100.0100, L501.9985, L501.9520, L500.4100, L500.4050 #### [facility] [address] [place], [address] Erythrocyte distribution width (RBC) [Ratio] 12.8 % Normal 11.6-14.6 [facility] Comment on above: Performed By: #### L 100.0100, L501.9985, L501.9520, L500.4100, L500.4050 #### [facility] [address] [place], [address] Hematocrit (Bld) [Volume fraction] 40.4 % Normal 40-54 [facility] Comment on above: Performed By: #### L 100.0100, L501.9985, L501.9520, L500.4100, L500.4050 #### [facility] [address] [place], [address] Hemoglobin (Bld) [Mass/Vol] 13.7 g/dL Normal 13.0-16.5 [facility] Comment on above: Performed By: #### L 100.0100, L501.9985, L501.9520, L500.4100, L500.4050 #### [facility] [address] [place], [address] IG% 1.400 High 0.0-0.9 [facility] Comment on above: Result Comment: IG% - Immature Granulocytes (promyelocytes, myelocytes and metamyelocytes) > 1% indicates that a LEFT SHIFT is Present. Performed By: #### L 100.0100, L501.9985, L501.9520, L500.4100, L500.4050 #### [facility] [address] [place], [address] Lymphocytes/100 WBC (Bld) 23.3 % Normal 19-41 [facility] Comment on above: Performed By: #### L 100.0100, L501.9985, L501.9520, L500.4100, L500.4050 #### [facility] [address] [place], [address] MCH (RBC) [Entitic mass] 27.0 pg Normal 27.0-32.0 [facility] Comment on above: Performed By: #### L 100.0100, L501.9985, L501.9520, L500.4100, L500.4050 #### [facility] [address] [place], [address] MCHC (RBC) [Mass/Vol] 33.9 g/dL Normal 32-36 [facility] Comment on above: Performed By: #### L 100.0100, L501.9985, L501.9520, L500.4100, L500.4050 #### [facility] [address] [place], [address] MCV (RBC) [Entitic vol] 79.7 fL Low 80-94 [facility] Comment on above: Performed By: #### L 100.0100, L501.9985, L501.9520, L500.4100, L500.4050 #### [facility] [address] [place], [address] Monocytes/100 WBC (Bld) 7.2 % Normal 0-10 [facility] Comment on above: Performed By: #### L 100.0100, L501.9985, L501.9520, L500.4100, L500.4050 #### [facility] [address] [place], [address] Neutrophils/100 WBC (Bld) 62.2 % Normal 47-70 [facility] Comment on above: Performed By: #### L 100.0100, L501.9985, L501.9520, L500.4100, L500.4050 #### [facility] [address] [place], [address] Nucleated RBC (Bld) [#/Vol] 0 10*3/uL Normal 0-5 [facility] Comment on above: Performed By: #### L 100.0100, L501.9985, L501.9520, L500.4100, L500.4050 #### [facility] [address] [place], [address] Platelet mean volume (Bld) [Entitic vol] 9.3 fL Normal 6.2-12.0 [facility] Comment on above: Performed By: #### L 100.0100, L501.9985, L501.9520, L500.4100, L500.4050 #### [facility] [address] [place], [address] Platelets (Bld) [#/Vol] 289 10*3/uL Normal 150-450 [facility] Comment on above: Performed By: #### L 100.0100, L501.9985, L501.9520, L500.4100, L500.4050 #### [facility] [address] [place], [address] RBC (Bld) [#/Vol] 5.07 10*6/uL Normal 4.6-6.2 [facility] Comment on above: Performed By: #### L 100.0100, L501.9985, L501.9520, L500.4100, L500.4050 #### [facility] [address] [place], [address] RDW SD 36.2 fl Normal 35.1-43.9 [facility] Comment on above: Performed By: #### L 100.0100, L501.9985, L501.9520, L500.4100, L500.4050 #### [facility] [address] [place], [address] WBC (Bld) [#/Vol] 5.2 10*3/uL Normal 4.4-11.0 [facility] Comment on above: Performed By: #### L 100.0100, L501.9985, L501.9520, L500.4100, L500.4050 #### [facility] [address] [place], [place], [address] Carbon dioxide measurementOr dered By: Angel Pang on 08-29-2024 CO2 [Moles/Vol] 33.0 mmol/L High 21.0-32.0 [facility] Chloride measurementOrdered By: Angel Pang on 08-29-2024 Chloride [Moles/Vol] 99 mmol/L 98-107 [facility] Comprehensive Metabolic Prof ilon 08-29-2024 Albumin [Mass/Vol] 3.5 g/dL Normal 3.2-5.0 [facility] Comment on above: Performed By: #### L 100.0100, L501.9985, L501.9520, L500.4100, L500.4050 #### [facility] [address] [place], [place], [id number] Albumin/Globulin [Mass ratio] 0.9 {ratio} Normal 0.9-2.4 [facility] Comment on above: Performed By: #### L 100.0100, L501.9985, L501.9520, L500.4100, L500.4050 #### [facility] [address] [place], [address] ALK P 77 U/L Normal 45-117 [facility] Comment on above: Performed By: #### L 100.0100, L501.9985, L501.9520, L500.4100, L500.4050 #### [facility] [address] [place], [address] ALT [Catalytic activity/Vol] 58 U/L Normal 16-61 [facility] Comment on above: Performed By: #### L 100.0100, L501.9985, L501.9520, L500.4100, L500.4050 #### [facility] [address] [place], [address] AST [Catalytic activity/Vol] 28 U/L Normal 15-37 [facility] Comment on above: Performed By: #### L 100.0100, L501.9985, L501.9520, L500.4100, L500.4050 #### [facility] [address] [place], [address] Bilirubin [Mass/Vol] 1.20 mg/dL High 0.20-1.00 [facility] Comment on above: Result Comment: For patients on eltrombopag therapy, use of Dimension [place] TBIL is not recommended. Performed By: #### L 100.0100, L501.9985, L501.9520, L500.4100, L500.4050 #### [facility] [address] [place], [address] BUN/CRE 24.2 RATIO High 10-20 [facility] Comment on above: Performed By: #### L 100.0100, L501.9985, L501.9520, L500.4100, L500.4050 #### [facility] [address] [place], [address] CA,Total 8.9 mg/dL Normal 8.5-10.1 [facility] Comment on above: Performed By: #### L 100.0100, L501.9985, L501.9520, L500.4100, L500.4050 #### [facility] [address] [place], [address] Chloride [Moles/Vol] 99 mmol/L Normal 98-107 [facility] Comment on above: Performed By: #### L 100.0100, L501.9985, L501.9520, L500.4100, L500.4050 #### [facility] [address] [place], [address] CO2 [Moles/Vol] 33.0 mmol/L High 21.0-32.0 [facility] Comment on above: Performed By: #### L 100.0100, L501.9985, L501.9520, L500.4100, L500.4050 #### [facility] [address] [place], [address] Creatinine [Mass/Vol] 0.87 mg/dL Normal 0.70-1.30 [facility] Comment on above: Result Comment: The validity of the calculated GFR GFRAA in patients over 70 years has not been determined. Clinical correlation is essential. Performed By: #### L 100.0100, L501.9985, L501.9520, L500.4100, L500.4050 #### [facility] [address] [place], [address] EST GFR - AA 121 mL/min Normal >60 [facility] Comment on above: Result Comment: Afri can Welsh GFR Calc Performed By: #### L 100.0100, L501.9985, L501.9520, L500.4100, L500.4050 #### [facility] [address] [place], [address] GAP 3 Low 5-15 [facility] Comment on above: Performed By: #### L 100.0100, L501.9985, L501.9520, L500.4100, L500.4050 #### [facility] [address] [place], [address] GFR/1.73 sq M.predicted among non-blacks MDRD (S/P/Bld) [Vol rate/Area] 100 mL/min/{1.73_m2} Normal >60 [facility] Comment on above: Result Comment: Non- GFR Calc Performed By: #### L 100.0100, L501.9985, L501.9520, L500.4100, L500.4050 #### [facility] [address] [place], [address] Globulin (S) [Mass/Vol] 4.0 g/dL Normal 2.2-4.2 [facility] Comment on above: Performed By: #### L 100.0100, L501.9985, L501.9520, L500.4100, L500.4050 #### [facility] [address] [place], [address] Glucose [Mass/Vol] 289 mg/dL High 74-106 [facility] Comment on above: Result Comment: Gluc ose result greater than or equal to 200 mg/dL suggests DIABETES MELLITUS per A.D.A. criteria. Performed By: #### L 100.0100, L501.9985, L501.9520, L500.4100, L500.4050 #### [facility] [address] [place], [address] Potassium [Moles/Vol] 3.3 mmol/L Low 3.5-5.1 [facility] Comment on above: Performed By: #### L 100.0100, L501.9985, L501.9520, L500.4100, L500.4050 #### [facility] [address] [place], [address] Sodium [Moles/Vol] 135 mmol/L Low 136-145 [facility] Comment on above: Performed By: #### L 100.0100, L501.9985, L501.9520, L500.4100, L500.4050 #### [facility] [address] [place], [address] T PROT 7.5 g/dL Normal 6.4-8.2 [facility] Comment on above: Performed By: #### L 100.0100, L501.9985, L501.9520, L500.4100, L500.4050 #### [facility] [address] [place], [address] Urea nitrogen [Mass/Vol] 21 mg/dL High 7-18 [facility] Comment on above: Performed By: #### L 100.0100, L501.9985, L501.9520, L500.4100, L500.4050 #### [facility] [address] [place], [address] Eosinophil percentageOrdered By: Angel Bird on 08-29-2024 Eosinophils/100 WBC (Bld) 4.9 % 0-5 [facility] Erythrocyte distribution wid th ratioOrdered By: Angel Bird on 08-29-2024 Erythrocyte distribution width (RBC) [Ratio] 12.8 % 11.6-14.6 [facility] Erythrocyte distribution wid th standard deviationOrdered By: [facility] 08-29-2024 Erythrocyte distribution width (RBC) [Entitic vol] 36.2 fL 35.1-43.9 [facility] Estimated glomerular filtrat ion rate (GFR) AmericanOrdered By: Angel Pang on 08-29-2024 Estimated GFR (MDRD) Amer 121 mL/min >60 [facility] Comment on above: GFR Calc Glomerular filtration rate ( GFR) estimationOrdered By: Angel Bird 08-29-2024 Estimated GFR (MDRD) Non-Af Amer 100 mL/min >60 [facility] Comment on above: Non- GFR Calc Glucose measurementOrdered B y: Angel Pang on 08-29-2024 Glucose [Mass/Vol] 289 mg/dL High 74-106 [facility] Comment on above: Glucose result great er than or equal to 200 mg/dLsuggests DIABETES MELLITUS per A.D.A. criteria. Hematocrit Auto (Bld) [Volum e fraction]Ordered By: Angel Pang on 08-29-2024 Hematocrit (Bld) [Volume fraction] 40.4 % 40-54 [facility] Hemoglobin A1con 08-29-2024 HbA1c (Bld) [Mass fraction] 7.7 % High 3.8-5.6 [facility] Comment on above: Result Comment: Norm al < 5.7 % Prediabetic 5.7 - 6.4 % Diabetic >or= 6.5 % Please note range changes. Performed By: #### L 100.0100, L501.9985, L501.9520, L500.4100, L500.4050 #### [facility] [address] [place], [address] Hemoglobin A1c percentageOrd ered By: Angel Pang on 08-29-2024 HbA1c (Bld) [Mass fraction] 7.7 % High 3.8-5.6 [facility] Comment on above: Normal < 5.7 % Predi abetic 5.7 - 6.4 % Diabetic >or= 6.5 % Please note range changes. Hemoglobin measurementOrdere d By: Angel Pang on 08-29-2024 Hemoglobin (Bld) [Mass/Vol] 13.7 g/dL 13.0-16.5 [facility] High density lipoprotein (HD L) measurementOrdered By: Angel Pang on 08-29-2024 Cholesterol in HDL [Mass/Vol] 32 mg/dL Low >40 [facility] Comment on above: The drugs N-Acetylcy steine and Metamizole may falsely depress this assay. Reference Range HDL <40 mg/dL Low HDL Cholesterol HDL >or= 60 mg/dL High HDL Cholesterol Immature granulocytes/100 WB C Auto (Bld)Ordered By: Angel Pang on 08-29-2024 Immature granulocytes/100 WBC (Bld) 1.400 % High 0.0-0.9 [facility] Comment on above: IG% - Immature Granu locytes (promyelocytes, myelocytes and metamyelocytes) > 1% indicates that a LEFT SHIFT is Present. Laboratory - Chemistry and C hemistry - challengeOrdered By: Angel Pang on 08-29-2024 AST [Catalytic activity/Vol] 28 U/L 15-37 [facility] Lipid Profileon 08-29-2024 Cholesterol [Mass/Vol] 112 mg/dL Normal 200 [facility] Comment on above: Result Comment: <200 mg/dL Desirable 200-240 mg/dL Borderline >240 mg/dL High Risk Performed By: #### L 100.0100, L501.9985, L501.9520, L500.4100, L500.4050 #### [facility] [address] [place], [address] Cholesterol in HDL [Mass/Vol] 32 mg/dL Low [facility] Comment on above: Result Comment: The drugs N-Acetylcysteine and Metamizole may falsely depress this assay. Reference Range HDL <40 mg/dL Low HDL Cholesterol HDL >or= 60 mg/dL High HDL Cholesterol Performed By: #### L 100.0100, L501.9985, L501.9520, L500.4100, L500.4050 #### [facility] [address] [place], [address] Cholesterol in LDL [Mass/Vol] 42 mg/dL Normal 0-130 [facility] Comment on above: Performed By: #### L 100.0100, L501.9985, L501.9520, L500.4100, L500.4050 #### [facility] [address] [place], [address] Cholesterol in VLDL [Mass/Vol] 38 mg/dL Normal 5-40 [facility] Comment on above: Performed By: #### L 100.0100, L501.9985, L501.9520, L500.4100, L500.4050 #### [facility] [address] [place], [address] Triglyceride [Mass/Vol] 188 mg/dL Normal [facility] Comment on above: Result Comment: The drugs N-Acetylcysteine and Metamizole may falsely depress this assay. Serum Triglycerides Reference Interval Normal <150 mg/dL Borderline high 150 - 199 mg/dL High 200 - 499 mg/dL Very High > or = 500 mg/dL Performed By: #### L 100.0100, L501.9985, L501.9520, L500.4100, L500.4050 #### [facility] [address] [place], [address] Low density lipoprotein (LDL ) cholesterol measurementOrdered By: Angel Pang on 08-29-2024 Cholesterol in LDL [Mass/Vol] 42 mg/dL 0-130 [facility] Lymphocytes Auto (Unsp spec) [#/Vol]Ordered By: Angel Pang on 08-29-2024 Lymphocytes (Bld) [#/Vol] 1.20 10*3/uL 0.83-4.51 [facility] Lymphocytes/100 WBC Auto (Un sp spec)Ordered By: Angel Pang on 08-29-2024 Lymphocytes/100 WBC (Bld) 23.3 % 19-41 [facility] MCV (mean corpuscular volume ) determinationOrdered By: Angel Pang on 08-29-2024 MCV (RBC) [Entitic vol] 79.7 fL Low 80-94 [facility] Mean corpuscular hemoglobin (MCH) determinationOrdered By: Angel Pang on 08-29-2024 MCH (RBC) [Entitic mass] 27.0 pg 27.0-32.0 [facility] Mean corpuscular hemoglobin concentration (MCHC) determinationOrdered By: Angel Pang on 08-29-2024 MCHC (RBC) [Mass/Vol] 33.9 g/dL 32-36 [facility] Mean platelet volume determi nationOrdered By: Angel Pang on 08-29-2024 Platelet mean volume (Bld) [Entitic vol] 9.3 fL 6.2-12.0 [facility] Microalbumin,Random Urineon 08-29-2024 MICROALBUMIN,UR 7.2 mg/L Normal NO RANGE EST. [facility] Comment on above: Performed By: #### L 100.0100, L501.9985, L501.9520, L500.4100, L500.4050 #### [facility] [address] [place], [address] Monocyte percentageOrdered B y: Angel Pang on 08-29-2024 Monocytes/100 WBC (Bld) 7.2 % 0-10 [facility] Neutrophil percentageOrdered By: Angel Pang on 08-29-2024 Neutrophils/100 WBC (Bld) 62.2 % 47-70 [facility] Nucleated red blood cell per centageOrdered By: Angel Pang on 08-29-2024 Nucleated RBC/100 WBC (Bld) [Ratio] 0 % 0-5 [facility] Platelet countOrdered By: Alexandru Pang on 08-29-2024 Platelets (Bld) [#/Vol] 289 10*3/uL 150-450 [facility] Potassium measurementOrdered By: Angel Pang on 08-29-2024 Potassium [Moles/Vol] 3.3 mmol/L Low 3.5-5.1 [facility] RBC Auto (Bld) [#/Vol]Ordere d By: Angel Pang on 08-29-2024 RBC (Bld) [#/Vol] 5.07 10*6/uL 4.6-6.2 [facility] Random urine microalbumin me asurementOrdered By: Angel Pang on 08-29-2024 Urine Random Microalbumin 7.2 mg/L NO RANGE EST. [facility] Serum anion gap measurementO rdered By: Angel Pang on 08-29-2024 Anion gap [Moles/Vol] 3 mmol/L Low 5-15 [facility] Serum globulin measurementOr dered By: Angel Pang on 08-29-2024 Globulin (S) [Mass/Vol] 4.0 g/dL 2.2-4.2 [facility] Serum or plasma alanine okeefe otransferase (ALT) measurementOrdered By: Angel Pang 08-29-2024 ALT [Catalytic activity/Vol] 58 U/L 16-61 [facility] Serum or plasma albumin livia urement (mass/volume)Ordered By: Angel Pang 08-29-2024 Albumin [Mass/Vol] 3.5 g/dL 3.2-5.0 [facility] Serum or plasma alkaline ronni sphatase measurementOrdered By: Angel Pang on 08-29-2024 ALP [Catalytic activity/Vol] 77 U/L 45-117 [facility] Serum or plasma calcium livia urement (mass/volume)Ordered By: Angel Pang on 08-29-2024 Calcium [Mass/Vol] 8.9 mg/dL 8.5-10.1 [facility] Serum or plasma cholesterol measurement (mass/volume)Ordered By: Angel Pang on 08-29-2024 Cholesterol [Mass/Vol] 112 mg/dL <200 [facility] Comment on above: <200 mg/dL Desirable 200-240 mg/dL Borderline >240 mg/dL High Risk Serum or plasma creatinine m easurement (mass/volume)Ordered By: Angel Pang on 08-29-2024 Creatinine [Mass/Vol] 0.87 mg/dL 0.70-1.30 [facility] Comment on above: The validity of the calculated GFR & GFRAA in patients over 70 years has not been determined. Clinical correlation is essential. Serum or plasma urea nitroge n measurement (mass/volume)Ordered By: Angel Pang on 08-29-2024 Urea nitrogen [Mass/Vol] 21 mg/dL High -18 [facility] Sodium levelOrdered By: Angel Pang 08-29-2024 Sodium [Moles/Vol] 135 mmol/L Low 136-145 [facility] TSH QnOrdered By: Angel Pang o n 08-29-2024 Thyroid Stimulating Hormone (TSH) 1.300 uIU/mL 0.358-3.74 0 [facility] Thyroid Stim Hormone (TSH)on 08-29-2024 TSH 1.300 uIU/mL Normal 0.358-3.74 0 [facility] Comment on above: Performed By: #### L 100.0100, L501.9985, L501.9520, L500.4100, L500.4050 #### [facility] [address] [place], [address] Total proteinOrdered By: Angel Pang on 08-29-2024 Protein [Mass/Vol] 7.5 g/dL 6.4-8.2 [facility] Triglycerides measurementOrd ered By: Angel Pang on 08-29-2024 Triglyceride [Mass/Vol] 188 mg/dL <199 [facility] Comment on above: The drugs N-Acetylcy steine and Metamizole may falsely depress this assay.Serum Triglycerides Reference Interval Normal <150 mg/dL Borderline high 150 - 199 mg/dL High 200 - 499 mg/dL Very High > or = 500 mg/dL Very low density lipoprotein (VLDL) cholesterol measurementOrdered By: Angel Pang on 08-29-2024 VLDL Cholesterol 38 mg/dL 5-40 [facility] White blood cell (WBC) count Ordered By: Angel Pang on 08-29-2024 WBC (Bld) [#/Vol] 5.2 10*3/uL 4.4-11.0 [facility] Coronary Angiography CTon Coronary Angiography CT [facility] Services [address] [place] [address] 07/25/24 1748 MR#: [id number] Acct: [id number] Name: SIGIFREDO MCCULLOUGH Marialuisa Rep #: [id number] : 1975 49 From: Curtis Mar MD PCP: Dr. Angel Pang MD Status:REG CLI Y Location: CT CCTA w/Cont Coronary Arteries Date of Study:: 07/25/24 Chest pain Coronary Calcium Scoring: High-resolution Computed Tomographic imaging of the chest was performed on [07/24/24 ], with particular attention paid to the coronary arteries. Intravenous contrast agent was administered per protocol and images reconstructed and displayed. LEFT MAIN CORONARY ARTERY: Normal left main coronary artery [] LEFT ANTERIOR DESCENDING CORONARY ARTERY: Mild calcification is noted in the left anterior descending artery with mild to moderate atherosclerotic plaquing no high-grade stenosis present. [] LEFT CIRCUMFLEX CORONARY ARTERY: Mild atherosclerotic plaquing with minimal calcification present no high-grade stenosis present [] RIGHT CORONARY ARTERY: Dominant vessel with proximal calcification present with no high-grade stenosis noted. Conclusion: Mild nonobstructive atherosclerotic plaquing noted. [] 07/25/24 1751 Date Curtis Isabela MD Cosigner Signature (if applicable): Date CC: Dr. Curtis Mar MD; Dr. Steffen Hendrickson MD; Dr. Angel Pang MD Signed Normal [facility] CREATININE FINGERSTICKon CREATININE WB < 1.0 Normal 0.70-1.30 [facility] Comment on above: Performed By: #### L 100.0100, L501.9985, L501.9520, L500.4100, L500.4050 #### [facility] [address] [place], [address] EGFR WB > 60.0000 Normal >60 [facility] Comment on above: Performed By: #### L 100.0100, L501.9985, L501.9520, L500.4100, L500.4050 #### [facility] [address] [place], [address] Cardiac Onl yon 07-24-[address] Cardiac Only [facility] Imaging Services [address] [place] [address] Cardiac Only MR#: [id number] Acct: [id number] Name: SIGIFREDO MCCULLOUGH Rep #: [id number] : 1975 M 49 From: Clem lunsford MD PCP: Dr. Angel Pang MD Status: REG CLI Study: Limited Chest CT Cardiac Only Date of Exam: Exam# [id number] Ordering Dr: Steffen Hendrickson MD 2:[id number] STUDY: CT CHEST WITH CONTRAST REASON FOR EXAM: Male, 49 years old. CHEST PAIN RADIATION DOSAGE (If Supplied By Facility): CTDIvol = ( 58.37 ) mGy, DLP = ( 2186.93 ) mGycm TECHNIQUE: Transaxial imaging was performed following intravenous administration of IV 75mL Isovue-370. Cardiac over read examination. Individualized dose optimization techniques were used for this CT. COMPARISON: No relevant priors. FINDINGS: CHEST The lungs are normal. There is no demonstrated pleural abnormality. Normal heart and pericardium. Normal mediastinum. Normal hilar regions. Normal unenhanced pulmonary arteries. Normal aorta arch and descending thoracic aorta. Normal osseous structures. Fatty infiltration of the liver. CT/Limited Chest CT Cardiac Only IMPRESSION: Normal enhanced CT chest. Electronically Signed: Clem Ying MD at 14:58 EST Reading Location ID and State: [facility] / [place] , Service support , CC: Dr. Steffen Hendrickson MD; Dr. Angel Pang MD Forensic Artist: Signed Normal [facility] 12 Lead E[place] performed [place] [facility] [place] 06-27-2024 12 Lead EKG performed by [facility] [address] [place] [address] 12 Lead EKG performed by [facility] 06/27/24 0807 MR#: [id number] Acct: [id number] Name: SIGIFREDO MCCULLOUGH Rep #: [id number] : 1975 49 From: Steffen Hendrickson MD Attending Dr: Dr. Steffen Hendrickson MD Status: DE P AMB Ordering Dr: Steffen Hendrickson MD Date: 06/27/24 [place] [facility] [place] M C Admitted: [facility]12 Lead EKG performed by [facility] ECG Report Interpretation S inus Rhythm -Left axis. ABNORMAL Electronically signed on 06/27/2024 at 15:[address] Steffen Hendrickson [facility] 06/27/24 1532 Date Steffen Hendrickson MD CC: Dr. Angel Pang MD Date Dictated: 06/27/24806 Date Transcribed: 06/27/24806 Forensic Artist: Signed Normal [facility] Cardiology Visit Reporton Cardiology Visit Report [facility] [address] [place] [address] OFFICE VISIT Date of Service: 06/27/24 MR#: [id number] Acct: [id number] Name: SIGIFREDO MCCULLOUGH Rep #: [id number] : 1975 Provider: Dr. Steffen hess MD Age/Sex: 49/M Location[place] [facility] Status: Signed HPI HPI History of Present Illness Details: Patient is a very pleasant 49-year-old white male that comes in for new patient visit. The patient has a history of chest discomfort that is not predictable. It actually seems to occur like a tingling and can start in the left side of his chest or his left axillary line. It does not seem to rotate it is associated from diaphoresis at times and it can precede some abdominal discomfort. He also has a problem with upper back discomfort that creates some tightness across the shoulder and into his chest. The patient does have significant cardiac risk factors include a strong family history he has a history of hyperlipidemia which is well-controlled hypertension which is well-controlled he is diabetic with a hemoglobin A1c of 7.8 and he quit smoking 10 years ago. And she had a history of a TIA back in February 2023 he had essentially no carotid disease at that time. He also has a history of fatty liver and morbid obesity as well as sleep apnea treated with CPAP. The patient had a stress test that was technically adequate in November 2022 his peak exercise EKG had significant motion artifact there were no obvious EKG changes there were no arrhythmias during exercise or recovery. He had a remote echocardiogram November 2017 which showed normal right and left ventricular function no significant valvular heart disease right ventricular systolic pressure of 29. It was a negative bubble study for a PFO. Currently the patient is working full-time driving truck. He denies any syncope or near syncope. Denies any signs or symptoms of congestive failure. EKG in office shows a normal sinus rhythm with left axis and otherwise is unremarkable. Intake Vital Signs 08/16/22 11:07 06/27/24 13:18 Height 5 ft 10.08 in 5 ft 10.08 in Weight: 277 lb BMI 39.6 BP 111/70 Blood Pressure Location Lt brachial Position Sitting Respiration 18 Pulse 77 Pulse Source Monitor Pulse Oximetry (%) 94 Oxygen Delivery Method room air Intake Visit Reasons: CP/ Family Hx of CAD ([employer]) [employer] Supervisor Required: No Accompanied by: Self Is patient in pain?: No Allergies No Known Allergies Allergy (Verified 06/27/24 13:19) Medications ???Medication ???Instructions ???Recorded ???Confirmed ???Type losartan 100 1 tab PO DAILY 10/07/20 06/27/24 History mg-hydrochlorothiazide 25 mg tablet omega-3 fatty acids 1,000 mg 1,000 mg PO BID 10/07/20 06/27/24 History capsule (Fish Oil Concentrate) pantoprazole 40 mg tablet,delayed 40 mg PO DAILY 10/23/21 06/27/24 History release atorvastatin 40 mg tablet 40 mg PO QDAY 06/14/24 06/27/24 History glimepiride 4 mg tablet 4 mg PO BID 06/14/24 06/27/24 History metformin 1,000 mg tablet 1,000 mg PO BIDCM 06/14/24 06/27/24 History pioglitazone 30 mg tablet 30 mg PO QDAY 06/14/24 06/27/24 History Have you fallen in the past year?: No [facility] Medical History (Updated 06/27/24 @ 14:[address] Steffen Hendrickson MD) Chest pain Morbid obesity GERD (gastroesophageal reflux disease) Hepatic fibrosis Chronic cholecystitis with calculus Cholelithiasis Chronic cholecystitis Wears dentures Alcohol use History of steroid therapy High cholesterol Back pain Gastric reflux Former smoker CPAP (continuous positive airway pressure) dependence Chronic cough Leg cramps History of pain when walking Hypertension History of stress test Change in stool Sleep apnea Diabetes mellitus Hyperlipidemia, mixed Essential hypertension, benign TIA (transient ischemic attack) Surgical History History of laparoscopic cholecystectomy History of colonoscopy ( 10/2021) History of esophagogastroduodenoscopy (EGD) ( 10/2021) Hx of tooth extraction s/p anal fistulotomy Family History Father Diabetes Heart disease Hypertension Kidney disease High cholesterol Brother Kidney disease Diabetes Grandfather CVA (cerebral vascular accident) Grandmother Heart disease Social History Smoking Status: Former smoker alcohol intake: current substance use type: does not use caffeine: Yes ROS Const Const: Negative for weakness Cardio Chest Pain: Yes Frequency: weekly Character: tightness and other (Tingling) Onset: at rest and exercise Location: left chest Duration: minutes Palpitations: No Edema: Bilateral (Trac (more content not included)... Normal [facility] Ext Non Vasc Limited/Soft Ti sson 06-27-2024 Ext Non Vasc Limited/Soft Tiss [facility] Imaging Services [address] [place] [id number] Ext Non Vasc Limited/Soft Tiss MR#: [id number] Acct: [id number] Name: SIGIFREDO MCCULLOUGH Rep #: [id number] : 1975 M 49 From: Sulema colon MD PCP: Dr. Angel Pang MD Status: REG [facility] Study: Ext Non Vasc Limited/Soft Tiss Date of Exam: 1 Exam# [id number] Ordering Dr: Ga Regan 2:[id number] HISTORY: enlarged LN left axilla. TECHNIQUE: Ultrasound images of the left axilla. 35 images. COMPARISON: 12/06/2023 FINDINGS: 1.7 x 4.4 x 5 cm oval mass. 1.6 x 2.7 x 3.2 cm oval mass. 1.1 x 1.4 x 1.7 cm lymph node. 1.2 x 2.2 x 2.6 cm, 1.3 x 2.1 x 3.1 cm, and 0.9 x 1.5 x 2 cm lymph nodes or masses. US/Ext Non Vasc Limited/Soft Tiss IMPRESSION: Multiple enlarged lymph nodes/lymph node masses in the left axilla increased in size and number compared to prior. Recommend further workup, close follow-up with referral to breast center, and/or correlation with tissue diagnosis. Electronically Signed: Sulema Erazo MD at 10:55 EDT , CC: Dr. Ga Regan MD; Dr. Angel Pang MD Forensic Artist: Signed Normal [facility] CBC W/Diff, Automatedon 05-13-2023 Absolute Lymph 1.47 X10 3/uL Normal 0.83-4.51 [facility] Comment on above: Performed By: #### L 100.0100, L501.9985, L501.9520, L500.4100, L500.4050 #### [facility] [address] [place], [address] Absolute Neut 3.3 X10 3/uL Normal 2.0-7.7 [facility] Comment on above: Performed By: #### L 100.0100, L501.9985, L501.9520, L500.4100, L500.4050 #### [facility] [address] [place], [address] Basophils/100 WBC (Bld) 0.7 % Normal 0-1 [facility] Comment on above: Performed By: #### L 100.0100, L501.9985, L501.9520, L500.4100, L500.4050 #### [facility] [address] [place], [address] Eosinophils/100 WBC (Bld) 5.0 % Normal 0-5 [facility] Comment on above: Performed By: #### L 100.0100, L501.9985, L501.9520, L500.4100, L500.4050 #### [facility] [address] [place], [address] Erythrocyte distribution width (RBC) [Ratio] 12.5 % Normal 11.6-14.6 [facility] Comment on above: Performed By: #### L 100.0100, L501.9985, L501.9520, L500.4100, L500.4050 #### [facility] [address] [place], [address] Hematocrit (Bld) [Volume fraction] 43.1 % Normal 40-54 [facility] Comment on above: Performed By: #### L 100.0100, L501.9985, L501.9520, L500.4100, L500.4050 #### [facility] [address] [place], [address] Hemoglobin (Bld) [Mass/Vol] 14.2 g/dL Normal 13.0-16.5 [facility] Comment on above: Performed By: #### L 100.0100, L501.9985, L501.9520, L500.4100, L500.4050 #### [facility] [address] [place], [address] IG% 0.500 Normal 0.0-0.9 [facility] Comment on above: Result Comment: IG% - Immature Granulocytes (promyelocytes, myelocytes and metamyelocytes) > 1% indicates that a LEFT SHIFT is Present. Performed By: #### L 100.0100, L501.9985, L501.9520, L500.4100, L500.4050 #### [facility] [address] [place], [address] Lymphocytes/100 WBC (Bld) 26.4 % Normal 19-41 [facility] Comment on above: Performed By: #### L 100.0100, L501.9985, L501.9520, L500.4100, L500.4050 #### [facility] [address] [place], [address] MCH (RBC) [Entitic mass] 26.6 pg Low 27.0-32.0 [facility] Comment on above: Performed By: #### L 100.0100, L501.9985, L501.9520, L500.4100, L500.4050 #### [facility] [address] [place], [address] MCHC (RBC) [Mass/Vol] 32.9 g/dL Normal 32-36 [facility] Comment on above: Performed By: #### L 100.0100, L501.9985, L501.9520, L500.4100, L500.4050 #### [facility] [address] [place], [address] MCV (RBC) [Entitic vol] 80.9 fL Normal 80-94 [facility] Comment on above: Performed By: #### L 100.0100, L501.9985, L501.9520, L500.4100, L500.4050 #### [facility] [address] [place], [address] Monocytes/100 WBC (Bld) 8.6 % Normal 0-10 [facility] Comment on above: Performed By: #### L 100.0100, L501.9985, L501.9520, L500.4100, L500.4050 #### [facility] [address] [place], [address] Neutrophils/100 WBC (Bld) 58.8 % Normal 47-70 [facility] Comment on above: Performed By: #### L 100.0100, L501.9985, L501.9520, L500.4100, L500.4050 #### [facility] [address] [place], [address] Nucleated RBC (Bld) [#/Vol] 0 10*3/uL Normal 0-5 [facility] Comment on above: Performed By: #### L 100.0100, L501.9985, L501.9520, L500.4100, L500.4050 #### [facility] [address] [place], [address] Platelet mean volume (Bld) [Entitic vol] 9.6 fL Normal 6.2-12.0 [facility] Comment on above: Performed By: #### L 100.0100, L501.9985, L501.9520, L500.4100, L500.4050 #### [facility] [address] [place], [address] Platelets (Bld) [#/Vol] 238 10*3/uL Normal 150-450 [facility] Comment on above: Performed By: #### L 100.0100, L501.9985, L501.9520, L500.4100, L500.4050 #### [facility] [address] [place], [address] RBC (Bld) [#/Vol] 5.33 10*6/uL Normal 4.6-6.2 [facility] Comment on above: Performed By: #### L 100.0100, L501.9985, L501.9520, L500.4100, L500.4050 #### [facility] [address] [place], [address] RDW SD 36.2 fl Normal 35.1-43.9 [facility] Comment on above: Performed By: #### L 100.0100, L501.9985, L501.9520, L500.4100, L500.4050 #### [facility] [address] [place], [address] WBC (Bld) [#/Vol] 5.6 10*3/uL Normal 4.4-11.0 [facility] Comment on above: Performed By: #### L 100.0100, L501.9985, L501.9520, L500.4100, L500.4050 #### [facility] [address] [place], [address] Comprehensive Metabolic Prof nvon 05-24-2024 Albumin [Mass/Vol] 3.8 g/dL Normal 3.2-5.0 [facility] Comment on above: Performed By: #### L 100.0100, L501.9985, L501.9520, L500.4100, L500.4050 #### [facility] [address] [place], [address] Albumin/Globulin [Mass ratio] 1.0 {ratio} Normal 0.9-2.4 [facility] Comment on above: Performed By: #### L 100.0100, L501.9985, L501.9520, L500.4100, L500.4050 #### [facility] [address] [place], [address] ALK P 76 U/L Normal 45-117 [facility] Comment on above: Performed By: #### L 100.0100, L501.9985, L501.9520, L500.4100, L500.4050 #### [facility] [address] [place], [address] ALT [Catalytic activity/Vol] 49 U/L Normal 16-61 [facility] Comment on above: Performed By: #### L 100.0100, L501.9985, L501.9520, L500.4100, L500.4050 #### [facility] [address] [place], [address] AST [Catalytic activity/Vol] 30 U/L Normal 15-37 [facility] Comment on above: Performed By: #### L 100.0100, L501.9985, L501.9520, L500.4100, L500.4050 #### [facility] [address] [place], [address] Bilirubin [Mass/Vol] 1.80 mg/dL High 0.20-1.00 [facility] Comment on above: Result Comment: For patients on eltrombopag therapy, use of Dimension [place] TBIL is not recommended. Performed By: #### L 100.0100, L501.9985, L501.9520, L500.4100, L500.4050 #### [facility] [address] [place], [address] BUN/CRE 28.8 RATIO High 10-20 [facility] Comment on above: Performed By: #### L 100.0100, L501.9985, L501.9520, L500.4100, L500.4050 #### [facility] [address] [place], [address] CA,Total 9.4 mg/dL Normal 8.5-10.1 [facility] Comment on above: Performed By: #### L 100.0100, L501.9985, L501.9520, L500.4100, L500.4050 #### [facility] [address] [place], [address] Chloride [Moles/Vol] 100 mmol/L Normal 98-107 [facility] Comment on above: Performed By: #### L 100.0100, L501.9985, L501.9520, L500.4100, L500.4050 #### [facility] [address] [place], [address] CO2 [Moles/Vol] 29.0 mmol/L Normal 21.0-32.0 [facility] Comment on above: Performed By: #### L 100.0100, L501.9985, L501.9520, L500.4100, L500.4050 #### [facility] [address] [place], [address] Creatinine [Mass/Vol] 0.90 mg/dL Normal 0.70-1.30 [facility] Comment on above: Result Comment: The validity of the calculated GFR GFRAA in patients over 70 years has not been determined. Clinical correlation is essential. Performed By: #### L 100.0100, L501.9985, L501.9520, L500.4100, L500.4050 #### [facility] [address] [place], [address] EST GFR - AA 116 mL/min Normal >60 [facility] Comment on above: Result Comment: Afri can Welsh GFR Calc Performed By: #### L 100.0100, L501.9985, L501.9520, L500.4100, L500.4050 #### [facility] [address] [place], [address] GAP 8 Normal 5-15 [facility] Comment on above: Performed By: #### L 100.0100, L501.9985, L501.9520, L500.4100, L500.4050 #### [facility] [address] [place], [address] GFR/1.73 sq M.predicted among non-blacks MDRD (S/P/Bld) [Vol rate/Area] 96 mL/min/{1.73_m2} Normal >60 [facility] Comment on above: Result Comment: Non- GFR Calc Performed By: #### L 100.0100, L501.9985, L501.9520, L500.4100, L500.4050 #### [facility] [address] [place], [address] Globulin (S) [Mass/Vol] 3.8 g/dL Normal 2.2-4.2 [facility] Comment on above: Performed By: #### L 100.0100, L501.9985, L501.9520, L500.4100, L500.4050 #### [facility] [address] [place], [address] Glucose [Mass/Vol] 165 mg/dL High 74-106 [facility] Comment on above: Result Comment: Fast ing Glucose result greater than or equal to 126 mg/dL suggests DIABETES MELLITUS per A.D.A. criteria. Performed By: #### L 100.0100, L501.9985, L501.9520, L500.4100, L500.4050 #### [facility] [address] [place], [address] Potassium [Moles/Vol] 3.9 mmol/L Normal 3.5-5.1 [facility] Comment on above: Performed By: #### L 100.0100, L501.9985, L501.9520, L500.4100, L500.4050 #### [facility] [address] [place], [address] Sodium [Moles/Vol] 137 mmol/L Normal 136-145 [facility] Comment on above: Performed By: #### L 100.0100, L501.9985, L501.9520, L500.4100, L500.4050 #### [facility] [address] [place], [address] T PROT 7.6 g/dL Normal 6.4-8.2 [facility] Comment on above: Performed By: #### L 100.0100, L501.9985, L501.9520, L500.4100, L500.4050 #### [facility] [address] [place], [address] Urea nitrogen [Mass/Vol] 26 mg/dL High 7-18 [facility] Comment on above: Performed By: #### L 100.0100, L501.9985, L501.9520, L500.4100, L500.4050 #### [facility] [address] [place], [address] Hemoglobin A1con 05-24-2024 HbA1c (Bld) [Mass fraction] 7.9 % High 3.8-5.6 [facility] Comment on above: Result Comment: Norm al < 5.7 % Prediabetic 5.7 - 6.4 % Diabetic >or= 6.5 % Please note range changes. Performed By: #### L 100.0100, L501.9985, L501.9520, L500.4100, L500.4050 #### [facility] [address] [place], [address] Lipid Profileon 05-24-2024 Cholesterol [Mass/Vol] 138 mg/dL Normal 200 [facility] Comment on above: Result Comment: <200 mg/dL Desirable 200-240 mg/dL Borderline >240 mg/dL High Risk Performed By: #### L 100.0100, L501.9985, L501.9520, L500.4100, L500.4050 #### [facility] [address] [place], [address] Cholesterol in HDL [Mass/Vol] 36 mg/dL Low [facility] Comment on above: Result Comment: The drugs N-Acetylcysteine and Metamizole may falsely depress this assay. Reference Range HDL <40 mg/dL Low HDL Cholesterol HDL >or= 60 mg/dL High HDL Cholesterol Performed By: #### L 100.0100, L501.9985, L501.9520, L500.4100, L500.4050 #### [facility] [address] [place], [address] Cholesterol in LDL [Mass/Vol] 72 mg/dL Normal 0-130 [facility] Comment on above: Performed By: #### L 100.0100, L501.9985, L501.9520, L500.4100, L500.4050 #### [facility] [address] [place], [address] Cholesterol in VLDL [Mass/Vol] 30 mg/dL Normal 5-40 [facility] Comment on above: Performed By: #### L 100.0100, L501.9985, L501.9520, L500.4100, L500.4050 #### [facility] [address] [place], [address] Triglyceride [Mass/Vol] 149 mg/dL Normal [facility] Comment on above: Result Comment: The drugs N-Acetylcysteine and Metamizole may falsely depress this assay. Serum Triglycerides Reference Interval Normal <150 mg/dL Borderline high 150 - 199 mg/dL High 200 - 499 mg/dL Very High > or = 500 mg/dL Performed By: #### L 100.0100, L501.9985, L501.9520, L500.4100, L500.4050 #### [facility] [address] [place], [address] Thyroid Stim Hormone (TSH)on 05-24-2024 TSH 1.820 uIU/mL Normal 0.358-3.74 0 [facility] Comment on above: Performed By: #### L 100.0100, L501.9985, L501.9520, L500.4100, L500.4050 #### [facility] [address] [place], [address] Absolute lymphocyte countOrd ered By: Angel Pang on 11-25-2023 Lymphocytes Auto (Unsp spec) [#/Vol] 1.33 10*3/uL 0.83-4.51 [facility] Automated lymphocyte count a s percentage of total leukocytesOrdered By: Angel Pang on 11-25-2023 Lymphocytes/100 WBC Auto (Unsp spec) 31.7 % 19-41 [facility] Basophil percentageOrdered B y: Angel Pang on 11-25-2023 Basophils/100 WBC (Bld) 1.0 % 0-1 [facility] Bilirubin [Mass/Vol] 2.10 mg/dL 0.20-1.00 [facility] Comment on above: For patients on eltr ombopag therapy, use of Dimension [place] TBIL is not recommended. Chloride [Moles/Vol] 102 mmol/L 98-107 [facility] Eosinophils/100 WBC (Bld) 3.8 % 0-5 [facility] Glucose [Mass/Vol] 215 mg/dL 74-106 [facility] Comment on above: Glucose result great er than or equal to 200 mg/dLsuggests DIABETES MELLITUS per A.D.A. criteria. Hemoglobin (Bld) [Mass/Vol] 14.6 g/dL 13.0-16.5 [facility] Monocytes/100 WBC (Bld) 10.2 % 0-10 [facility] Neutrophils (Bld) [#/Vol] 2.2 10*3/uL 2.0-7.7 [facility] Neutrophils/100 WBC (Bld) 52.8 % 47-70 [facility] Potassium [Moles/Vol] 3.5 mmol/L 3.5-5.1 [facility] Protein [Mass/Vol] 7.5 g/dL 6.4-8.2 [facility] Sodium [Moles/Vol] 137 mmol/L 136-145 [facility] WBC (Bld) [#/Vol] 4.2 10*3/uL 4.4-11.0 [facility] Determination of erythrocyte mean corpuscular volume (MCV)Ordered By: Angel Pang on 11-25-2023 MCV (RBC) [Entitic vol] 79.9 fL 80-94 [facility] Erythrocyte distribution wid th ratioOrdered By: Angel Pang on 11-25-2023 Erythrocyte distribution width (RBC) [Ratio] 12.5 % 11.6-14.6 [facility] Erythrocyte distribution wid th standard deviationOrdered By: Angel Pang on 11-25-2023 Erythrocyte distribution width (RBC) [Entitic vol] 35.5 fL 35.1-43.9 [facility] Hematocrit Auto (Bld) [Volum e fraction]Ordered By: Angel Pang on 11-25-2023 Hematocrit (Bld) [Volume fraction] 42.9 % 40-54 [facility] Immature granulocytes/100 WB C Auto (Bld)Ordered By: Angel Pang on 11-25-2023 Immature granulocytes/100 WBC (Bld) 0.500 % 0.0-0.9 [facility] Comment on above: IG% - Immature Granu locytes (promyelocytes, myelocytes and metamyelocytes) > 1% indicates that a LEFT SHIFT is Present. Laboratory - Chemistry and C hemistry - challengeOrdered By: [facility] Albumin/Globulin [Mass ratio] 1.1 {ratio} 0.9-2.4 [facility] ALP [Catalytic activity/Vol] 73 U/L 45-117 [facility] ALT [Catalytic activity/Vol] 70 U/L 16-61 [facility] CO2 [Moles/Vol] 28.0 mmol/L 21.0-32.0 [facility] Globulin (S) [Mass/Vol] 3.6 g/dL 2.2-4.2 [facility] Urea nitrogen/Creatinine [Mass ratio] 25.4 mg/mg 10-20 [facility] - Hematology and Cell countsOrdered By: Angel Pang 11-25-2023 MCH (RBC) [Entitic mass] 27.2 pg 27.0-32.0 [facility] MCHC (RBC) [Mass/Vol] 34.0 g/dL 32-36 [facility] Nucleated RBC/100 WBC (Bld) [Ratio] 0 % 0-5 [facility] Platelet mean volume (Bld) [Entitic vol] 9.8 fL 6.2-12.0 [facility] Platelets (Bld) [#/Vol] 208 10*3/uL 150-450 [facility] No Panel InformationOrdered By: Angel Pang on 11-25-2023 Estimated GFR (MDRD) Amer 128 mL/min >60 [facility] Comment on above: GFR Calc Estimated GFR (MDRD) Non-Af Amer 106 mL/min >60 [facility] Comment on above: Non- GFR Calc RBC Auto (Bld) [#/Vol]Ordere d By: Angel Pang on 11-25-2023 RBC (Bld) [#/Vol] 5.37 10*6/uL 4.6-6.2 [facility] Serum or plasma calcium livia urement (mass/volume)Ordered By: Angel Pang on 11-25-2023 Calcium [Mass/Vol] 8.8 mg/dL 8.5-10.1 [facility] Serum or plasma creatinine m easurement (mass/volume)Ordered By: Angel Pang on 11-25-2023 Creatinine [Mass/Vol] 0.83 mg/dL 0.70-1.30 [facility] Comment on above: The validity of the calculated GFR & GFRAA in patients over 70 years has not been determined. Clinical correlation is essential. Serum or plasma thyroid stim ulating hormone (TSH) measurement (units/volume)Ordered By: Angel Pang on 11-25-2023 TSH Qn 1.90 uIU/mL 0.358-3.74 [facility] Serum or plasma urea nitroge n measurement (mass/volume)Ordered By: Angel Pang on 11-25-2023 Urea nitrogen [Mass/Vol] 21 mg/dL 03-29 [facility] Thin prep Papanicolaou smear with manual screeningOrdered By: Angel Pang 11-25-2023 Thin prep Papanicolaou smear with manual screening 3.9 g/dL 3.2-5.0 [facility] Thin prep Papanicolaou smear with manual screening 36 U/L [facility] Thin prep Papanicolaou smear with manual screening 7 5-15 [facility] - Microbiology an d Antimicrobial susceptibilityOrdered By: Angel Pang on 08-26-2023 SARS-CoV-2 (COVID-19) RNA DINESH+probe Ql (Unsp spec) SARS-CoV-2 (COVID 19 PCR) [facility] SARS-CoV-2 (COVID-19) RNA DINESH+probe Ql (Unsp spec) SARS-CoV-2 (COVID 19 PCR) [facility] No Panel InformationOrdered By: Angel Pang on 08-26-2023 Influenza Types A,B Direct FA (DELISA) [facility] Influenza Types A,B Direct FA (DELISA) [facility] RSV Ag EIAOrdered By: Angel sellers on 08-26-2023 RSV Ag Immune stain Ql (Tiss) [facility] RSV Ag Immune stain Ql (Tiss) [facility] Absolute lymphocyte countOrd ered By: Angle Pang on 08-24-2023 Lymphocytes Auto (Unsp spec) [#/Vol] 1.24 10*3/uL 0.83-4.51 [facility] Basophil percentageOrdered B y: Angel Pang on 08-24-2023 Basophils/100 WBC (Bld) 0.8 % 0-1 [facility] Bilirubin [Mass/Vol] 1.70 mg/dL 0.20-1.00 [facility] Comment on above: For patients on eltr ombopag therapy, use of Dimension [place] TBIL is not recommended. Chloride [Moles/Vol] 106 mmol/L 98-107 [facility] Eosinophils/100 WBC (Bld) 4.0 % 0-5 [facility] Glucose [Mass/Vol] 209 mg/dL 74-106 [facility] Comment on above: Glucose result great er than or equal to 200 mg/dLsuggests DIABETES MELLITUS per A.D.A. criteria. Neutrophils (Bld) [#/Vol] 2.2 10*3/uL 2.0-7.7 [facility] Neutrophils/100 WBC (Bld) 54.9 % 47-70 [facility] Potassium [Moles/Vol] 3.7 mmol/L 3.5-5.1 [facility] Protein [Mass/Vol] 7.7 g/dL 6.4-8.2 [facility] Sodium [Moles/Vol] 139 mmol/L 136-145 [facility] WBC (Bld) [#/Vol] 4.0 10*3/uL 4.4-11.0 [facility] Blood erythrocytes count (nu mber/volume)Ordered By: Angel Pang on 08-24-2023 RBC (Bld) [#/Vol] 5.39 10*6/uL 4.6-6.2 [facility] Blood hemoglobin measurement (mass/volume)Ordered By: [facility] on 08-24-2023 Hemoglobin (Bld) [Mass/Vol] 14.5 g/dL 13.0-16.5 [facility] Blood lymphocytes/100 leukoc ytesOrdered By: [facility] on 08-24-2023 Lymphocytes/100 WBC (Bld) 31.2 % 19-41 [facility] Blood monocytes/100 leukocyt esOrdered By: [facility] on 08-24-2023 Monocytes/100 WBC (Bld) 8.8 % 0-10 [facility] Blood platelet mean volumeOr dered By: [facility] on 08-24-2023 Platelet mean volume (Bld) [Entitic vol] 10.0 fL 6.2-12.0 [facility] Determination of erythrocyte mean corpuscular volume (MCV)Ordered By: [facility] on 08-24-2023 MCV (RBC) [Entitic vol] 80.3 fL 80-94 [facility] Hematocrit Auto (Bld) [Volum e fraction]Ordered By: [facility] on 08-24-2023 Hematocrit (Bld) [Volume fraction] 43.3 % 40-54 [facility] - Chemistry and C hemistry - challengeOrdered By: [facility] 08-24-2023 ALP [Catalytic activity/Vol] 74 U/L 45-117 [facility] ALT [Catalytic activity/Vol] 61 U/L 16-61 [facility] CO2 [Moles/Vol] 26.0 mmol/L 21.0-32.0 [facility] Globulin (S) [Mass/Vol] 3.8 g/dL 2.2-4.2 [facility] Urea nitrogen/Creatinine [Mass ratio] 28.8 mg/mg 10-20 [facility] - Hematology and Cell countsOrdered By: [facility] 08-24-2023 Erythrocyte distribution width (RBC) [Entitic vol] 35.2 fL 35.1-43.9 [facility] Erythrocyte distribution width (RBC) [Ratio] 12.2 % 11.6-14.6 [facility] Immature granulocytes/100 WBC (Bld) 0.300 % 0.0-0.9 [facility] Comment on above: IG% - Immature Granu locytes (promyelocytes, myelocytes and metamyelocytes) > 1% indicates that a LEFT SHIFT is Present. MCH (RBC) [Entitic mass] 26.9 pg 27.0-32.0 [facility] Nucleated RBC/100 WBC (Bld) [Ratio] 0 % 0-5 [facility] MCHC Auto (RBC) [Mass/Vol]Or dered By: Angel Pang on 08-24-2023 MCHC (RBC) [Mass/Vol] 33.5 g/dL 32-36 [facility] No Panel InformationOrdered By: Angel Pang on 08-24-2023 Estimated GFR (MDRD) Amer 134 mL/min >60 [facility] Comment on above: GFR Calc Estimated GFR (MDRD) Non-Af Amer 110 mL/min >60 [facility] Comment on above: Non- GFR Calc Thyroid Stimulating Hormone (TSH) 1.63 uIU/mL 0.358-3.74 [facility] Platelets bldOrdered By: Angel Pang on 08-24-2023 Platelets (Bld) [#/Vol] 229 10*3/uL 150-450 [facility] Serum or plasma albumin livia urement (mass/volume)Ordered By: Angel Pang 08-24-2023 Albumin [Mass/Vol] 3.9 g/dL 3.2-5.0 [facility] Serum or plasma albumin/glob ulin mass ratioOrdered By: Angel Pang 08-24-2023 Albumin/Globulin [Mass ratio] 1.0 {ratio} 0.9-2.4 [facility] Serum or plasma calcium livia urement (mass/volume)Ordered By: Angel Pang 08-24-2023 Calcium [Mass/Vol] 8.7 mg/dL 8.5-10.1 [facility] Serum or plasma creatinine m easurement (mass/volume)Ordered By: Angel Pang 08-24-2023 Creatinine [Mass/Vol] 0.80 mg/dL 0.70-1.30 [facility] Comment on above: The validity of the calculated GFR & GFRAA in patients over 70 years has not been determined. Clinical correlation is essential. Serum or plasma urea nitroge n measurement (mass/volume)Ordered By: Angel Pang on 08-24-2023 Urea nitrogen [Mass/Vol] 23 mg/dL 7-18 [facility] Thin prep Papanicolaou smear with manual screeningOrdered By: Angel Pang on 08-24-2023 Thin prep Papanicolaou smear with manual screening 32 U/L 15-37 [facility] Thin prep Papanicolaou smear with manual screening 7 5-15 [facility] Absolute lymphocyte countOrd ered By: ED PROVIDER on 08-16-2022 Lymphocytes Auto (Unsp spec) [#/Vol] 1.51 10*3/uL 0.83-4.51 [facility] Basophil percentageOrdered B y: ED PROVIDER on 08-16-2022 Basophils/100 WBC (Bld) 0.1 % 0-1 [facility] Bilirubin [Mass/Vol] 1.30 mg/dL 0.20-1.00 [facility] Comment on above: For patients on eltr ombopag therapy, use of Dimension [place] TBIL is not recommended. Chloride [Moles/Vol] 104 mmol/L 98-107 [facility] Eosinophils/100 WBC (Bld) 2.3 % 0-5 [facility] Glucose [Mass/Vol] 145 mg/dL 74-106 [facility] Comment on above: Fasting Glucose resu lt greater than or equal to 126 mg/dL suggests DIABETES MELLITUS per A.D.A. criteria. Neutrophils (Bld) [#/Vol] 4.8 10*3/uL 2.0-7.7 [facility] Neutrophils/100 WBC (Bld) 67.6 % 47-70 [facility] Potassium [Moles/Vol] 3.5 mmol/L 3.5-5.1 [facility] Protein [Mass/Vol] 7.6 g/dL 6.4-8.2 [facility] Sodium [Moles/Vol] 137 mmol/L 136-145 [facility] WBC (Bld) [#/Vol] 7.1 10*3/uL 4.4-11.0 [facility] Blood erythrocytes count (nu mber/volume)Ordered By: ED PROVIDER on 08-16-2022 RBC (Bld) [#/Vol] 5.39 10*6/uL 4.6-6.2 [facility] Blood hemoglobin measurement (mass/volume)Ordered By: ED PROVIDER on 08-16-2022 Hemoglobin (Bld) [Mass/Vol] 15.4 g/dL 13.0-16.5 [facility] Blood lymphocytes/100 leukoc ytesOrdered By: ED PROVIDER on 08-16-2022 Lymphocytes/100 WBC (Bld) 21.3 % 19-41 [facility] Blood monocytes/100 leukocyt esOrdered By: ED PROVIDER on 08-16-2022 Monocytes/100 WBC (Bld) 7.9 % 0-10 [facility] Blood platelet mean volumeOr dered By: ED PROVIDER on 08-16-2022 Platelet mean volume (Bld) [Entitic vol] 9.5 fL 6.2-12.0 [facility] Determination of erythrocyte mean corpuscular volume (MCV)Ordered By: ED PROVIDER on 08-16-2022 MCV (RBC) [Entitic vol] 82.9 fL 80-94 [facility] Hematocrit Auto (Bld) [Volum e fraction]Ordered By: ED PROVIDER on 08-16-2022 Hematocrit (Bld) [Volume fraction] 44.7 % 40-54 [facility] - Chemistry and C hemistry - challengeOrdered By: ED PROVIDER on 08-16-2022 ALP [Catalytic activity/Vol] 66 U/L 45-117 [facility] ALT [Catalytic activity/Vol] 44 U/L 16-61 [facility] CO2 [Moles/Vol] 27.0 mmol/L 21.0-32.0 [facility] Globulin (S) [Mass/Vol] 3.7 g/dL 2.2-4.2 [facility] Urea nitrogen/Creatinine [Mass ratio] 29.7 mg/mg 10-20 [facility] - Hematology and Cell countsOrdered By: ED PROVIDER on 08-16-2022 Erythrocyte distribution width (RBC) [Entitic vol] 36.7 fL 35.1-43.9 [facility] Erythrocyte distribution width (RBC) [Ratio] 12.1 % 11.6-14.6 [facility] Immature granulocytes/100 WBC (Bld) 0.800 % 0.0-0.9 [facility] Comment on above: IG% - Immature Granu locytes (promyelocytes, myelocytes and metamyelocytes) > 1% indicates that a LEFT SHIFT is Present. MCH (RBC) [Entitic mass] 28.6 pg 27.0-32.0 [facility] Nucleated RBC/100 WBC (Bld) [Ratio] 0 % 0-5 [facility] MCHC Auto (RBC) [Mass/Vol]Or dered By: ED PROVIDER on 08-16-2022 MCHC (RBC) [Mass/Vol] 34.5 g/dL 32-36 [facility] No Panel InformationOrdered By: Dr. Kelley on 08-16-2022 Troponin I High Sensitivity 6 pg/mL 3.0-78.0 [facility] Comment on above: Please Note: New Erna t Units and Gender Specific Reference Ranges. For more information see Policy Stat Procedure [place] High Sensitivity Troponin (TNIH) and attachments. No Panel InformationOrdered By: ED PROVIDER on 08-16-2022 Estimated Creatinine Clearance Calc 114.67 ml/min [facility] Estimated GFR (MDRD) Amer 127 mL/min >60 [facility] Comment on above: GFR Calc Estimated GFR (MDRD) Non-Af Amer 105 mL/min >60 [facility] Comment on above: Non- GFR Calc Thyroid Stimulating Hormone (TSH) 1.82 uIU/mL 0.358-3.74 [facility] Platelets bldOrdered By: ED PROVIDER on 08-16-2022 Platelets (Bld) [#/Vol] 225 10*3/uL 150-450 [facility] Serum or plasma albumin livia urement (mass/volume)Ordered By: ED PROVIDER on 08-16-2022 Albumin [Mass/Vol] 3.9 g/dL 3.2-5.0 [facility] Serum or plasma albumin/glob ulin mass ratioOrdered By: ED PROVIDER on 08-16-2022 Albumin/Globulin [Mass ratio] 1.1 {ratio} 0.9-2.4 [facility] Serum or plasma calcium livia urement (mass/volume)Ordered By: ED PROVIDER on 08-16-2022 Calcium [Mass/Vol] 9.7 mg/dL 8.5-10.1 [facility] Serum or plasma creatinine m easurement (mass/volume)Ordered By: ED PROVIDER on 08-16-2022 Creatinine [Mass/Vol] 0.84 mg/dL 0.70-1.30 [facility] Comment on above: The validity of the calculated GFR & GFRAA in patients over 70 years has not been determined. Clinical correlation is essential. Serum or plasma urea nitroge n measurement (mass/volume)Ordered By: ED PROVIDER on 08-16-2022 Urea nitrogen [Mass/Vol] 25 mg/dL 7-18 [facility] Thin prep Papanicolaou smear with manual screeningOrdered By: ED PROVIDER on 08-16-2022 Thin prep Papanicolaou smear with manual screening 6 5-15 [facility] Thin prep Papanicolaou smear with manual screening 16 U/L 15-37 [facility] Absolute lymphocyte counton 05-27-2022 Lymphocytes Auto (Unsp spec) [#/Vol] 1.28 10*3/uL 0.83-4.51 [facility] Work Phone: Basophil percentageon 2021 Basophils/100 WBC (Bld) 0.6 % 0-1 [facility] Work Phone: Bilirubin [Mass/Vol] 1.70 mg/dL 0.20-1.00 [facility] Work Phone: Comment on above: For patients on eltr ombopag therapy, use of Dimension [place] TBIL is not recommended. Chloride [Moles/Vol] 101 mmol/L 98-107 [facility] Work Phone: Eosinophils/100 WBC (Bld) 2.6 % 0-5 [facility] Work Phone: Glucose [Mass/Vol] 179 mg/dL 74-106 [facility] Work Phone: Comment on above: Fasting Glucose resu lt greater than or equal to 126 mg/dL suggests DIABETES MELLITUS per A.D.A. criteria. Neutrophils (Bld) [#/Vol] 3.5 10*3/uL 2.0-7.7 [facility] Work Phone: [phone] Neutrophils/100 WBC (Bld) 65.6 % 47-70 [facility] Work Phone: Potassium [Moles/Vol] 3.8 mmol/L 3.5-5.1 [facility] Work Phone: Protein [Mass/Vol] 8.0 g/dL 6.4-8.2 [facility]: Sodium [Moles/Vol] 137 mmol/L 136-145 [facility] Work Phone: WBC (Bld) [#/Vol] 5.4 10*3/uL 4.4-11.0 [facility] Work Phone: Blood erythrocytes count (nu mber/volume)on 05-27-2022 RBC (Bld) [#/Vol] 5.17 10*6/uL 4.6-6.2 [facility]: Blood hemoglobin measurement (mass/volume)on 05-27-2022 Hemoglobin (Bld) [Mass/Vol] 14.5 g/dL 13.0-16.5 [facility] Work Phone: Blood lymphocytes/100 leukoc yteson 05-27-2022 Lymphocytes/100 WBC (Bld) 23.8 % 19-41 [facility] Work Phone: Blood monocytes/100 leukocyt eson 05-27-2022 Monocytes/100 WBC (Bld) 7.2 % 0-10 [facility] Work Phone: Blood platelet mean volumeon 05-27-2022 Platelet mean volume (Bld) [Entitic vol] 9.7 fL 6.2-12.0 [facility] Work Phone: Determination of erythrocyte mean corpuscular volume (MCV)on 05-27-2022 MCV (RBC) [Entitic vol] 81.8 fL 80-94 [facility] Work Phone: Hematocrit Auto (Bld) [Volum e fraction]on 05-27-2022 Hematocrit (Bld) [Volume fraction] 42.3 % 40-54 [facility] Work Phone: Laboratory - Chemistry and C hemistry - challengeon 05-27-2022 ALP [Catalytic activity/Vol] 69 U/L 45-117 [facility] Work Phone: ALT [Catalytic activity/Vol] 41 U/L 16-61 [facility] Work Phone: [phone] CO2 [Moles/Vol] 29.0 mmol/L 21.0-32.0 [facility] Work Phone: Globulin (S) [Mass/Vol] 4.0 g/dL 2.2-4.2 [facility] Work Phone: Urea nitrogen/Creatinine [Mass ratio] 17.6 mg/mg 10-20 [facility] Work Phone: Laboratory - Hematology and Cell countson 05-27-2022 Erythrocyte distribution width (RBC) [Entitic vol] 35.9 fL 35.1-43.9 [facility] Work Phone: Erythrocyte distribution width (RBC) [Ratio] 12.0 % 11.6-14.6 [facility] Work Phone: Immature granulocytes/100 WBC (Bld) 0.200 % 0.0-0.9 [facility] Work Phone: Comment on above: IG% - Immature Granu locytes (promyelocytes, myelocytes and metamyelocytes) > 1% indicates that a LEFT SHIFT is Present. MCH (RBC) [Entitic mass] 28.0 pg 27.0-32.0 [facility] Work Phone: Nucleated RBC/100 WBC (Bld) [Ratio] 0 % 0-5 [facility] Work Phone: MCHC Auto (RBC) [Mass/Vol]on 05-27-2022 MCHC (RBC) [Mass/Vol] 34.3 g/dL 32-36 [facility] Work Phone: No Panel Informationon 05-27 Estimated GFR (MDRD) Amer 108 mL/min >60 [facility] Work Phone: Comment on above: GFR Calc Estimated GFR (MDRD) Non-Af Amer 89 mL/min >60 [facility] Work Phone: Comment on above: Non- GFR Calc Thyroid Stimulating Hormone (TSH) 2.01 uIU/mL 0.358-3.74 [facility] Work Phone: Platelets bldon 05-27-2022 Platelets (Bld) [#/Vol] 251 10*3/uL 150-450 [facility] Work Phone: Serum or plasma albumin livia urement (mass/volume)on 05-27-2022 Albumin [Mass/Vol] 4.0 g/dL 3.2-5.0 [facility] Work Phone: Serum or plasma albumin/glob ulin mass ratioon 05-27-2022 Albumin/Globulin [Mass ratio] 1.0 {ratio} 0.9-2.4 [facility] Work Phone: Serum or plasma calcium livia urement (mass/volume)on 05-27-2022 Calcium [Mass/Vol] 9.3 mg/dL 8.5-10.1 [facility] Work Phone: Serum or plasma creatinine m easurement (mass/volume)on 05-27-2022 Creatinine [Mass/Vol] 0.97 mg/dL 0.70-1.30 [facility] Work Phone: Comment on above: The validity of the calculated GFR & GFRAA in patients over 70 years has not been determined. Clinical correlation is essential. Serum or plasma urea nitroge n measurement (mass/volume)on 05-27-2022 Urea nitrogen [Mass/Vol] 17 mg/dL 7-18 [facility] Work Phone: Thin prep Papanicolaou smear with manual screeningon 05-27-2022 Thin prep Papanicolaou smear with manual screening 20 U/L 15-37 [facility] Work Phone: Thin prep Papanicolaou smear with manual screening 7 5-15 [facility] Work Phone: Absolute lymphocyte counton 02-19-2022 Lymphocytes Auto (Unsp spec) [#/Vol] 1.56 10*3/uL 0.83-4.51 [facility] Work Phone: Basophil percentageon 2021 Basophils/100 WBC (Bld) 0.4 % 0-1 [facility] Work Phone: Bilirubin [Mass/Vol] 1.90 mg/dL 0.20-1.00 [facility] Work Phone: Comment on above: For patients on eltr ombopag therapy, use of Dimension [place] TBIL is not recommended. Chloride [Moles/Vol] 104 mmol/L 98-107 [facility] Work Phone: Eosinophils/100 WBC (Bld) 5.1 % 0-5 [facility] Work Phone: Glucose [Mass/Vol] 142 mg/dL 74-106 [facility] Work Phone: Comment on above: Fasting Glucose resu lt greater than or equal to 126 mg/dL suggests DIABETES MELLITUS per A.D.A. criteria. Neutrophils (Bld) [#/Vol] 2.3 10*3/uL 2.0-7.7 [facility] Work Phone: Neutrophils/100 WBC (Bld) 52.0 % 47-70 [facility] Work Phone: Potassium [Moles/Vol] 3.7 mmol/L 3.5-5.1 [facility] Work Phone: Protein [Mass/Vol] 7.5 g/dL 6.4-8.2 [facility] Work Phone: Sodium [Moles/Vol] 137 mmol/L 136-145 [facility] Work Phone: WBC (Bld) [#/Vol] 4.5 10*3/uL 4.4-11.0 [facility] Work Phone: Blood erythrocytes count (nu mber/volume)on 02-19-2022 RBC (Bld) [#/Vol] 5.19 10*6/uL 4.6-6.2 [facility] Work Phone: [phone] Blood hemoglobin measurement (mass/volume)on 02-19-2022 Hemoglobin (Bld) [Mass/Vol] 14.5 g/dL 13.0-16.5 [facility] Work Phone: Blood lymphocytes/100 leukoc yteson 02-19-2022 Lymphocytes/100 WBC (Bld) 34.7 % 19-41 [facility] Work Phone: Blood monocytes/100 leukocyt eson 02-19-2022 Monocytes/100 WBC (Bld) 7.6 % 0-10 [facility] Work Phone: Blood platelet mean volumeon 02-19-2022 Platelet mean volume (Bld) [Entitic vol] 9.6 fL 6.2-12.0 [facility] Work Phone: [phone] Determination of erythrocyte mean corpuscular volume (MCV)on 02-19-2022 MCV (RBC) [Entitic vol] 83.4 fL 80-94 [facility] Work Phone: [phone] Hematocrit Auto (Bld) [Volum e fraction]on 02-19-2022 Hematocrit (Bld) [Volume fraction] 43.3 % 40-54 [facility] Work Phone: [phone] Laboratory - Chemistry and C hemistry - challengeon 02-19-2022 ALP [Catalytic activity/Vol] 62 U/L 45-117 [facility] Work Phone: ALT [Catalytic activity/Vol] 39 U/L 16-61 [facility] Work Phone: [phone] CO2 [Moles/Vol] 29.0 mmol/L 21.0-32.0 [facility] Work Phone: [phone] Globulin (S) [Mass/Vol] 3.6 g/dL 2.2-4.2 [facility] Work Phone: [phone] Urea nitrogen/Creatinine [Mass ratio] 17.8 mg/mg 10-20 [facility] Work Phone: Laboratory - Hematology and Cell countson 02-19-2022 Erythrocyte distribution width (RBC) [Entitic vol] 36.1 fL 35.1-43.9 [facility] Work Phone: Erythrocyte distribution width (RBC) [Ratio] 11.9 % 11.6-14.6 [facility] Work Phone: Immature granulocytes/100 WBC (Bld) 0.200 % 0.0-0.9 [facility] Work Phone: Comment on above: IG% - Immature Granu locytes (promyelocytes, myelocytes and metamyelocytes) > 1% indicates that a LEFT SHIFT is Present. MCH (RBC) [Entitic mass] 27.9 pg 27.0-32.0 [facility] Work Phone: Nucleated RBC/100 WBC (Bld) [Ratio] 0 % 0-5 [facility] Work Phone: MCHC Auto (RBC) [Mass/Vol]on 02-19-2022 MCHC (RBC) [Mass/Vol] 33.5 g/dL 32-36 [facility] Work Phone: No Panel Informationon 02-19 Estimated GFR (MDRD) Amer 126 mL/min >60 [facility] Work Phone: Comment on above: GFR Calc Estimated GFR (MDRD) Non-Af Amer 105 mL/min >60 [facility] Work Phone: Comment on above: Non- GFR Calc Thyroid Stimulating Hormone (TSH) 1.43 uIU/mL 0.358-3.74 [facility] Work Phone: Platelets bldon 02-19-2022 Platelets (Bld) [#/Vol] 220 10*3/uL 150-450 [facility] Work Phone: Serum or plasma albumin livia urement (mass/volume)on 02-19-2022 Albumin [Mass/Vol] 3.9 g/dL 3.2-5.0 [facility] Work Phone: Serum or plasma albumin/glob ulin mass ratioon 02-19-2022 Albumin/Globulin [Mass ratio] 1.1 {ratio} 0.9-2.4 [facility] Work Phone: Serum or plasma calcium livia urement (mass/volume)on 02-19-2022 Calcium [Mass/Vol] 9.1 mg/dL 8.5-10.1 [facility] Work Phone: Serum or plasma creatinine m easurement (mass/volume)on 02-19-2022 Creatinine [Mass/Vol] 0.84 mg/dL 0.70-1.30 [facility] Work Phone: Comment on above: The validity of the calculated GFR & GFRAA in patients over 70 years has not been determined. Clinical correlation is essential. Serum or plasma urea nitroge n measurement (mass/volume)on 02-19-2022 Urea nitrogen [Mass/Vol] 15 mg/dL 7-18 [facility] Work Phone: Thin prep Papanicolaou smear with manual screeningon 02-19-2022 Thin prep Papanicolaou smear with manual screening 20 U/L 15-37 [facility] Work Phone: Thin prep Papanicolaou smear with manual screening 4 5-15 [facility] Work Phone: Glucose Glucometer (BldC) [M ass/Vol]on 11-25-2021 Glucose [Mass/Vol] 132 mg/dL 74-106 [facility] Work Phone: Comment on above: MANAGEMENT OF PATIEN T CARE PER NURSING PROTOCOL Absolute lymphocyte counton 11-12-2021 Lymphocytes Auto (Unsp spec) [#/Vol] 1.51 10*3/uL 0.83-4.51 [facility] Work Phone: Basophil percentageon 2021 Basophils/100 WBC (Bld) 0.4 % 0-1 [facility] Work Phone: Bilirubin [Mass/Vol] 1.70 mg/dL 0.20-1.00 [facility] Work Phone: [phone] Comment on above: For patients on eltr ombopag therapy, use of Dimension [place] TBIL is not recommended. Chloride [Moles/Vol] 104 mmol/L 98-107 [facility] Work Phone: Eosinophils/100 WBC (Bld) 3.7 % 0-5 [facility] Work Phone: Glucose [Mass/Vol] 115 mg/dL 74-106 [facility] Work Phone: Comment on above: Fasting Glucose resu lt from 100 to 125 mg/dL suggests IMPAIRED HOMEOSTASIS per A.D.A. criteria. Neutrophils (Bld) [#/Vol] 3.1 10*3/uL 2.0-7.7 [facility] Work Phone: Neutrophils/100 WBC (Bld) 59.8 % 47-70 [facility] Work Phone: Potassium [Moles/Vol] 3.5 mmol/L 3.5-5.1 [facility] Work Phone: Protein [Mass/Vol] 7.6 g/dL 6.4-8.2 [facility] Work Phone: Sodium [Moles/Vol] 137 mmol/L 136-145 [facility] Work Phone: WBC (Bld) [#/Vol] 5.2 10*3/uL 4.4-11.0 [facility] Work Phone: Blood erythrocytes count (nu mber/volume)on 11-12-2021 RBC (Bld) [#/Vol] 4.82 10*6/uL 4.6-6.2 [facility] Work Phone: Blood hemoglobin measurement (mass/volume)on 11-12-2021 Hemoglobin (Bld) [Mass/Vol] 13.7 g/dL 13.0-16.5 [facility] Work Phone: Blood lymphocytes/100 leukoc yteson 11-12-2021 Lymphocytes/100 WBC (Bld) 29.0 % 19-41 [facility] Work Phone: Blood monocytes/100 leukocyt eson 11-12-2021 Monocytes/100 WBC (Bld) 6.7 % 0-10 [facility] Work Phone: Blood platelet mean volumeon 11-12-2021 Platelet mean volume (Bld) [Entitic vol] 9.7 fL 6.2-12.0 [facility] Work Phone: [phone] Determination of erythrocyte mean corpuscular volume (MCV)on 11-12-2021 MCV (RBC) [Entitic vol] 82.6 fL 80-94 [facility] Work Phone: Hematocrit Auto (Bld) [Volum e fraction]on 11-12-2021 Hematocrit (Bld) [Volume fraction] 39.8 % 40-54 [facility] Work Phone: [phone] Laboratory - Chemistry and C hemistry - challengeon 11-12-2021 ALP [Catalytic activity/Vol] 62 U/L 45-117 [facility] Work Phone: ALT [Catalytic activity/Vol] 29 U/L 16-61 [facility] Work Phone: CO2 [Moles/Vol] 28.0 mmol/L 21.0-32.0 [facility] Work Phone: [phone] Cobalamin (Vitamin B12) [Mass/Vol] 470 pg/mL 211-911 [facility] Work Phone: [phone] Globulin (S) [Mass/Vol] 3.7 g/dL 2.2-4.2 [facility] Work Phone: [phone] Urea nitrogen/Creatinine [Mass ratio] 21.7 mg/mg 10-20 [facility] Work Phone: Laboratory - Hematology and Cell countson 11-12-2021 Erythrocyte distribution width (RBC) [Entitic vol] 37.5 fL 35.1-43.9 [facility] Work Phone: [phone] Erythrocyte distribution width (RBC) [Ratio] 12.4 % 11.6-14.6 [facility] Work Phone: Immature granulocytes/100 WBC (Bld) 0.400 % 0.0-0.9 [facility] Work Phone: Comment on above: IG% - Immature Granu locytes (promyelocytes, myelocytes and metamyelocytes) > 1% indicates that a LEFT SHIFT is Present. MCH (RBC) [Entitic mass] 28.4 pg 27.0-32.0 [facility] Work Phone: Nucleated RBC/100 WBC (Bld) [Ratio] 0 % 0-5 [facility] Work Phone: MCHC Auto (RBC) [Mass/Vol]on 11-12-2021 MCHC (RBC) [Mass/Vol] 34.4 g/dL 32-36 [facility] Work Phone: No Panel Informationon 11-12 Estimated GFR (MDRD) Amer 138 mL/min >60 [facility] Work Phone: Comment on above: GFR Calc Estimated GFR (MDRD) Non-Af Amer 114 mL/min >60 [facility] Work Phone: Comment on above: Non- GFR Calc Thyroid Stimulating Hormone (TSH) 1.53 uIU/mL 0.358-3.74 [facility] Work Phone: Platelets bldon 11-12-2021 Platelets (Bld) [#/Vol] 200 10*3/uL 150-450 [facility] Work Phone: Serum or plasma albumin livia urement (mass/volume)on 11-12-2021 Albumin [Mass/Vol] 3.9 g/dL 3.2-5.0 [facility] Work Phone: Serum or plasma albumin/glob ulin mass ratioon 11-12-2021 Albumin/Globulin [Mass ratio] 1.1 {ratio} 0.9-2.4 [facility] Work Phone: Serum or plasma calcium livia urement (mass/volume)on 11-12-2021 Calcium [Mass/Vol] 9.0 mg/dL 8.5-10.1 [facility] Work Phone: Serum or plasma creatinine m easurement (mass/volume)on 11-12-2021 Creatinine [Mass/Vol] 0.78 mg/dL 0.70-1.30 [facility] Work Phone: Comment on above: The validity of the calculated GFR & GFRAA in patients over 70 years has not been determined. Clinical correlation is essential. Serum or plasma urea nitroge n measurement (mass/volume)on 11-12-2021 Urea nitrogen [Mass/Vol] 17 mg/dL 7-18 [facility] Work Phone: Thin prep Papanicolaou smear with manual screeningon 11-12-2021 Thin prep Papanicolaou smear with manual screening 19 U/L 15-37 [facility] Work Phone: Thin prep Papanicolaou smear with manual screening 5 5-15 [facility] Work Phone: Glucose Glucometer (BldC) [M ass/Vol]on 11-02-2021 Glucose [Mass/Vol] 132 mg/dL 70-110 [facility] Work Phone: Comment on above: MANAGEMENT OF PATIEN T CARE PER NURSING PROTOCOL No Panel Informationon 10-30 SARS-CoV-2 Antigen (Rapid) [facility] Work Phone: HGB A1C [CCL]on 06-29-2021 Glucose [Mass/Vol] 140 mg/dL Normal [facility] Comment on above: Result Comment: eAG: (Estimated average glucose) is a calculated value from HgbA1c and is retail wireless sales representative of the average blood glucose level in the last 2-3 month period. [facility] [address] [place] [address] Telly Mcleod III, M.D. [id number] Performed By: #### 2 [id number] #### [facility],[address] [place] [address] HbA1c (Bld) [Mass fraction] 6.5 % High 4.3-5.6 [facility] Comment on above: Result Comment: Amer [place] Diabetes Association guidelines indicate that patients with HgbA1c in the range 5.7-6.4% are at increased risk for development of diabetes, and intervention by lifestyle modification may be beneficial. HgbA1c greater or equal to 6.5% is considered diagnostic of diabetes. Performed By: #### 2 [id number] #### [facility],[address] [place], [place] [id number] Hemoglobin A1con 06-29-2021 Glucose [Mass/Vol] 140 mg/dL Normal [facility] Comment on above: Performed By: #### H BA1C #### [facility] Routine Lab [address] [address] HbA1c (Bld) [Mass fraction] 6.5 % High 4.3-5.6 [facility] Comment on above: Performed By: #### H BA1C #### [facility] Routine Lab [address] [address] CBC + DIFFon 06-26-2021 Baso # 0.00 x10EE3/UL Normal 0.00 - 0.10 [facility] Comment on above: Performed By: #### 2 [id number] #### [facility],[address] [place] [address] Basophils/100 WBC (Bld) 0.7 % Normal 0.0 - 2.0 [facility] Comment on above: Performed By: #### 2 73060 #### [facility],[address] [place] [address] CBC + DIFF Normal [facility] Comment on above: Result Comment: CBC- COMPLETE BLOOD COUNT Performed By: #### 2 71621 #### [facility],[address] [place] [address] EO # 0.20 x10EE3/UL Normal 0.00 - 0.50 [facility] Comment on above: Performed By: #### 2 76343 #### [facility],[address] [place] [address] Eosinophils/100 WBC (Bld) 5.8 % Normal 0.0 - 7.0 [facility] Comment on above: Performed By: #### 2 88952 #### [facility],[address] [place] [address] Erythrocyte distribution width (RBC) [Ratio] 13.1 % Normal 12.0 - 15.6 [facility] Comment on above: Performed By: #### 2 11350 #### [facility],[address] [place] [address] Hematocrit (Bld) [Volume fraction] 41.0 % Normal 40.0 - 52.0 [facility] Comment on above: Performed By: #### 2 92618 #### [facility],[address] [place] [address] Hemoglobin (Bld) [Mass/Vol] 14.3 g/dL Normal 13.0 - 17.5 [facility] Comment on above: Performed By: #### 2 68529 #### [facility],[address] [place] [address] Lymph # 1.10 x10EE3/UL Normal 0.80 - 2.80 [facility] Comment on above: Performed By: #### 2 59654 #### [facility],[address] [place], [place] [id number] Lymphocytes/100 WBC (Bld) 27.1 % Normal 20.0 - 45.0 [facility] Comment on above: Performed By: #### 2 03627 #### [facility],[address] [place] [address] MANUAL DIFF N/A Normal [facility] Comment on above: Performed By: #### 2 35098 #### [facility],[address] [place], [place] [id number] MCH (RBC) [Entitic mass] 28 pg Normal 27 - 33 [facility] Comment on above: Performed By: #### 2 90465 #### [facility],[address] [place] [address] MCHC 35 X10 3 Normal 32 - 36 [facility] Comment on above: Performed By: #### 2 62346 #### [facility],[address] [place] [address] MCV (RBC) [Entitic vol] 81 fL Normal 81 - 98 [facility] Comment on above: Performed By: #### 2 95709 #### [facility],[address] [place] [address] [place] # 0.30 x10EE3/UL Normal 0.20 - 1.00 [facility] Comment on above: Performed By: #### 2 66702 #### [facility],[address] [place] [address] MONOS % 6.9 % Normal 0.0 - 10.0 [facility] Comment on above: Performed By: #### 2 36925 #### [facility],[address] [place] [address] Morphology Zhen (Bld) [Interp] N/A Normal [facility] Comment on above: Result Comment: {CD] Performed By: #### 2 [id number] #### [facility],[address] [place] [address] Neut # 2.50 x10EE3/UL Normal 1.50 - 7.10 [facility] Comment on above: Performed By: #### 2 14631 #### [facility],[address] [place] [address] Neutrophils/100 WBC (Bld) 59.5 % Normal 46.0 - 76.0 [facility] Comment on above: Performed By: #### 2 05712 #### [facility],[address] [place] [address] PLATELET 222 x10EE3/UL Normal 150 - 450 [facility] Comment on above: Performed By: #### 2 60517 #### [facility],[address] [place] [address] Platelet mean volume (Bld) [Entitic vol] 7.8 fL Normal 6.4 - 10.5 [facility] Comment on above: Result Comment: AUTO MATED DIFFERENTIAL Performed By: #### 2 35210 #### [facility],[address] [place] [address] RBC 5.06 x 10EE6/UL Normal 4.50 - 6.00 [facility] Comment on above: Performed By: #### 2 11010 #### [facility],[address] [place], [place] [id number] WBC 4.2 x 10EE3/UL Low 4.5 - 10.8 [facility] Comment on above: Performed By: #### 2 21245 #### [facility],[address] [place] [address] CMP with eGFRon 06-26-2021 AGE 46 years Normal [facility] Comment on above: Performed By: #### 2 97762 #### [place] [id number] Albumin [Mass/Vol] 4.1 g/dL Normal 3.4 - 5.0 [facility] Comment on above: Performed By: #### 2 35667 #### [place] [id number] Albumin/Globulin [Mass ratio] 1.2 {ratio} Normal 0.9 - 1.6 [facility] Comment on above: Performed By: #### 2 42417 #### [address] [address] ALK PHOS 53 U/L Normal 46 - 116 [facility] Comment on above: Performed By: #### 2 33048 #### [address] [address] ALT [Catalytic activity/Vol] 45 U/L Normal 16 - 63 [facility] Comment on above: Performed By: #### 2 61896 #### [facility],[address] [place] [address] 85473 Anion gap [Moles/Vol] 15 mmol/L Normal 10 - 20 [facility] Comment on above: Performed By: #### 2 80249 #### [facility],[address] [place] [address] 18276 AST [Catalytic activity/Vol] 25 U/L Normal 15 - 37 [facility] Comment on above: Performed By: #### 2 78370 #### [facility],[address] [place] [address] 43721 B/C RATIO 25 ratio Normal 0 - 30 [facility] Comment on above: Performed By: #### 2 21157 #### [facility],[address] [place] [address] 66349 Bilirubin [Mass/Vol] 1.6 mg/dL High 0.2 - 1.0 [facility] Comment on above: Performed By: #### 2 91490 #### [facility],[address] [place] [address] 82084 Calcium [Mass/Vol] 8.5 mg/dL Normal 8.5 - 10.1 [facility] Comment on above: Performed By: #### 2 86635 #### [facility],[address] [place] [address] 93775 Chloride [Moles/Vol] 101 mmol/L Normal 98 - 107 [facility] Comment on above: Performed By: #### 2 70817 #### [facility],[address] [place] [address] 22877 CMP with eGFR Normal [facility] Comment on above: Result Comment: COMP REHENSIVE METABOLIC PANEL Performed By: #### 2 85655 #### [facility],[address] [place] [address] 16789 CO2 [Moles/Vol] 26.0 mmol/L Normal 21.0 - 32.0 [facility] Comment on above: Performed By: #### 2 77417 #### [address] [address] Creatinine [Mass/Vol] 0.79 mg/dL Normal 0.70 - 1.30 [facility] Comment on above: Performed By: #### 2 76851 #### [address] [address] GFR/1.73 sq M.predicted among non-blacks MDRD (S/P/Bld) [Vol rate/Area] mL/min/{1.73_m2} Normal 60 - 999 [facility] Comment on above: Performed By: #### 2 98878 #### [address] [address] Result Comment: ACCO RDING TO THE NATIONAL KIDNEY DISEASE EDUCATION PROGRAM(NKDE), A NORMAL eGFR IS A VALUE GREATER THAN OR EQUAL TO 60 ML/MIN/1.73 SQ METERS. CHRONIC KIDNEY DISEASE: <60mL/MIN/1.73 SQ METERS KIDNEY FAILURE: <15mL/MIN/1.73 SQ METERS THIS TEST SHOULD ONLY BE USED FOR PATIENTS 18 YEARS OF AGE AND OLDER. Globulin (S) [Mass/Vol] 3.3 g/dL Normal 1.5 - 3.8 [facility] Comment on above: Performed By: #### 2 88958 #### [address] [address] Glucose [Mass/Vol] 148 mg/dL High 74 - 106 [facility] Comment on above: Performed By: #### 2 34205 #### [address] [address] Potassium [Moles/Vol] 3.7 mmol/L Normal 3.5 - 5.1 [facility] Comment on above: Performed By: #### 2 17667 #### [address] [place] [address] Protein [Mass/Vol] 7.4 g/dL Normal 6.4 - 8.2 [facility] Comment on above: Performed By: #### 2 74478 #### [facility],[address] [place] [address] 84754 Sodium [Moles/Vol] 138 mmol/L Normal 136 - 145 [facility] Comment on above: Performed By: #### 2 15869 #### [facility],[address] [place] [address] 58149 Urea nitrogen [Mass/Vol] 20 mg/dL High 7 - 18 [facility] Comment on above: Performed By: #### 2 43453 #### [facility],[address] [place] [address] 77644 LIPID PROFILEon 06-26-2021 Cholesterol [Mass/Vol] 129 mg/dL Normal 0 - 240 [facility] Comment on above: Performed By: #### 2 55777 #### [facility],[address] [place] [address] 32956 Cholesterol in HDL [Mass/Vol] 32 mg/dL Low 40 - 60 [facility] Comment on above: Performed By: #### 2 18223 #### [facility],[address] [place] [address] 37254 Cholesterol in LDL [Mass/Vol] 75 mg/dL Normal 0 - 129 [facility] Comment on above: Performed By: #### 2 89735 #### [facility],[address] [place] [address] 39382 Cholesterol.total/Mary sterol in HDL [Mass ratio] 4.0 {ratio} Normal 0.0 - 5.0 [facility] Comment on above: Performed By: #### 2 76903 #### [facility],[address] [place] [address] 21782 Lipid 1996 panel Normal [facility] Comment on above: Result Comment: LIPI D PROFILE Performed By: #### 2 92831 #### [facility],[address] [place] [address] 69521 Triglyceride [Mass/Vol] 112 mg/dL Normal 0 - 150 J l [facility] Comment on above: Performed By: #### 2 54886 #### [address] [address] T4-FREE (FREE THYROXINE)on Free T4 [Mass/Vol] 1.18 ng/dL Normal 0.76 - 1.46 [facility] Comment on above: Result Comment: P otential of falsely elevated results when biotin concentrations are > 10 ng/mL. Performed By: #### 2 26909 #### [address] [address] TSHon 06-26-2021 TSH Qn 1.38 m[IU]/L Normal 0.35 - 3.74 [facility] Comment on above: Performed By: #### 2 37711 #### [address] [address] HGB A1C [CCL]on 02-01-2021 Glucose [Mass/Vol] 143 mg/dL Normal [facility] Comment on above: Result Comment: eAG: (Estimated average glucose) is a calculated value from HgbA1c and is retail wireless sales representative of the average blood glucose level in the last 2-3 month period. [facility] [address] [place] [address] Telly Mcleod III, M.D. [id number] Performed By: #### 2 12816 #### [address] [address] HbA1c (Bld) [Mass fraction] 6.6 % High 4.3-5.6 [facility] Comment on above: Result Comment: Amer ican Diabetes Association guidelines indicate that patients with HgbA1c in the range 5.7-6.4% are at increased risk for development of diabetes, and intervention by lifestyle modification may be beneficial. HgbA1c greater or equal to 6.5% is considered diagnostic of diabetes. Performed By: #### 2 44376 #### [facility],[address] [place], [place] [id number] Hemoglobin A1con 02-01-2021 Glucose [Mass/Vol] 143 mg/dL Normal [facility] Comment on above: Performed By: #### H BA1C #### [facility] [address] [address] HbA1c (Bld) [Mass fraction] 6.6 % High 4.3-5.6 [facility] Comment on above: Performed By: #### H BA1C #### [facility] [address] [address] CBC + DIFFon 01-30-2021 Baso # 0.00 x10EE3/UL Normal 0.00 - 0.10 [facility] Comment on above: Performed By: #### 2 14807 #### [facility],[address] [place] [address] Basophils/100 WBC (Bld) 0.6 % Normal 0.0 - 2.0 [facility] Comment on above: Performed By: #### 2 41344 #### [place] [address] CBC + DIFF Normal [facility] Comment on above: Result Comment: CBC- COMPLETE BLOOD COUNT Performed By: #### 2 82495 #### [facility],[address] [place] [address] EO # 0.20 x10EE3/UL Normal 0.00 - 0.50 [facility] Comment on above: Performed By: #### 2 28681 #### [address] [address] Eosinophils/100 WBC (Bld) 3.8 % Normal 0.0 - 7.0 [facility] Comment on above: Performed By: #### 2 48894 #### [place] [address],[place] [address] Erythrocyte distribution width (RBC) [Ratio] 13.4 % Normal 12.0 - 15.6 [facility] Comment on above: Performed By: #### 2 00146 #### [facility],[address] [place] [address] Hematocrit (Bld) [Volume fraction] 42.1 % Normal 40.0 - 52.0 [facility] Comment on above: Performed By: #### 2 57175 #### [facility],[address] [place] [address] Hemoglobin (Bld) [Mass/Vol] 14.4 g/dL Normal 13.0 - 17.5 [facility] Comment on above: Performed By: #### 2 16099 #### [facility],[address] [place] [address] Lymph # 1.40 x10EE3/UL Normal 0.80 - 2.80 [facility] Comment on above: Performed By: #### 2 86868 #### [facility],[address] [place], [place] [id number] Lymphocytes/100 WBC (Bld) 26.5 % Normal 20.0 - 45.0 [facility] Comment on above: Performed By: #### 2 15753 #### [facility],[address] [place], [place] [address] MANUAL DIFF N/A Normal [facility] Comment on above: Performed By: #### 2 49589 #### [facility],[address] [place] [address] 20848 MCH (RBC) [Entitic mass] 28 pg Normal 27 - 33 [facility] Comment on above: Performed By: #### 2 29939 #### [facility],[address] [place] [address] 30389 MCHC 34 X10 3 Normal 32 - 36 [facility] Comment on above: Performed By: #### 2 33262 #### [facility],[address] [place] [address] 43341 MCV (RBC) [Entitic vol] 83 fL Normal 81 - 98 [facility] Comment on above: Performed By: #### 2 87967 #### [facility],[address] [place] [address] 06948 [place] # 0.40 x10EE3/UL Normal 0.20 - 1.00 [facility] Comment on above: Performed By: #### 2 12001 #### [facility],[address] [place] [address] 11904 MONOS % 7.1 % Normal 0.0 - 10.0 [facility] Comment on above: Performed By: #### 2 59597 #### [facility],[address] [place] [address] 79300 Morphology Zhen (Bld) [Interp] N/A Normal [facility] Comment on above: Result Comment: {CD] Performed By: #### 2 84357 #### [facility],[address] [place] [address] 58080 Neut # 3.30 x10EE3/UL Normal 1.50 - 7.10 [facility] Comment on above: Performed By: #### 2 30318 #### [facility],[address] [place] [address] 97533 Neutrophils/100 WBC (Bld) 62.0 % Normal 46.0 - 76.0 [facility] Comment on above: Performed By: #### 2 44375 #### [facility],[address] [place] [address] 05339 PLATELET 228 x10EE3/UL Normal 150 - 450 [facility] Comment on above: Performed By: #### 2 00973 #### [facility],[address] [place] [address] 11685 Platelet mean volume (Bld) [Entitic vol] 8.1 fL Normal 6.4 - 10.5 [facility] Comment on above: Result Comment: AUTO MATED DIFFERENTIAL Performed By: #### 2 01415 #### [facility],[address] [place] [address] 46891 RBC 5.10 x 10EE6/UL Normal 4.50 - 6.00 [facility] Comment on above: Performed By: #### 2 31659 #### [facility],[address] [place] [address] 76247 WBC 5.2 x 10EE3/UL Normal 4.5 - 10.8 [facility] Comment on above: Performed By: #### 2 94322 #### [facility],[address] [place] [address] 46845 CMP with eGFRon 01-30-2021 AGE 45 years Normal [facility] Comment on above: Performed By: #### 2 47538 #### [facility],[address] [place] [address] 80972 Albumin [Mass/Vol] 4.2 g/dL Normal 3.4 - 5.0 [facility] Comment on above: Performed By: #### 2 75155 #### [facility],[address] [place] [address] 78296 Albumin/Globulin [Mass ratio] 1.2 {ratio} Normal 0.9 - 1.6 [facility] Comment on above: Performed By: #### 2 79125 #### [facility],[address] [place] [address] 70656 ALK PHOS 56 U/L Normal 46 - 116 [facility] Comment on above: Performed By: #### 2 55554 #### [facility],[address] [place] [address] 67066 ALT [Catalytic activity/Vol] 45 U/L Normal 16 - 63 [facility] Comment on above: Performed By: #### 2 06834 #### [facility],[address] [place] [address] 79344 Anion gap [Moles/Vol] 12 mmol/L Normal 10 - 20 [facility] Comment on above: Performed By: #### 2 94142 #### [facility],[address] [place] [address] 12786 AST [Catalytic activity/Vol] 26 U/L Normal 15 - 37 [facility] Comment on above: Performed By: #### 2 61240 #### [facility],[address] [place] [address] 23489 B/C RATIO 29 ratio Normal 0 - 30 [facility] Comment on above: Performed By: #### 2 44680 #### [facility],[address] [place] [address] 63130 Bilirubin [Mass/Vol] 1.4 mg/dL High 0.2 - 1.0 [facility] Comment on above: Performed By: #### 2 38576 #### [facility],[address] [place] [address] 09178 Calcium [Mass/Vol] 8.8 mg/dL Normal 8.5 - 10.1 [facility] Comment on above: Performed By: #### 2 75340 #### [facility],[address] [place] [address] 08427 Chloride [Moles/Vol] 101 mmol/L Normal 98 - 107 [facility] Comment on above: Performed By: #### 2 38277 #### [facility],[address] [place] [address] 13979 CMP with eGFR Normal [facility] Comment on above: Result Comment: COMP REHENSIVE METABOLIC PANEL Performed By: #### 2 80071 #### [facility],[address] [place] [address] 37438 CO2 [Moles/Vol] 29.7 mmol/L Normal 21.0 - 32.0 [facility] Comment on above: Performed By: #### 2 70341 #### [facility],[address] [place] [address] 65761 Creatinine [Mass/Vol] 0.85 mg/dL Normal 0.70 - 1.30 [facility] Comment on above: Performed By: #### 2 42126 #### [facility],[address] [place] [address] 17402 GFR/1.73 sq M.predicted among non-blacks MDRD (S/P/Bld) [Vol rate/Area] mL/min/{1.73_m2} Normal 60 - 999 [facility] Comment on above: Performed By: #### 2 23986 #### [facility],[address] [place] [address] 36342 Result Comment: ACCO RDING TO THE NATIONAL KIDNEY DISEASE EDUCATION PROGRAM(NKDE), A NORMAL eGFR IS A VALUE GREATER THAN OR EQUAL TO 60 ML/MIN/1.73 SQ METERS. CHRONIC KIDNEY DISEASE: <60mL/MIN/1.73 SQ METERS KIDNEY FAILURE: <15mL/MIN/1.73 SQ METERS THIS TEST SHOULD ONLY BE USED FOR PATIENTS 18 YEARS OF AGE AND OLDER. Globulin (S) [Mass/Vol] 3.5 g/dL Normal 1.5 - 3.8 [facility] Comment on above: Performed By: #### 2 81129 #### [facility],[address] [place] [address] 16072 Glucose [Mass/Vol] 133 mg/dL High 74 - 106 [facility] Comment on above: Performed By: #### 2 67689 #### [facility],[address] [place] [address] 72014 Potassium [Moles/Vol] 3.7 mmol/L Normal 3.5 - 5.1 [facility] Comment on above: Performed By: #### 2 66474 #### [facility],[address] [place] [address] 82512 Protein [Mass/Vol] 7.7 g/dL Normal 6.4 - 8.2 [facility] Comment on above: Performed By: #### 2 64436 #### [facility],[address] [place] [address] 74736 Sodium [Moles/Vol] 139 mmol/L Normal 136 - 145 [facility] Comment on above: Performed By: #### 2 77457 #### [facility],[address] [place] [address] 52467 Urea nitrogen [Mass/Vol] 25 mg/dL High 7 - 18 [facility] Comment on above: Performed By: #### 2 06645 #### [facility],[address] [place] [address] 37349 LIPID PROFILEon 01-30-2021 Cholesterol [Mass/Vol] 136 mg/dL Normal 0 - 240 [facility] Comment on above: Performed By: #### 2 28740 #### [facility],[address] [place] [address] 65054 Cholesterol in HDL [Mass/Vol] 36 mg/dL Low 40 - 60 [facility] Comment on above: Performed By: #### 2 87715 #### [facility],[address] [place] [address] 37157 Cholesterol in LDL [Mass/Vol] 74 mg/dL Normal 0 - 129 [facility] Comment on above: Performed By: #### 2 43186 #### [facility],[address] [place] [address] 21214 Cholesterol.total/Mary sterol in HDL [Mass ratio] 3.8 {ratio} Normal 0.0 - 5.0 [facility] Comment on above: Performed By: #### 2 58859 #### [facility],[address] [place] [address] 90152 Lipid 1996 panel Normal [facility] Comment on above: Result Comment: LIPI D PROFILE Performed By: #### 2 04056 #### [facility],[address] [place] [address] 03431 Triglyceride [Mass/Vol] 130 mg/dL Normal 0 - 150 [facility] Comment on above: Performed By: #### 2 64059 #### [facility],[address] [place] [address] 48637 HGB A1C [CCL]on 09-24-2020 Glucose [Mass/Vol] 137 mg/dL Normal [facility] Comment on above: Result Comment: eAG: (Estimated average glucose) is a calculated value from HgbA1c and is retail wireless sales representative of the average blood glucose level in the last 2-3 month period. [facility] [address] [id number] Telly Mcleod III, M.D. [id number] Performed By: #### 2 40516 #### [facility],[address] [place] [address] 39848 HbA1c (Bld) [Mass fraction] 6.4 % High 4.3-5.6 [facility] Comment on above: Result Comment: Amer ican Diabetes Association guidelines indicate that patients with HgbA1c in the range 5.7-6.4% are at increased risk for development of diabetes, and intervention by lifestyle modification may be beneficial. HgbA1c greater or equal to 6.5% is considered diagnostic of diabetes. Performed By: #### 2 01100 #### [facility],[address] [place] [address] 15668 Hemoglobin A1con 09-24-2020 Glucose [Mass/Vol] 137 mg/dL Normal [facility] Comment on above: Performed By: #### H BA1C #### [facility] [address] [id number] HbA1c (Bld) [Mass fraction] 6.4 % High 4.3-5.6 [facility] Comment on above: Performed By: #### H BA1C #### [facility] [address] [id number] LIPID PROFILEon 09-23-2020 Cholesterol [Mass/Vol] 139 mg/dL Normal 0 - 240 [facility] Comment on above: Performed By: #### 2 05784 #### [facility],[address] [place] [address] 15506 Cholesterol in HDL [Mass/Vol] 36 mg/dL Low 40 - 60 [facility] Comment on above: Performed By: #### 2 64576 #### [facility],[address] [place], [place] [id number] Cholesterol in LDL [Mass/Vol] 74 mg/dL Normal 0 - 129 [facility] Comment on above: Performed By: #### 2 19203 #### [facility],[address] [place] [address] Cholesterol.total/Mary sterol in HDL [Mass ratio] 3.9 {ratio} Normal 0.0 - 5.0 [facility] Comment on above: Performed By: #### 2 67259 #### [facility],[address] [place] [address] Lipid 1996 panel Normal [facility] Comment on above: Result Comment: LIPI D PROFILE Performed By: #### 2 99057 #### [facility],[address] [place] [address] Triglyceride [Mass/Vol] 147 mg/dL Normal 0 - 150 [facility] Comment on above: Performed By: #### 2 80506 #### [facility],[address] [place] [address] CBC + DIFFon 09-22-2020 Baso # 0.00 x10EE3/UL Normal 0.00 - 0.10 [facility] Comment on above: Performed By: #### 2 69438 #### [facility],[address] [place], [place] [id number] Basophils/100 WBC (Bld) 0.4 % Normal 0.0 - 2.0 [facility] Comment on above: Performed By: #### 2 55194 #### [facility],[address] [place], [place] [id number] CBC + DIFF Normal [facility] Comment on above: Result Comment: CBC- COMPLETE BLOOD COUNT Performed By: #### 2 41210 #### [facility],[address] [place] [address] EO # 0.20 x10EE3/UL Normal 0.00 - 0.50 [facility] Comment on above: Performed By: #### 2 46158 #### [facility],[address] [place] [address] 49492 Eosinophils/100 WBC (Bld) 2.4 % Normal 0.0 - 7.0 [facility] Comment on above: Performed By: #### 2 72642 #### [facility],[address] [place] [address] Erythrocyte distribution width (RBC) [Ratio] 13.0 % Normal 12.0 - 15.6 [facility] Comment on above: Performed By: #### 2 97988 #### [facility],[address] [place] [address] Hematocrit (Bld) [Volume fraction] 42.9 % Normal 40.0 - 52.0 [facility] Comment on above: Performed By: #### 2 30966 #### [facility],[address] [place] [address] Hemoglobin (Bld) [Mass/Vol] 14.4 g/dL Normal 13.0 - 17.5 [facility] Comment on above: Performed By: #### 2 91869 #### [facility],[address] [place] [address] 07836 Lymph # 1.60 x10EE3/UL Normal 0.80 - 2.80 [facility] Comment on above: Performed By: #### 2 06350 #### [facility],[address] [place] [address] 53061 Lymphocytes/100 WBC (Bld) 24.7 % Normal 20.0 - 45.0 [facility] Comment on above: Performed By: #### 2 88616 #### [facility],[address] [place], [place] [id number] MANUAL DIFF N/A Normal [facility] Comment on above: Performed By: #### 2 50963 #### [facility],[address] [place] [address] MCH (RBC) [Entitic mass] 28 pg Normal 27 - 33 [facility] Comment on above: Performed By: #### 2 19826 #### [facility],[address] [place] [address] MCHC 34 X10 3 Normal 32 - 36 [facility] Comment on above: Performed By: #### 2 49255 #### [facility],[address] [place] [address] MCV (RBC) [Entitic vol] 83 fL Normal 81 - 98 [facility] Comment on above: Performed By: #### 2 98683 #### [facility],[address] [place] [address] [place] # 0.40 x10EE3/UL Normal 0.20 - 1.00 [facility] Comment on above: Performed By: #### 2 77699 #### [facility],[address] [place] [address] MONOS % 6.1 % Normal 0.0 - 10.0 [facility] Comment on above: Performed By: #### 2 89020 #### [facility],[address] [place], [place] [id number] Morphology Zhen (Bld) [Interp] N/A Normal [facility] Comment on above: Result Comment: {CD] Performed By: #### 2 85932 #### [facility],[address] [place] [address] Neut # 4.20 x10EE3/UL Normal 1.50 - 7.10 [facility] Comment on above: Performed By: #### 2 07035 #### [facility],[address] [place] [address] Neutrophils/100 WBC (Bld) 66.4 % Normal 46.0 - 76.0 [facility] Comment on above: Performed By: #### 2 92868 #### [facility],[address] [place] [address] 57284 PLATELET 239 x10EE3/UL Normal 150 - 450 [facility] Comment on above: Performed By: #### 2 69688 #### [facility],[address] [place] [address] 24296 Platelet mean volume (Bld) [Entitic vol] 8.0 fL Normal 6.4 - 10.5 [facility] Comment on above: Result Comment: AUTO MATED DIFFERENTIAL Performed By: #### 2 92406 #### [facility],[address] [place] [address] 44976 RBC 5.17 x 10EE6/UL Normal 4.50 - 6.00 [facility] Comment on above: Performed By: #### 2 47357 #### [facility],[address] [place] [address] 14445 WBC 6.3 x 10EE3/UL Normal 4.5 - 10.8 [facility] Comment on above: Performed By: #### 2 98057 #### [facility],[address] [place] [address] 20430 CMP with eGFRon 09-22-2020 AGE 45 years Normal [facility] Comment on above: Performed By: #### 2 83371 #### [facility],[address] [place] [address] 64485 Albumin [Mass/Vol] 4.5 g/dL Normal 3.4 - 5.0 [facility] Comment on above: Performed By: #### 2 28334 #### [facility],[address] [place] [address] 91889 Albumin/Globulin [Mass ratio] 1.3 {ratio} Normal 0.9 - 1.6 [facility] Comment on above: Performed By: #### 2 00091 #### [facility],[address] [place] [address] 84613 ALK PHOS 66 U/L Normal 46 - 116 [facility] Comment on above: Performed By: #### 2 30682 #### [facility],[address] [place] [address] 23434 ALT [Catalytic activity/Vol] 33 U/L Normal 16 - 63 [facility] Comment on above: Performed By: #### 2 16579 #### [facility],[address] [place] [id number] Anion gap [Moles/Vol] 11 mmol/L Normal 10 - 20 [facility] Comment on above: Performed By: #### 2 [id number] #### [facility],[address] [place] [address] 17232 AST [Catalytic activity/Vol] 18 U/L Normal 15 - 37 [facility] Comment on above: Performed By: #### 2 [id number] #### [facility],[address] [place] [address] 94674 B/C RATIO 24 ratio Normal 0 - 30 [facility] Comment on above: Performed By: #### 2 [id number] #### [facility],[address] [place] [address] 78301 Bilirubin [Mass/Vol] 1.2 mg/dL High 0.2 - 1.0 [facility] Comment on above: Performed By: #### 2 [id number] #### [facility],[address] [place] [address] 90234 Calcium [Mass/Vol] 8.9 mg/dL Normal 8.5 - 10.1 [facility] Comment on above: Performed By: #### 2 [id number] #### [facility],[address] [place] [address] 10157 Chloride [Moles/Vol] 103 mmol/L Normal 98 - 107 [facility] Comment on above: Performed By: #### 2 [id number] #### [facility],[address] [place] [address] 65791 CMP with eGFR Normal [facility] Comment on above: Result Comment: COMP REHENSIVE METABOLIC PANEL Performed By: #### 2 [id number] #### [facility],[address] [place] [address] 62939 CO2 [Moles/Vol] 30.0 mmol/L Normal 21.0 - 32.0 [facility] Comment on above: Performed By: #### 2 50441 #### [facility],[address] [place] [address] 75574 Creatinine [Mass/Vol] 0.9 mg/dL Normal 0.7 - 1.3 [facility] Comment on above: Performed By: #### 2 [id number] #### [facility],[address] [place] [address] 51061 GFR/1.73 sq M.predicted among non-blacks MDRD (S/P/Bld) [Vol rate/Area] mL/min/{1.73_m2} Normal 60 - 999 [facility] Comment on above: Performed By: #### 2 [id number] #### [facility],[address] [place], [place] [id number] Result Comment: ACCO RDING TO THE NATIONAL KIDNEY DISEASE EDUCATION PROGRAM(NKDE), A NORMAL eGFR IS A VALUE GREATER THAN OR EQUAL TO 60 ML/MIN/1.73 SQ METERS. CHRONIC KIDNEY DISEASE: <60mL/MIN/1.73 SQ METERS KIDNEY FAILURE: <15mL/MIN/1.73 SQ METERS THIS TEST SHOULD ONLY BE USED FOR PATIENTS 18 YEARS OF AGE AND OLDER. Globulin (S) [Mass/Vol] 3.5 g/dL Normal 1.5 - 3.8 [facility] Comment on above: Performed By: #### 2 [id number] #### [facility],[address] [place] [address] 85245 Glucose [Mass/Vol] 132 mg/dL High 74 - 106 [facility] Comment on above: Performed By: #### 2 60684 #### [facility],[address] [place] [address] 94388 Potassium [Moles/Vol] 3.8 mmol/L Normal 3.5 - 5.1 [facility] Comment on above: Performed By: #### 2 11799 #### [facility],[address] [place] [address] 61452 Protein [Mass/Vol] 8.0 g/dL Normal 6.4 - 8.2 [facility] Comment on above: Performed By: #### 2 25086 #### [facility],[address] [place] [address] 46471 Sodium [Moles/Vol] 140 mmol/L Normal 136 - 145 [facility] Comment on above: Performed By: #### 2 31429 #### [facility],[address] [place] [address] 13037 Urea nitrogen [Mass/Vol] 22 mg/dL High 7 - 18 [facility] Comment on above: Performed By: #### 2 23811 #### [facility],[address] [place] [address] 11763 SEDRATEon 09-22-2020 SEDRATE 8 mm/hr Normal 0 - 20 [facility] Comment on above: Performed By: #### 2 [id number] #### [facility],[address] [place] [address] 81384 CNOVon 04-13-2020 CNOV Office Visit (WSTR ) SIGIFREDO MCCULLOUGH ([id number]) 1975 M Date Time Provider Department 04/13/20 3:45 PM CURTIS GARBER (TAILOR HELPER) [facility] During your visit today, we recorded the following information about you: Temperature Pulse Respiration Blood pressure 98.9 degrees 87/minute 16/minute 120/82 Weight 124.3 kg Curtis Garber APRN.CNP 04/13/2020 4:24 PM Signed Subjective HPI Nontoxic-appearing male presents urgent care chief complaint boil on head. Duration symptoms 5 days. Associated symptoms drainage from boil and swelling. Swelling was worse yesterday slightly improving today. Patient states history of boils in the past similar signs and symptoms. No pain at rest 3 out of 10 pain if he pushes over the area. No sick contacts. No fevers, visual changes, eye pain, trismus, eye pain with movementm decrease vision, headache. BP 120/82 Pulse 87 Temp 37.2 ?C (98.9 ?F) (Left Tympanic) Resp 16 Wt 124.3 kg (274 lb) .Patient presents with: Abscess: RIGHT side of forehead x 5 days PAST MEDICAL HISTORY Diagnosis Date - Anal fistula PAST SURGICAL HISTORY Procedure Laterality Date - PLACEMENT OF SETON 08/21/08 - REMOVAL ANAL FISTULA,COMPLEX/MULTI 05/16/08 ALLERGIES Patient has no known allergies. MEDICATIONS metFORMIN (GLUCOPHAGE) 1,000 mg tablet Take 1,000 mg by mouth twice daily with meals. lisinopril (ZESTRIL, PRINIVIL) 10 mg tablet Take 10 mg by mouth once daily. pravastatin (PRAVACHOL) 40 mg tablet Take 40 mg by mouth once daily. Auyrz-0-WMJ-EPA-Fish Oil (FISH OIL) 1,000 mg (120 mg-180 mg) cap Take 2 g by mouth twice daily. glipiZIDE (GLUCOTROL) 10 mg tablet Take 10 mg by mouth twice daily before meals. benzonatate (TESSALON PERLE) 100 mg capsule Take 1 capsule by mouth three times daily as needed. History reviewed. No pertinent family history. Social History Tobacco Use - Smoking status: Former Smoker Packs/day: 1.00 Years: 9.00 Pack years: 9.00 Types: Cigarettes Quit date: 08/12/2007 Years since quittin.6 - Smokeless tobacco: Former User Types: Chew Quit date: 08/12/2007 Substance Use Topics - Alcohol use: No - Drug use: No Review of Systems Constitutional: Negative for chills, fever and malaise/fatigue. HENT: Negative for congestion, ear discharge, ear pain, sinus pain and sore throat. Eyes: Negative for blurred vision, double vision, photophobia, pain, discharge and redness. Respiratory: Negative for cough, sputum production, shortness of breath and wheezing. Cardiovascular: Negative for chest pain. Gastrointestinal: Negative for abdominal pain, diarrhea, nausea and vomiting. Musculoskeletal: Negative for myalgias. Skin: Negative for itching and rash. Neurological: Negative for dizziness and headaches. Objective Physical Exam Constitutional: He is oriented to person, place, and time and well-developed, well-nourished, and in no distress. No distress. HENT: Right Ear: Hearing and external ear normal. No drainage, swelling or tenderness. No mastoid tenderness. No decreased hearing is noted. Left Ear: Hearing and external ear normal. No drainage, swelling or tenderness. No mastoid tenderness. No middle ear effusion. No decreased hearing is noted. Mouth/Throat: Uvula is midline, oropharynx is clear and moist and mucous membranes are normal. Eyes: Pupils are equal, round, and reactive to light. Conjunctivae and EOM are normal. Right eye exhibits no chemosis, no discharge and no exudate. Left eye exhibits no chemosis, no discharge and no exudate. Edema noted around either. No pain with movement of eye. Visual acuity unchanged. No drainage. No redness. No pain with palpation to this area. Cardiovascular: Normal rate and regular rhythm. Pulmonary/Chest: Effort normal. No accessory muscle usage. No tachypnea. No respiratory distress. Abdominal: Soft. There is no abdominal tenderness. Lymphadenopathy: Head (right side): Preauricular adenopathy present. No submental, no submandibular, no tonsillar, no posterior auricular and no occipital adenopathy present. Head (left side): No submental, no submandibular, no tonsillar, no preauricular, no posterior auricular and no occipital adenopathy present. He has no cervical adenopathy. Neurological: He is alert and oriented to person, place, and time. Skin: Skin is warm and dry. He is not diaphoretic. Abscess noted on patient's right side head. Spontaneous drainage noted. Periorbital edema noted. No erythema of face or around eye noted. No pain with movement of eye. No pain with palpation around eye. ASSESSMENT/PLAN: 1. Cellulitis of skin - ICD9: 682.9, ICD10: L03.90 Patient placed on doxycycline and Keflex. Will follow up with PCP in morning for reevaluation. The importance of wound reevaluation was stressed. Red flags discussed. Patient was educated on supportive therapies. Patient will follow up with primary care provider as needed. Patient was instructed to immediately proceed to emergency room for any new, worsening, or symptoms lasting longer than anticipated. The patient's clinical presentation is otherwise unremarkable at this time. Based on exam and clinical finding, the patient is stable for discharge. Plan of care was discussed with patient. Patient verbalizes understanding and agrees to plan of care. This note was generated using [employer] software. It may contain errors in wording, punctuation, or spelling. Curtis Garber APRN.ROMEL Garber APRN.CNP 04/13/2020 4:06 PM Signed [facility] PATIENT INFO SKIN INFECTION OVERVIEW Cellulitis is an infection of the skin and soft tissue of the skin. The infection is usually caused by bacteria that normally live on the skin, such as staphylococci (Staph) or streptococci (Strep). The infection develops when there is a break in the skin, such as a wound or injury, which may be minor. This allows bacteria to enter the skin and grow, causing infection and swelling. Most cases of cellulitis are mild and heal completely with antibiotic treatment. However, the infection can become severe and cause a bodywide infection if left untreated. It is important to seek medical care promptly if you could have a skin infection. SKIN INFECTION RISK FACTORS Certain conditions increase the risk of developing cellulitis. These include: ? Recent injury to the skin (a wound, abrasion, cut, recent shaving, or injection drug use) ? Swelling of the skin due to radiation therapy ? Current skin infection, such as athlete's foot or impetigo ? Accumulation of fluid (edema) due to poor circulation, heart failure, liver disease, or past surgery to remove lymph nodes ? Being overweight ? Chronic skin conditions, such as eczema or psoriasis However, cellulitis can also develop in people who have no known risk factors. SKIN INFECTION SYMPTOMS Cellulitis ? The most common symptom of cellulitis is pain or tenderness. Other cellulitis symptoms can include swelling, warmth, and redness in a distinct area of skin. These symptoms usually worsen and the redness may expand over the course of a few days. The skin is usually smooth and shiny rather than raised or bumpy. Fever and chills are not common. The most common areas of the body for cellulitis to develop include the legs and the arms; it can also develop around the eye, on the abdominal wall, in the mouth, and around the anus. Other skin infections ? Other types of skin infections include abscesses, furuncles (boils), and carbuncles. These usually cause a collection of pus under the skin. Skin that is raised, reddened, tender, and pus-filled may be caused by a skin infection known as methicillin-resistant Staphylococcus aureus (MRSA). DO I NEED TO BE EXAMINED? There are many types and causes of skin infections, and it is important to know the most likely cause of the infection before beginning treatment. Using the wrong treatment could allow the infection to worsen. To ensure that the correct treatment is used, it is important to be evaluated by a healthcare provider. SKIN INFECTION TREATMENT Cellulitis treatment includes antibiotics as well as treatment of any underlying condition that led to the skin infection. Elevate the area ? Elevating the arm or leg above the level of the heart can help to reduce swelling and speed healing. Keep the area clean and dry ? It is important to keep the infected area clean and dry. You can shower or bathe normally, and pat the area dry with a clean towel. You can use a bandage or gauze to protect the skin, if needed. Do not use any antibiotic ointments or creams. Antibiotics ? Most people with cellulitis are treated with an antibiotic that is taken by mouth for one to two weeks. The best antibiotic depends upon your situation. If the infection is severe, you may need to be hospitalized and treated with antibiotics given into a vein (IV). It is important to take the antibiotic exactly as recommended and to finish the entire course of treatment. Skipping doses or ending treatment early could potentially allow the bacteria to become resistant and require longer treatment. Time to heal ? The swelling, warmth, and redness should begin to improve within one to three days after starting antibiotics, although these symptoms can persist for two weeks. If the reddened area becomes larger, more swollen, or more tender, call your healthcare provider. He or she may want to reexamine you to determine if further testing or an alternate antibiotic are needed. SKIN INFECTION PROGNOSIS In most cases, you will recover completely from an episode of cellulitis without any complications. If you have skin infection risk factors talk to your healthcare provider to determine if there are steps you can take to minimize the risk of infections in the future. Referring Provider: SELF [[id number]] Allergies As of Date: 04/13/2020 (No Known Allergies) Date Reviewed: 04/13/2020 Reviewed by: Gely Noriega Ma - Fully Assessed Reason for Visit: Abscess [1744] Cmt: RIGHT side of forehead x 5 days Primary Visit Diagnosis:Cellulitis of skin [L03.90] Order(s):doxycycline (VIBRA-TABS) 100 mg tabletTake 1 tablet by mouth twice daily for 7 days.Disp: 14 tabletRfl: 0 cephALEXin (KEFLEX) 500 mg capsuleTake 1 capsule by mouth three times daily for 7 days.Disp: 21 capsuleRfl: 0 Prescriptions as of 04/13/2020 Sig: METFORMIN 1,000 MG TABLET Take 1,000 mg by mouth twice * LISINOPRIL 10 MG TABLET Take 10 mg by mouth once teresa* PRAVASTATIN 40 MG TABLET Take 40 mg by mouth once teresa* OMEGA 8-HUT-SYO-FISH OIL 1,00* Take 2 g by mouth twice daily. GLIPIZIDE 10 MG TABLET Take 10 mg by mouth twice joey* DOXYCYCLINE HYCLATE 100 MG TA* Take 1 tablet by mouth twice * CEPHALEXIN 500 MG CAPSULE Take 1 capsule by mouth three* BENZONATATE 100 MG CAPSULE Take 1 capsule by mouth three* Patient not taking: Reported on 04/13/2020 Problem List As Of Date 04/13/2020 Noted Resolved ROTATOR CUFF SYND NOS [M71.9, M67.919] 06/22/2006 Other instructions from your clinician: [facility] PATIENT INFO SKIN INFECTION OVERVIEW Cellulitis is an infection of the skin and soft tissue of the skin. The infection is usually caused by bacteria that normally live on the skin, such as staphylococci (Staph) or streptococci (Strep). The infection develops when there is a break in the skin, such as a wound or injury, which may be minor. This allows bacteria to enter the skin and grow, causing infection and swelling. Most cases of cellulitis are mild and heal completely with antibiotic treatment. However, the infection can become severe and cause a bodywide infection if left untreated. It is important to seek medical care promptly if you could have a skin infection. SKIN INFECTION RISK FACTORS Certain conditions increase the risk of developing cellulitis. These include: ? Recent injury to the skin (a wound, abrasion, cut, recent shaving, or injection drug use) ? Swelling of the skin due to radiation therapy ? Current skin infection, such as athlete's foot or impetigo ? Accumulation of fluid (edema) due to poor circulation, heart failure, liver disease, or past surgery to remove lymph nodes ? Being overweight ? Chronic skin conditions, such as eczema or psoriasis However, cellulitis can also develop in people who have no known risk factors. SKIN INFECTION SYMPTOMS Cellulitis ? The most common symptom of cellulitis is pain or tenderness. Other cellulitis symptoms can include swelling, warmth, and redness in a distinct area of skin. These symptoms usually worsen and the redness may expand over the course of a few days. The skin is usually smooth and shiny rather than raised or bumpy. Fever and chills are not common. The most common areas of the body for cellulitis to develop include the legs and the arms; it can also develop around the eye, on the abdominal wall, in the mouth, and around the anus. Other skin infections ? Other types of skin infections include abscesses, furuncles (boils), and carbuncles. These usually cause a collection of pus under the skin. Skin that is raised, reddened, tender, and pus-filled may be caused by a skin infection known as methicillin-resistant Staphylococcus aureus (MRSA). DO I NEED TO BE EXAMINED? There are many types and causes of skin infections, and it is important to know the most likely cause of the infection before beginning treatment. Using the wrong treatment could allow the infection to worsen. To ensure that the correct treatment is used, it is important to be evaluated by a healthcare provider. SKIN INFECTION TREATMENT Cellulitis treatment includes antibiotics as well as treatment of any underlying condition that led to the skin infection. Elevate the area ? Elevating the arm or leg above the level of the heart can help to reduce swelling and speed healing. Keep the area clean and dry ? It is important to keep the infected area clean and dry. You can shower or bathe normally, and pat the area dry with a clean towel. You can use a bandage or gauze to protect the skin, if needed. Do not use any antibiotic ointments or creams. Antibiotics ? Most people with cellulitis are treated with an antibiotic that is taken by mouth for one to two weeks. The best antibiotic depends upon your situation. If the infection is severe, you may need to be hospitalized and treated with antibiotics given into a vein (IV). It is important to take the antibiotic exactly as recommended and to finish the entire course of treatment. Skipping doses or ending treatment early could potentially allow the bacteria to become resistant and require longer treatment. Time to heal ? The swelling, warmth, and redness should begin to improve within one to three days after starting antibiotics, although these symptoms can persist for two weeks. If the reddened area becomes larger, more swollen, or more tender, call your healthcare provider. He or she may want to reexamine you to determine if further testing or an alternate antibiotic are needed. SKIN INFECTION PROGNOSIS In most cases, you will recover completely from an episode of cellulitis without any complications. If you have skin infection risk factors talk to your healthcare provider to determine if there are steps you can take to minimize the risk of infections in the future. Prescriptions ordered this encounter Disp Refills Start End DOXYCYCLINE HYCLATE 100 MG TABLET 14 t* 0 04/13/2020 04/20/2020 Route: ORAL Sig: Take 1 tablet by mouth twice daily for 7 days. CEPHALEXIN 500 MG CAPSULE 21 c* 0 04/13/2020 04/20/2020 Route: ORAL Sig: Take 1 capsule by mouth three times daily for 7 days. Encounter Status:Closed by SHIRLENE COOLEY.CURTIS URENA on 04/13/20 [facility] PROGRESSon 04-13-2020 PROGRESS HNO ID: [id number] Author: Curtis (Romel) Shirlene Service: ? Author Type: Nurse Practitioner Type: Progress Notes Filed: 04/13/2020 4:24 PM Note Text: Subjective HPI Nontoxic-appearing male presents urgent care chief complaint boil on head. Duration symptoms 5 days. Associated symptoms drainage from boil and swelling. Swelling was worse yesterday slightly improving today. Patient states history of boils in the past similar signs and symptoms. No pain at rest 3 out of 10 pain if he pushes over the area. No sick contacts. No fevers, visual changes, eye pain, trismus, eye pain with movementm decrease vision, headache. BP 120/82 Pulse 87 Temp 37.2 ?C (98.9 ?F) (Left Tympanic) Resp 16 Wt 124.3 kg (274 lb) .Patient presents with: Abscess: RIGHT side of forehead x 5 days PAST MEDICAL HISTORY Diagnosis Date - Anal fistula PAST SURGICAL HISTORY Procedure Laterality Date - PLACEMENT OF SETON 08/21/08 - REMOVAL ANAL FISTULA,COMPLEX/MULTI 05/16/08 ALLERGIES Patient has no known allergies. MEDICATIONS metFORMIN (GLUCOPHAGE) 1,000 mg tablet Take 1,000 mg by mouth twice daily with meals. lisinopril (ZESTRIL, PRINIVIL) 10 mg tablet Take 10 mg by mouth once daily. pravastatin (PRAVACHOL) 40 mg tablet Take 40 mg by mouth once daily. Flbsf-6-HNU-EPA-Fish Oil (FISH OIL) 1,000 mg (120 mg-180 mg) cap Take 2 g by mouth twice daily. glipiZIDE (GLUCOTROL) 10 mg tablet Take 10 mg by mouth twice daily before meals. benzonatate (TESSALON PERLE) 100 mg capsule Take 1 capsule by mouth three times daily as needed. History reviewed. No pertinent family history. Social History Tobacco Use - Smoking status: Former Smoker Packs/day: 1.00 Years: 9.00 Pack years: 9.00 Types: Cigarettes Quit date: 08/12/2007 Years since quittin.6 - Smokeless tobacco: Former User Types: Chew Quit date: 08/12/2007 Substance Use Topics - Alcohol use: No - Drug use: No Review of Systems Constitutional: Negative for chills, fever and malaise/fatigue. HENT: Negative for congestion, ear discharge, ear pain, sinus pain and sore throat. Eyes: Negative for blurred vision, double vision, photophobia, pain, discharge and redness. Respiratory: Negative for cough, sputum production, shortness of breath and wheezing. Cardiovascular: Negative for chest pain. Gastrointestinal: Negative for abdominal pain, diarrhea, nausea and vomiting. Musculoskeletal: Negative for myalgias. Skin: Negative for itching and rash. Neurological: Negative for dizziness and headaches. Objective Physical Exam Constitutional: He is oriented to person, place, and time and well-developed, well-nourished, and in no distress. No distress. HENT: Right Ear: Hearing and external ear normal. No drainage, swelling or tenderness. No mastoid tenderness. No decreased hearing is noted. Left Ear: Hearing and external ear normal. No drainage, swelling or tenderness. No mastoid tenderness. No middle ear effusion. No decreased hearing is noted. Mouth/Throat: Uvula is midline, oropharynx is clear and moist and mucous membranes are normal. Eyes: Pupils are equal, round, and reactive to light. Conjunctivae and EOM are normal. Right eye exhibits no chemosis, no discharge and no exudate. Left eye exhibits no chemosis, no discharge and no exudate. Edema noted around either. No pain with movement of eye. Visual acuity unchanged. No drainage. No redness. No pain with palpation to this area. Cardiovascular: Normal rate and regular rhythm. Pulmonary/Chest: Effort normal. No accessory muscle usage. No tachypnea. No respiratory distress. Abdominal: Soft. There is no abdominal tenderness. Lymphadenopathy: Head (right side): Preauricular adenopathy present. No submental, no submandibular, no tonsillar, no posterior auricular and no occipital adenopathy present. Head (left side): No submental, no submandibular, no tonsillar, no preauricular, no posterior auricular and no occipital adenopathy present. He has no cervical adenopathy. Neurological: He is alert and oriented to person, place, and time. Skin: Skin is warm and dry. He is not diaphoretic. Abscess noted on patient's right side head. Spontaneous drainage noted. Periorbital edema noted. No erythema of face or around eye noted. No pain with movement of eye. No pain with palpation around eye. ASSESSMENT/PLAN: 1. Cellulitis of skin - ICD9: 682.9, ICD10: L03.90 Patient placed on doxycycline and Keflex. Will follow up with PCP in morning for reevaluation. The importance of wound reevaluation was stressed. Red flags discussed. Patient was educated on supportive therapies. Patient will follow up with primary care provider as needed. Patient was instructed to immediately proceed to emergency room for any new, worsening, or symptoms lasting longer than anticipated. The patient's clinical presentation is otherwise unremarkable at this time. Based on exam and clinical finding, the patient is stable for discharge. Plan of care was discussed with patient. Patient verbalizes understanding and agrees to plan of care. This note was generated using [employer] software. It may contain errors in wording, punctuation, or spelling. Curtis Garber APRN.TAILOR HELPER Normal [facility] Vital Signs Date Time Vital Sign Value Performing Clinician Marylou klein 08-16-2022 15:13-0500 Respiratory rate 20 /min [facility] 08-16-2022 13:04-0500 Diastolic blood pressure 84 mm[Hg] [facility] 08-16-2022 13:04-0500 Heart rate 75 /min [facility] 08-16-2022 13:04-0500 SaO2% (BldA) [Mass fraction] 95 % [facility] 08-16-2022 13:04-0500 Systolic blood pressure 135 mm[Hg] [facility] 08-16-2022 11:07-0500 Body height 178 cm [facility] 08-16-2022 11:07-0500 Body mass index (BMI) [Ratio] 37 kg/m2 [facility] 08-16-2022 11:07-0500 Body temperature 98.6 [degF] [facility] 08-16-2022 11:07-0500 Body weight 117.5 kg [facility] 04-10-2022 20:20-0400 Diastolic blood pressure 78 mm[Hg] [facility] Work Phone: 04-10-2022 20:20-0400 Heart rate 78 /min [facility] Work Phone: 04-10-2022 20:20-0400 Respiratory rate 18 /min [facility] Work Phone: 04-10-2022 20:20-0400 SaO2% (BldA) [Mass fraction] 99 % [facility] Work Phone: 04-10-2022 20:20-0400 Systolic blood pressure 129 mm[Hg] [facility] Work Phone: 04-10-2022 19:37-0400 Body height 177.8 cm [facility] Work Phone: 04-10-2022 19:37-0400 Body mass index (BMI) [Ratio] 34.7 kg/m2 [facility] Work Phone: 04-10-2022 19:37-0400 Body temperature 97.8 [degF] [facility] Work Phone: 04-10-2022 19:37-0400 Body weight 109.76 kg [facility] Work Phone: 11-25-2021 14:42-0400 Body temperature 97.3 [degF] Dr. Angel Pang Work Phone: [facility] Work Phone: 11-25-2021 14:42-0400 Diastolic blood pressure 58 mm[Hg] Dr. Angel Pang Work Phone: [facility] Work Phone: 11-25-2021 14:42-0400 Heart rate 74 /min Dr. Angel Pang Work Phone: [facility] Work Phone: 11-25-2021 14:42-0400 Respiratory rate 16 /min Dr. Angel Pang Work Phone: [facility] Work Phone: 11-25-2021 14:42-0400 SaO2% (BldA) [Mass fraction] 95 % Dr. Angel Pang Work Phone: [facility] Work Phone: 11-25-2021 14:42-0400 Systolic blood pressure 108 mm[Hg] Dr. Angel Pang Work Phone: [facility] Work Phone: 11-25-2021 08:55-0400 Body height 177.[address] Angel Pang Work Phone: [facility] Work Phone: 11-25-2021 08:55-0400 Body mass index (BMI) [Ratio] 34.1 kg/m2 Dr. Angel Pang Work Phone: [facility] Work Phone: 11-25-2021 08:55-0400 Body weight [address] Angel Pang Work Phone: [facility] Work Phone: 11-02-2021 06:20-0500 Body temperature 98 [degF] Dr. Angel Pang Work Phone: [facility] Work Phone: 11-02-2021 06:20-0500 Diastolic blood pressure 71 mm[Hg] Dr. Angel Pang Work Phone: [facility] Work Phone: 11-02-2021 06:20-0500 Heart rate 64 /min Dr. Angel Pang Work Phone: [facility] Work Phone: 11-02-2021 06:20-0500 Respiratory rate 16 /min Dr. Angel Pang Work Phone: [facility] Work Phone: 11-02-2021 06:20-0500 SaO2% (BldA) [Mass fraction] 97 % Dr. Angel Pang Work Phone: [facility] Work Phone: 11-02-2021 06:20-0500 Systolic blood pressure 108 mm[Hg] Dr. Angel Pang Work Phone: [facility] Work Phone: 11-02-2021 05:01-0500 Body mass index (BMI) [Ratio] 33.3 kg/m2 Dr. Angel Pang Work Phone: [facility] Work Phone: 11-02-2021 05:01-0500 Body weight 105.[address] Angel Pang Work Phone: [facility] Work Phone: Encounters Encounter Date Encounter Type Care Provider Facility Start: 03-11-2025 End: 03-11-[address] Angel Pang MD Work Phone: -Laboratory Start: 03-11-2025 End: 03-11-[address] Angel Pang MD -Laboratory Work Phone: Start: 03-11-2025 End: 03-11-2025 ambulatory Angel Pang Facility:[facility] Start: 12-07-2024 End: 12-07-[address] Angel Pang MD Work Phone: [facility] Work Phone: Start: 12-07-2024 End: 12-07-[address] Angel Pang MD -Laboratory Work Phone: Start: 12-07-2024 End: 12-07-2024 ambulatory Angel Yovany Pang Facility:[facility] Start: 09-07-2024 End: 09-07-[address] Angel Pang MD -Laboratory Work Phone: Start: 09-07-2024 End: 09-07-2024 ambulatory [facility] Facility:[facility] Start: 08-29-2024 End: 08-29-[address] Angel Pang MD -Laboratory, Phy Office 3rd [facility] Start: 08-29-2024 End: 08-29-2024 ambulatory [facility] Facility:[facility] Start: 08-20-2024 Encounter for preprocedural laboratory examination Steffen Hendrickson [facility] Start: 07-25-2024 ambulatory Steffen Hendrickson [facility] Start: 07-24-2024 End: 07-24-2024 ambulatory Steffen Hendrickson Facility:[facility] Start: 06-27-2024 End: 06-27-2024 ambulatory Steffen Hendrickson [facility] Start: 06-27-2024 End: 06-27-2024 ambulatory [facility] Facility:[facility] Start: 05-24-2024 End: 05-24-2024 ambulatory [facility] Facility:[facility] Start: 12-06-2023 End: 12-06-2023 ambulatory [facility] Work Phone: Start: 12-06-2023 End: 12-06-2023 Patient encounter procedure [facility]-Outpatient Breast Imaging Work Phone: Start: 11-25-2023 End: 11-25-2023 ambulatory [facility] Work Phone: Start: 11-25-2023 End: 11-25-2023 Patient encounter procedure [facility]-Laboratory, Phy Office 3rd Flr Start: 09-02-2023 End: 09-02-2023 ambulatory [facility] Work Phone: Start: 09-02-2023 End: 09-02-2023 Patient encounter procedure [facility]-Ultrasound, [facility] Work Phone: Start: 08-26-2023 End: 08-26-2023 ambulatory [facility] Work Phone: Start: 08-26-2023 End: 08-26-2023 Patient encounter procedure [facility]-Pulmonary Services/Neurology Work Phone: Start: 08-24-2023 End: 08-24-2023 ambulatory [facility] Work Phone: Start: 08-24-2023 End: 08-24-2023 Patient encounter procedure [facility]-Laboratory, Phy Office 3rd Flr Start: 08-17-2023 End: 08-17-2023 ambulatory [facility] Work Phone: Start: 08-17-2023 End: 08-17-2023 Patient encounter procedure [facility]-Radiology, [facility] Work Phone: Start: 11-16-2022 Non-patient / Non-visit Dr. Alexandru Pang Work Phone: [facility] Start: 11-16-2022 End: 11-16-[address] Angel Pang Work Phone: [facility] Work Phone: Start: 11-16-2022 End: 11-16-[address] Angel Pang Work Phone: [facility]-Cardiovascula r Services Start: 08-16-2022 End: 08-16-2022 Emergency department patient visit [facility]-Emergency Department Start: 08-09-2022 End: 08-09-2022 ambulatory [facility] Work Phone: Start: 08-09-2022 End: 08-09-2022 [facility] Start: 05-27-2022 End: 05-27-2022 ambulatory [facility] Work Phone: Start: 05-27-2022 End: 05-27-2022 Patient encounter procedure [facility]-Laboratory, Phy Office 3rd Flr Start: 04-10-2022 End: 04-10-2022 Emergency department patient visit [facility]-Emergency Department Start: 02-19-2022 End: 02-19-[address] [facility] Start: 12-07-2021 End: 12-07-[address] Angel Pang Work Phone: [facility] Start: 11-25-2021 Non-patient / Non-visit Dr. Alexandru Pang Work Phone: [facility] Start: 11-25-2021 End: 11-25-2021 Admission to same day surgery center Dr[facility] Start: 11-12-2021 End: 11-12-[address] Angel Pang Work Phone: [facility] Start: 11-12-2021 End: 11-12-[address] [facility] Start: 11-02-2021 Non-patient / Non-visit Dr. Alexandru Pang Work Phone: [facility] Start: 11-02-2021 End: 11-02-2021 Admission to same day surgery center Dr. Angel Pang Work Phone: [facility]-Endoscopy Start: 06-26-2021 End: 06-26-2021 ambulatory [facility] Start: 01-30-2021 End: 01-30-2021 ambulatory [facility] Start: 09-22-2020 End: 09-22-2020 ambulatory [facility] Procedures Date Procedure Procedure Detail Performing Clinician Start: 12-06-2023 Bilateral mammography Start: 12-06-2023 Ultrasonography of breast Start: 12-06-2023 Ultrasound of scrotu m with Doppler and color flow imaging Start: 09-02-2023 Ultrasound elastogra phy of liver Start: 08-26-2023 Coronavirus COVID-19 PCR Start: 08-26-2023 Influenza Types A,B Direct FA (DELISA) Start: 08-26-2023 Respiratory syncytia l virus antigen assay Start: 08-17-2023 X-ray of lumbar spin e, two or three views Start: 08-16-2022 Plain chest X-ray Start: 08-09-2022 X-ray of cervical spine Start: 05-27-2022 Diagnostic radiograp hy of abdomen, decubitus and erect Start: 11-25-[address] Angel flanagan Work Phone: Start: 11-25-2021 Fluoroscopic guidance Julita Pang Work Phone: Start: 11-24-2021 End: 11-24-[address] Angel Pang Work Phone: Start: 10-30-2021 SARS-CoV-2 Antigen (Rapid) Dr. Angel Pang Work Phone: Plan of Treatment Date Care Activity Detail Author Start: 08-16-2022 [facility] Start: 11-25-2021 Anes intraperitoneal upper abdomen w/laps nos ANESTH SURG UPPER ABDOMEN [facility] Work Phone: Start: 11-25-2021 Laps surg cholecystectomy w/cholangiography LAPARO CHOLECYSTECTOMY/GRAPH [facility] Work Phone: Start: 11-02-2021 Colonoscopy flx dx w/collj spec when pfrmd DIAGNOSTIC COLONOSCOPY [facility] Work Phone: Start: 11-02-2021 Egd transoral biopsy single/multiple EGD BIOPSY SINGLE/MULTIPLE [facility] Work Phone: Patient Education [facility] Work Phone: Patient referral [facility] Work Phone: Payers Date Payer Category Payer Self-pay [id number] 2024 Self-pay 2024 Unknown [id number] 1975 Unknown [id number] [id number] 1975 Unknown [id number] 2.16.84 [id number] 1975 Unknown [id number] 2.16.84 [id number] Medicaid [id number] Unknown Unknown [facility] PACKAGE PLAN [id number] Unknown [id number] 2.16.8 [id number] Unknown [id number] 2.16.8 [id number] Unknown [id number] 2.16.8 [id number] Unknown [id number] 2.16.8 [id number] Unknown [id number] 2.16.8 [id number] Unknown [id number] 2.16.8 [id number] Unknown [id number] 2.16.8 [id number] Unknown [id number] 2.16.8 [id number] Unknown [id number] 2.16.8 [id number] Social History Date Type Detail Facility Start: 11-19-2021 End: 08-16-2022 Tobacco smoking status NHIS Unknown if ever smoked [facility] Start: 01-10-2017 Occasional [facility] Start: 01-10-2017 None [facility] Start: 01-10-2017 With Family [facility] Start: 1975 Sex Assigned At Male W [facility] Start: 06-27-2024 [facility] Start: 12-11-2024 Sex Male (finding) [facility] Medical Equipment Procedure Code Equipment Code Equipment Original Text Equipment Identifier Dates Total cholecystectomy with exploration of common bile duct Ligation clip, synthetic polymer, non-bioabsorbable ([id number] FDA Start: 11-25-2021 Functional Status Date Assessment Result Facility 11-25-2021 Functional status Ambulates;Up ad jeovanny [facility] Work Phone: Mental Status Date Assessment Result Facility 08-16-2022 Cognitive function Voice/Name [facility] Work Phone: 04-10-2022 Cognitive function Level Of Cons ciousness Awake;Alert;Appropriate [facility] Work Phone: 11-25-2021 Cognitive function Voice/Name [facility] Work Phone: 11-02-2021 Cognitive function Level Of Cons ciousness Awake;Appropriate [facility] Work Phone: 11-02-2021 Cognitive function Patient Orien tation Person;Place;Time [facility] Work Phone: Evaluation note Note Date & Type Note Facility Evaluation note Diagnosis Onset Date Biliary dyskinesia acute Biliary dyskinesia acute Chronic cholecystitis with calculus chronic [facility] Work Phone: Evaluation note Note Date & Type Note Facility Evaluation note No assessment information availa ble [facility] Work Phone: Reason for referral (narrative) Note Date & Type Note Facility Reason for referral (narrative) No reason for referral information available [facility] Work Phone: Summary Purpose Family History No Family History Records Found Relationship Condition Age at Onset Recorded Date/T moe father Diabetes mellitus Unknown Cardiac disease Unknown Hypertension Unknown Kidney disorder Unknown High blood cholesterol Unknown brother Kidney disorder Unknown Relationship Condition Age at Onset Recorded Date/T moe father Diabetes mellitus Unknown Cardiac disease Unknown Hypertension Unknown Kidney disorder Unknown High blood cholesterol Unknown brother Kidney disorder Unknown Diabetes mellitus Unknown grandfather Cerebrovascular accident (CVA) Unknown grandmother Cardiac disease Unknown Advance Directives No Advanced Directives Records Found Advance Directive Response Recorded Date/ Time Living Will No November 19, 2021 2:43pm Power of Roving Weight Gauger No November 19 2:43pm Advance Directive Response Recorded Date/ Time Living Will No April 10, 2022 7:41pm Power of Roving Weight Gauger No April 10 7:41pm Advance Directive Response Recorded Date/ Time Living Will No April 10, 2022 6:41pm Power of Roving Weight Gauger No April 10 6:41pm Advance Directive Response Recorded Date/ Time Living Will No August 16 11:11am Power of Roving Weight Gauger No August 16, 2022 11:11am Advance Directive Response Recorded Date/ Time Living Will No August 16 12:11pm Power of Roving Weight Gauger No August 16, 2022 12:11pm Chief Complaint and Reason for Visit Chief Complaint Pre-Surgical Testing PAT post EGD--discuss mary LAP MARY W IOC LAP MARY W IOC F/U 11/25 GALLBLADDER Reason for Visit Biliary dyskinesia Biliary dyskinesia Chronic cholecystitis with calculus Chief Complaint SWALLOWED CH[place]EN [place] Chief Complaint palpitations Chief Complaint palpitations CHEST PAIN CHEST PAIN Chief Complaint Chills (without feve r) Chief Complaint Chills (without feve r) Hepatic fibrosis, unspecified Chief Complaint Chills (without feve r) Hepatic fibrosis, unspecified LT BREAST MASS, LT AXILLA MASS,SCROTAL MASS Additional Source Comments (unrecognized sect ion and content) No Status Records FoundNo Status Records FoundNo Status Records FoundNo Status Records Found INFORMATION SOURCE (unrecogn ized section and content) DATE CREATED AUTHOR 04/13/2020 [facility] DATE CREATED AUTHOR AUTHOR'S ORGANIZ ATION 06/29/2021 [facility] DATE CREATED AUTHOR AUTHOR'S ORGANIZ ATION 07/02/2021 Lalito Harris [facility] DATE CREATED AUTHOR AUTHOR'S ORGANIZ ATION 03/17/2025 [facility] Goals (unrecognized section and content) Goals may be documented in a n alternate sectionGoals may be documented in an alternate sectionGoals may be documented in an alternate sectionGoals may be documented in an alternate sectionGoals may be documented in an alternate sectionGoals may be documented in an alternate sectionGoals may be documented in an alternate sectionGoals may be documented in an alternate sectionGoals may be documented in an alternate sectionGoals may be documented in an alternate sectionGoals may be documented in an alternate sectionGoals may be documented in an alternate sectionGoals may be documented in an alternate sectionGoals may be documented in an alternate section Care Teams (unrecognized sec tion and content) Team Status: Active Member Role Status Dates Dr. Jennifer Champagne MD Family Provider Active Dr. Angel Pang MD Primary Care Provider Active Team Status: Active Member Role Status Dates Dr. Angel Pang MD Primary Care Provider, Other Pro vider Active Dr. Jaun Meyers MD Attending Provider Active Team Status: Inactive Member Role Status Dates Dr. Angel Pang MD Primary Care Provider, Attending Provider Active Team Status: Inactive Member Role Status Dates Dr. Angel Pang MD Primary Care Provider Active Dr. Ede Kelley DO Attending Provider, Emergency [facility] Active Team Status: Inactive Member Role Status Dates Dr. Angel Pang MD Primary Care Provider Active Dr. Kiran Stephens DPM Attending Provider, Referring Provider Active Team Status: Inactive Member Role Status Dates Dr. Angel Pang MD Primary Care Provi jermaine, Attending Provider, Referring Provider Active Team Status: Active Member Role Status Dates Dr. Angel Pang MD Primary Care Provi jermaine, Attending Provider, Referring Provider Active Team Status: Inactive Member Role Status Dates Dr. Angel Pang MD Primary Care Provider Active Start: August 29, 2024 End: August 29, 2024 Dr. Angel Pang MD Attending Provider Active Start: August 29, 2024 End: August 29, 2024 Team Status: Inactive Member Role Status Dates Dr. Angel Pang MD Primary Care Provider Active Start: September 07, 2024 End: September 07, 2024 Dr. Angel Pang MD Attending Provider Active Start: September 07, 2024 End: September 07, 2024 Dr. Angel Pang MD Referring Provider Active Start: September 07, 2024 End: September 07, 2024 Team Status: Inactive Member Role Status Dates Dr. Angel Pang MD Primary Care Provider Active Start: December 07, 2024 End: December 07, 2024 Dr. Angel Pang MD Attending Provider Active Start: December 07, 2024 End: December 07, 2024 Dr. Angel Pang MD Referring Provider Active Start: December 07, 2024 End: December 07, 2024 Team Status: Active Member Role/Relationship Status Dates Dr. Jennifer Champagne MD Family Provider Active Dr. Angel Pang MD Primary Care Provider Active Team Status: Inactive Member Role/Relationship Status Dates Dr. Angel Pang MD Primary Care Provider Active Start: December 07, 2024 End: December 07, 2024 Dr. Angel Pang MD Attending Provider Active Start: December 07, 2024 End: December 07, 2024 Dr. Angel Pang MD Referring Provider Active Start: December 07, 2024 End: December 07, 2024 Team Status: Inactive Member Role/Relationship Status Dates Dr. Angel Pang MD Primary Care Provider Active Start: March 11, 2025 End: March 11, 2025 Dr. Angel Pang MD Attending Provider Active Start: March 11, 2025 End: March 11, 2025 Dr. Angel Pang MD Referring Provider Active Start: March 11, 2025 End: March 11, 2025 FOR RECORDS PERTAINING TO PATIENTS WHO ARE [...] BE BASED ON THE PRIMARY CLINICAL RECORDS. [facility] provides no warranty or guarantee of the accuracy or completeness of information in this document.
== END | disposition home or self-care (01) ==
PROVIDERS: PCP Family Medicine Geriatric Medicine; Referring Provider Family Medicine Geriatric Medicine; Visit Provider Family Medicine Geriatric Medicine
DX: R10.9 Unspecified abdominal pain (principal)
CPT/HCPCS: 76705